=== PATIENT | female | born 1940 | race Caucasian/White ===

== ENCOUNTER → 2017-06-25 09:48 | Outpatient (CLI) | payer MEDICARE, SELFPAY ==
[2017-06-25 13:39] LABS: Absolute Neutrophil Count 3.1 X10^3/uL (2.0-7.7); Basophil# 0.02 X10^3/uL; Basophil% 0.4 % (0-1); Eosinophil# 0.09 X10^3/uL; Eosinophils% 1.7 % (0-5); Hematocrit 40.6 % (37-47); Hemoglobin 13.6 g/dl (12.0-15.0); Lymphocyte % 30.2 % (19-41); Mean Corp Hgb Conc 33.5 g/gl (32-36); Mean Corpuscular Hgb 32.9 pg (27.0-32.0); Mean Corpuscular Volume 98.1 fL (81-99); Mean Platelet Vol. 10.9 fl (6.2-12.0); Monocyte# 0.44 X10^3/uL; Monocyte% 8.3 % (0-10); Neutrophil # 3.14 X10^3/uL (2.7-7.7); Neutrophil % 59.2 % (47-70); Platelet Count 171 K/mm3 (150-450); RBC Distribution Width CV 12.2 % (11.6-14.6); RBC Distribution Width SD 43.3 fl (35.1-43.9); Red Blood Count 4.14 M/mm3 (4.2-5.4); White Blood Count 5.3 K/mm3 (4.4-11.0)
[2017-06-25 13:41] LABS: POSITIVE COUNT NO; POSITIVE DIFFERENTIAL NO; POSITIVE MORPHOLOGY NO
[2017-06-25 14:13] LABS: AST(SGOT) 27 U/L (15-37); Alanine Aminotransfer ALT/SGPT 17 U/L (13-56); Albumin, Serum 3.5 g/dL (3.2-5.0); Alkaline Phosphatase 89 U/L (45-117); Anion Gap 9 (5-15); BUN 11 mg/dL (7-18); BUN/Creat Ratio 12.9 RATIO (10-20); Calcium,Total 8.9 mg/dL (8.5-10.1); Chloride 105 mmol/L (98-107); Cholesterol 190 mg/dL (200); Creatinine, Serum 0.85 mg/dL (0.55-1.02); EST Glomerular Filtration Rate 69 mL/min (>60); Est Glom Filt Rate - Afr Amer 84 mL/min (>60); Globulin 3.5 g/dL (2.2-4.2); Glucose 86 mg/dL (74-106); High Density Lipoprotein 64 mg/dL; Potassium 4.1 mmol/L (3.5-5.1); Sodium Level 143 mmol/L (136-145); Thyroid Stim Hormone (TSH) 7.39 uIU/mL (0.358-3.74); Triglycerides 119 mg/dL; Very Low Density Lipoprotein 24 mg/dL (5-40)
[2017-06-26 09:41] LABS: Vitamin D,25 Hydroxy 30.6 ng/mL (29.95-100.01)
== END ==
PROVIDERS: Visit Provider Family Medicine Geriatric Medicine
DX: R53.83 Other fatigue (principal); E55.9 Vitamin D deficiency, unspecified; E78.4 Other hyperlipidemia
CPT/HCPCS: 36415; 80053; 80061; 82306; 84443; 85025

== ENCOUNTER → 2017-08-08 09:29 | Outpatient (CLI) | payer MEDICARE, SELFPAY ==
[2017-08-08 13:22] LABS: Thyroid Stim Hormone (TSH) 3.41 uIU/mL (0.358-3.74)
== END ==
PROVIDERS: Visit Provider Family Medicine Geriatric Medicine
DX: E05.90 Thyrotoxicosis, unspecified without thyrotoxic crisis or storm (principal)
CPT/HCPCS: 36415; 84443

== ENCOUNTER → 2017-12-30 12:14 | Outpatient (CLI) | payer MEDICARE, SELFPAY ==
[2017-12-30 13:22] LABS: Absolute Lymphocyte Count 1.54 X10^3/ul (0.83-4.51); Absolute Neutrophil Count 3.2 X10^3/uL (2.0-7.7); Basophil# 0.03 X10^3/uL; Basophil% 0.6 % (0-1); Eosinophils% 1.9 % (0-5); Hematocrit 41.7 % (37-47); Hemoglobin 13.6 g/dl (12.0-15.0); Lymphocyte # 1.54 X10^3/ul (4.0); Mean Corp Hgb Conc 32.6 g/gl (32-36); Mean Corpuscular Hgb 32.3 pg (27.0-32.0); Mean Platelet Vol. 10.8 fl (6.2-12.0); Monocyte# 0.45 X10^3/uL; Monocyte% 8.5 % (0-10); Neutrophil # 3.19 X10^3/uL (2.7-7.7); Platelet Count 185 K/mm3 (150-450); RBC Distribution Width SD 46.1 fl (35.1-43.9); Red Blood Count 4.21 M/mm3 (4.2-5.4); White Blood Count 5.3 K/mm3 (4.4-11.0)
[2017-12-30 13:28] LABS: POSITIVE COUNT NO; POSITIVE DIFFERENTIAL NO; POSITIVE MORPHOLOGY NO
[2017-12-30 13:44] LABS: ALB/GLOB Ratio 1.1 RATIO (0.9-2.4); AST(SGOT) 27 U/L (15-37); Alanine Aminotransfer ALT/SGPT 21 U/L (13-56); Albumin, Serum 3.7 g/dL (3.2-5.0); Alkaline Phosphatase 83 U/L (45-117); Anion Gap 11 (5-15); BUN 15 mg/dL (7-18); BUN/Creat Ratio 18.7 RATIO (10-20); Calcium,Total 8.8 mg/dL (8.5-10.1); Chloride 105 mmol/L (98-107); Cholesterol 182 mg/dL (200); EST Glomerular Filtration Rate 74 mL/min (>60); Est Glom Filt Rate - Afr Amer 89 mL/min (>60); Globulin 3.3 g/dL (2.2-4.2); Glucose 82 mg/dL (74-106); High Density Lipoprotein 70 mg/dL; Potassium 4.1 mmol/L (3.5-5.1); Sodium Level 145 mmol/L (136-145); Thyroid Stim Hormone (TSH) 3.02 uIU/mL (0.358-3.74); Triglycerides 116 mg/dL; Very Low Density Lipoprotein 23 mg/dL (5-40)
== END ==
PROVIDERS: Visit Provider Family Medicine Geriatric Medicine
DX: E55.9 Vitamin D deficiency, unspecified (principal); R53.83 Other fatigue; E78.4 Other hyperlipidemia
CPT/HCPCS: 36415; 80053; 80061; 82306; 84443; 85025

== ENCOUNTER → 2018-07-03 11:55 | Outpatient (CLI) | payer MEDICARE, SELFPAY ==
[2018-07-03 14:22] LABS: Absolute Lymphocyte Count 2.08 X10^3/ul (0.83-4.51); Absolute Neutrophil Count 3.9 X10^3/uL (2.0-7.7); Basophil# 0.04 X10^3/uL; Basophil% 0.6 % (0-1); Eosinophil# 0.11 X10^3/uL; Eosinophils% 1.7 % (0-5); Hematocrit 43.2 % (37-47); Hemoglobin 13.9 g/dl (12.0-15.0); Lymphocyte # 2.08 X10^3/ul (4.0); Lymphocyte % 31.4 % (19-41); Mean Corp Hgb Conc 32.2 g/gl (32-36); Mean Corpuscular Hgb 32.3 pg (27.0-32.0); Mean Corpuscular Volume 100.2 fL (81-99); Mean Platelet Vol. 10.2 fl (6.2-12.0); Monocyte% 7.6 % (0-10); Neutrophil # 3.87 X10^3/uL (2.7-7.7); Neutrophil % 58.4 % (47-70); Platelet Count 191 K/mm3 (150-450); RBC Distribution Width CV 12.8 % (11.6-14.6); RBC Distribution Width SD 46.1 fl (35.1-43.9); Red Blood Count 4.31 M/mm3 (4.2-5.4); White Blood Count 6.6 K/mm3 (4.4-11.0)
[2018-07-03 14:23] LABS: POSITIVE COUNT NO; POSITIVE DIFFERENTIAL NO; POSITIVE MORPHOLOGY NO
[2018-07-03 14:30] LABS: Vitamin D,25 Hydroxy 30.3 ng/mL (29.95-100.01)
[2018-07-03 14:48] LABS: ALB/GLOB Ratio 1.1 RATIO (0.9-2.4); AST(SGOT) 23 U/L (15-37); Alanine Aminotransfer ALT/SGPT 18 U/L (13-56); Albumin, Serum 3.7 g/dL (3.2-5.0); Alkaline Phosphatase 76 U/L (45-117); Anion Gap 7 (5-15); BUN 12 mg/dL (7-18); BUN/Creat Ratio 13.4 RATIO (10-20); Calcium,Total 8.8 mg/dL (8.5-10.1); Chloride 106 mmol/L (98-107); Cholesterol 201 mg/dL (200); Creatinine, Serum 0.89 mg/dL (0.55-1.02); EST Glomerular Filtration Rate 65 mL/min (>60); Est Glom Filt Rate - Afr Amer 79 mL/min (>60); Globulin 3.3 g/dL (2.2-4.2); Glucose 97 mg/dL (74-106); High Density Lipoprotein 76 mg/dL; Potassium 3.9 mmol/L (3.5-5.1); Sodium Level 143 mmol/L (136-145); Thyroid Stim Hormone (TSH) 3.15 uIU/mL (0.358-3.74); Triglycerides 88 mg/dL; Very Low Density Lipoprotein 18 mg/dL (5-40)
== END ==
PROVIDERS: Family Provider Family Medicine Geriatric Medicine; PCP Family Medicine Geriatric Medicine; Referring Provider Family Medicine Geriatric Medicine; Visit Provider Family Medicine Geriatric Medicine
DX: R53.83 Other fatigue (principal); E78.5 Hyperlipidemia, unspecified; E55.9 Vitamin D deficiency, unspecified
CPT/HCPCS: 36415; 80053; 80061; 82306; 84443; 85025

== ENCOUNTER → 2018-08-01 12:11 | Outpatient (CLI) | payer MEDICARE, SELFPAY ==
--- NOTE | 2018-08-01 | BI_ITS ---
MAMMOGRAPHY - BILATERAL SCREENING REASON FOR EXAM: Female, 78 years old. Routine annual screening examination. PERTINENT HISTORY: Sister with breast cancer. TECHNIQUE: Digital bilateral breast matt (3D mammographic acquisition) in the CC and MLO projections. 2-D mediolateral oblique (MLO) and craniocaudad (CC) views of both breasts were obtained. CAD: Full Field Digital Mammography with Computer Added Detection was performed. COMPARISON: Comparison is made with prior study dated October 02, 2016 and August 01, 2015. FINDINGS: Breast Composition: There are scattered areas of fibroglandular density. There are no dominant masses or suspicious calcifications. No other significant abnormalities are identified. There has been no significant change since the prior study. BI/SCREENING MAMM (CAD), BILAT IMPRESSION: Stable bilateral screening mammogram. Yearly follow-up mammogram recommended. (A) ASSESSMENT CATEGORY: BIRADS Category 1: Negative. A letter regarding these results will be sent to the patient by the facility within 30 days. Approximately 10% of breast cancers are not detected by mammography. A normal mammogram should not delay biopsy of a clinically suspicious abnormality. [id number] Electronically Signed: Alberto Laurent, at 13:44 EDT , Service support ,
--- NOTE | 2018-08-01 12:45 | CT_ITS ---
STUDY: LOW DOSE CT LUNG CANCER SCREENING REASON FOR EXAM: Female, 78 years old. Tobacco abuse, one half pack per day 35 years, screening. RADIATION DOSAGE (If Supplied By Facility): CTDIvol = ( 1.70 ) mGy, DLP = ( 56.37 ) mGycm Individualized dose optimization techniques were used for this CT. TECHNIQUE: No contrast was administered. Low dose technique was utilized (average mAS-38 and kVp 120). Thin slice transaxial CT imaging of the chest. Correlate sagittal 2-D MPR Nodule measured using lung windows on PACS and/or independent workstation with automated measurement of minimum and maximum diameter. Nodule measurement reported as average diameter rounded to the nearest whole number. Growth is defined as an increase ins size of greater than 1.5 mm. COMPARISON: CT Low Dose chest screening 06/30/2015, 12/07/2014.. FINDINGS: Total lung nodules (excluding granulomas): A few small noncalcified pulmonary nodules are present, the largest in the left lower lobe posterior basilar measuring 4 mm. Largest in the right lower lobe measuring 3.8 mm. Stable pattern compared to prior imaging and most consistent with sequela of old granulomatous disease. Multiple calcified pulmonary nodules consistent with old granulomas disease. Emphysema: Generalized pulmonary hyperlucency and hyperinflation with flattening of hemidiaphragms in a pattern consistent with the presence of COPD without clark features of centrilobular or paraseptal emphysema. Endobronchial lesion: Left lower lobar bronchus, endobronchial nodule measuring approximately 3.2 mm. This was not clearly apparent on prior imaging of 2015. Aorta: Nondilated. Coronary arteries: Prominent chronic calcifications of the LAD, left main, RCA, minimal of the circumflex. Heart: No cardiomegaly or pericardial effusion. Pulmonary artery: Nondilated. Mediastinal nodes: Multiple calcified lymph nodes of the mediastinum consistent with old granulomatous disease. Calcified lymph nodes also in the ana bilaterally. No acute lymphadenopathy. Normal esophagus. Other chest and abdominal findings: Supraclavicular soft tissues, body wall soft tissues, upper abdomen, and osseous structures exhibit no acute process. CT/Low Dose CT Lung Screening IMPRESSION: Probably calcified small pulmonary nodules. A few noncalcified pulmonary nodules are present, stable pattern. Each of these is most consistent with chronic manifestation of old granulomatous disease. ACR lung RADS category 2, benign appearance. Prominent coronary atherosclerosis. Continue annual low-dose CT chest screening. IMPORTANT NOTES FOR USE: ACR Lung-RADS Version 1.0 Assessment Categories Release Date: August 10, 2013 Category: Coded 0-4 bases on nodule(s) with highest degree of suspicion. Negative screen is defined as categories 1 and 2; a positive screen is defined as categories 3 and 4. Category 3 and 4A nodules that are unchanged on interval CT should be coded as category 2, and individuals returned to screening in 12 months. Category 4X: Category 3 or 4 nodules with additional imaging findings that increase the suspicion of lung cancer, such as spiculation, GGN that doubles in size in 1 year, enlarged lymph notes, etc. Category Modifiers: S (significant finding unrelated to lung cancer) and C (prior history of treated lung cancer) may be added to the 0-4 Lung-RADS Electronically Signed: aJnes Bacon MD at 17:51 EDT Tel , Service support ,
== END ==
PROVIDERS: Family Provider Family Medicine Geriatric Medicine; PCP Family Medicine Geriatric Medicine; Referring Provider Family Medicine Geriatric Medicine; Visit Provider Family Medicine Geriatric Medicine
DX: Z12.31 Encounter for screening mammogram for malignant neoplasm of breast (principal); Z87.891 Personal history of nicotine dependence
CPT/HCPCS: 77063; 77067; G0297

== ENCOUNTER → 2018-08-15 11:06 | Outpatient (CLI) | payer MEDICARE, SELFPAY ==
[2018-08-15 13:17] LABS: T4 Total, Thyroxin 11.6 ug/dL (4.8-13.9); Vitamin D,25 Hydroxy 26.1 ng/mL (29.95-100.01)
== END ==
PROVIDERS: Family Provider Family Medicine; PCP Family Medicine; Referring Provider Family Medicine; Visit Provider Family Medicine
DX: E03.9 Hypothyroidism, unspecified (principal); E55.9 Vitamin D deficiency, unspecified
CPT/HCPCS: 36415; 82306; 84436; 84443

== ENCOUNTER → 2019-08-19 11:20 | Outpatient (CLI) | payer MEDICARE, SELFPAY ==
[2019-08-19 15:57] LABS: T4 Total, Thyroxin 12.5 ug/dL (4.8-13.9); Thyroid Stim Hormone (TSH) 2.54 uIU/mL (0.358-3.74)
== END ==
PROVIDERS: PCP Family Medicine; Visit Provider Family Medicine
DX: E03.9 Hypothyroidism, unspecified (principal)
CPT/HCPCS: 36415; 84436; 84443

== ENCOUNTER → 2020-08-22 15:53 | Outpatient (CLI) | payer MEDICARE, SELFPAY ==
[2020-08-22 18:29] LABS: Vitamin D,25 Hydroxy 37.6 ng/mL
[2020-08-22 18:41] LABS: T4 Total, Thyroxin 10.8 ug/dL (4.8-13.9); Thyroid Stim Hormone (TSH) 4.66 uIU/mL (0.358-3.74)
== END ==
PROVIDERS: PCP Family Medicine; Referring Provider Family Medicine; Visit Provider Family Medicine
DX: E55.9 Vitamin D deficiency, unspecified (principal); E03.9 Hypothyroidism, unspecified
CPT/HCPCS: 36415; 82306; 84436; 84443

== ENCOUNTER → 2020-08-29 13:48 | Outpatient (CLI) | payer MEDICARE, SELFPAY ==
--- NOTE | 2020-08-29 13:51 | CT_ITS ---
STUDY: LOW DOSE CT LUNG CANCER SCREENING REASON FOR EXAM: Female, 80 years old. Long history of smoking. Screening for lung cancer. RADIATION DOSAGE (If Supplied By Facility): CTDIvol = ( 2.01 ) mGy, DLP = ( 66.95 ) mGycm TECHNIQUE: No contrast was administered. Low dose technique was utilized (average mAS-38 and kVp 120). 1.25 mm axial source images with a slice interval of 1.25-mm were reconstructed in lung windows. 2.5 mm axial source images with a slice interval of 2.5-mm were reconstructed in lung windows. 5.0 mm axial source images with a slice interval of 5.0-mm were reconstructed in soft tissue windows. Nodule measured using lung windows on PACS and/or independent workstation with automated measurement of minimum and maximum diameter. Nodule measurement reported as average diameter rounded to the nearest whole number. Growth is defined as an increase ins size of greater than 1.5 mm. COMPARISON: 08/01/2018 NODULES: There is hyperinflation of the lungs consistent with chronic obstructive lung disease (COPD). Multiple stable noncalcified pulmonary nodules are again noted, the largest in the left lower lobe posterior basilar measuring 6 x 4 mm. Largest in the right lower lobe measuring 3 x 4 mm. Multiple stable calcified pulmonary nodules consistent with old granulomatous disease. There are no endobronchial lesions. There is no demonstrated pleural abnormality. Normal heart and pericardium. Normal mediastinum. Normal hilar regions. Normal unenhanced pulmonary arteries. Normal aorta arch and descending thoracic aorta. Normal osseous structures. There is no demonstrated abnormality of the visualized upper abdomen. CT/Low Dose CT Lung Screening IMPRESSION: Lung-RADS category 2. Benign findings. Multiple stable noncalcified pulmonary nodules are again noted, the largest in the left lower lobe posterior basilar measuring 6 x 4 mm. Largest in the right lower lobe measuring 3 x 4 mm. Multiple stable calcified pulmonary nodules consistent with old granulomatous disease. Recommendation: Routine screening CT scan in one year. IMPORTANT NOTES FOR USE: ACR Lung-RADS Version 1.0 Assessment Categories Release Date: August 10, 2013 Category: Coded 0-4 bases on nodule(s) with highest degree of suspicion. Negative screen is defined as categories 1 and 2; a positive screen is defined as categories 3 and 4. Category 3 and 4A nodules that are unchanged on interval CT should be coded as category 2, and individuals returned to screening in 12 months. Category 4X: Category 3 or 4 nodules with additional imaging findings that increase the suspicion of lung cancer, such as spiculation, GGN that doubles in size in 1 year, enlarged lymph notes, etc. Category Modifiers: S (significant finding unrelated to lung cancer) and C (prior history of treated lung cancer) may be added to the 0-4 Lung-RADS Electronically Signed: Thierry Aragon MD at 7:09 EDT Tel , Service support ,
== END ==
PROVIDERS: PCP Family Medicine; Referring Provider Family Medicine; Visit Provider Family Medicine
DX: Z12.2 Encounter for screening for malignant neoplasm of respiratory organs (principal); Z87.891 Personal history of nicotine dependence
CPT/HCPCS: 71271

== ENCOUNTER → 2020-10-18 08:07 | Outpatient (CLI) | payer MEDICARE, SELFPAY ==
[2020-10-18 10:43] LABS: Thyroid Stim Hormone (TSH) 4.36 uIU/mL (0.358-3.74)
== END ==
PROVIDERS: PCP Family Medicine; Visit Provider Family Medicine
DX: E03.9 Hypothyroidism, unspecified (principal)
CPT/HCPCS: 36415; 84443

== ENCOUNTER → 2020-12-28 08:04 | Outpatient (CLI) | payer MEDICARE, SELFPAY ==
[2020-12-28 10:59] LABS: Thyroid Stim Hormone (TSH) 2.17 uIU/mL (0.358-3.74)
== END ==
PROVIDERS: PCP Family Medicine; Referring Provider Family Medicine; Visit Provider Family Medicine
DX: E03.9 Hypothyroidism, unspecified (principal)
CPT/HCPCS: 36415; 84443

== ENCOUNTER → 2021-09-13 | Outpatient (CLI) | payer MEDICARE, SELFPAY ==
[2021-09-13 18:19] LABS: Anion Gap 5 (5-15); BUN 20 mg/dL (7-18); BUN/Creat Ratio 23.3 RATIO (10-20); Calcium,Total 9.2 mg/dL (8.5-10.1); Chloride 106 mmol/L (98-107); Creatinine, Serum 0.86 mg/dL (0.55-1.02); EST Glomerular Filtration Rate 68 mL/min (>60); Est Glom Filt Rate - Afr Amer 82 mL/min (>60); Glucose 88 mg/dL (74-106); Potassium 4.7 mmol/L (3.5-5.1); Sodium Level 142 mmol/L (136-145); T4 Total, Thyroxin 12.7 ug/dL (4.8-13.9); Thyroid Stim Hormone (TSH) 3.11 uIU/mL (0.358-3.74)
== END | disposition home or self-care (01) ==
LOC: MFPLAB 16:27
PROVIDERS: PCP Family Medicine; Visit Provider Family Medicine
DX: Z00.00 Encounter for general adult medical examination without abnormal findings (principal); E03.9 Hypothyroidism, unspecified
CPT/HCPCS: 36415; 80048; 84436; 84443

== ENCOUNTER → 2021-09-16 | Outpatient (CLI) | payer MEDICARE, SELFPAY ==
--- NOTE | 2021-09-16 09:56 | CT_ITS ---
HISTORY: SMOKER-1PPD X 60 YEARS. TECHNIQUE: Helically acquired images were obtained of the chest without contrast. A radiation dose optimization technique was used for this scan. 750 images. COMPARISON: 08/29/2020, 08/01/2018. FINDINGS: LARGE AIRWAYS: Grossly patent with minimal adherent and dependent material. LUNGS: Emphysema without bullae. Mild biapical scarring. Calcified granulomas. Noncalcified nodules measuring up to 4 mm in the right lower lobe and 6 mm in the left lower lobe again seen. PLEURA: No pneumothorax or significant pleural effusion. HEART/PERICARDIUM: Heart within normal limits in size. Coronary artery calcification present. No pericardial effusion. VESSELS: Thoracic aorta nondilated. MEDIASTINUM/SAÚL: Numerous calcified lymph nodes. BONES/CHEST WALL: 9 mm oval right inner upper breast nodule now seen. CT/Low Dose CT Lung Screening IMPRESSION: New 9 mm right breast nodule; recommend dedicated breast imaging 2 assess for benign lesion such as intramammary lymph node versus small neoplasm. Stable bilateral pulmonary nodules. Lung-RADS category 2: Benign appearance. Continue annual screening with low-dose CT. Electronically Signed: Caroline Carpio MD at 12:42 EDT ,
== END | disposition home or self-care (01) ==
PROVIDERS: PCP Family Medicine; Visit Provider Family Medicine
DX: F17.210 Nicotine dependence, cigarettes, uncomplicated (principal)
CPT/HCPCS: 71271

== ENCOUNTER → 2021-09-20 | Outpatient (CLI) | payer MEDICARE, SELFPAY ==
--- NOTE | 2021-09-20 14:18 | BI_ITS ---
MAMMOGRAPHY - BILATERAL DIAGNOSTIC REASON FOR EXAM: Female, 81 years old. Right breast mass. PERTINENT HISTORY: Sister with breast cancer. TECHNIQUE: Digital bilateral breast matt (3D mammographic acquisition) in the CC and MLO projections. 2-D mediolateral oblique (MLO) and craniocaudad (CC) views of both breasts were obtained. CAD: Full Field Digital Mammography with Computer Added Detection was performed. COMPARISON: Comparison is made with prior study dated 08/01/2018. FINDINGS: Breast Composition: There are scattered areas of fibroglandular density. The palpable mass corresponds to a 1.1 cm x 1 cm spiculated nodule in the deep upper central portion of the right breast. Correlation with ultrasound is recommended. No other significant abnormalities are identified. BI/DIAG MAMM W/CAD, BILAT IMPRESSION: The palpable abnormality corresponds to 1.1 cm x 1 some spicular nodule in the deep upper central portion of the right breast as described. Correlation with ultrasound is recommended. ASSESSMENT CATEGORY: BIRADS Category 0: Incomplete. Need additional imaging evaluation. A letter regarding these results will be sent to the patient by the facility within 30 days. Approximately 10% of breast cancers are not detected by mammography. A normal mammogram should not delay biopsy of a clinically suspicious abnormality. Electronically Signed: Alberto Laurent MD at 15:11 EDT ,
--- NOTE | 2021-09-20 15:30 | US_ITS ---
STUDY: ULTRASOUND BREAST - RIGHT REASON FOR EXAM: Female, 81 years old. Palpable lump in the right breast. TECHNIQUE: Axial and longitudinal images of the RIGHT breast were performed with a high resolution ultrasound transducer. # OF IMAGES: 59 COMPARISON: Comparison is made with prior mammogram done earlier in the day. FINDINGS: RIGHT Breast: The mammographic abnormality corresponds to a 1 cm x 0.9 cm x 0.6 cm irregular hypoechoic solid nodule at the 1 o''clock position of the breast at 7 cm from nipple. Biopsy recommended. Incidental note is made of a heterogeneous appearance to axillary lymph nodes. The largest lymph node measures 1.9 cm x 1.3 cm x 0.8 cm. US/Breast Limited Unilateral IMPRESSION: 1 cm x 0.9 cm x 0.6 cm spiculated solid mass at the 1 o''clock position of the breast is 7 cm from nipple. Biopsy recommended. Enlarged heterogeneous appearance of the 2 axillary lymph nodes. ASSESSMENT CATEGORY: BIRADS Category 4: Suspicious - Biopsy Should Be Considered. A letter regarding these results will be sent to the patient by the facility within 30 days. Electronically Signed: Alberto Laurent MD at 15:49 EDT ,
== END | disposition home or self-care (01) ==
LOC: OPBI 14:16
PROVIDERS: PCP Family Medicine; Visit Provider Family Medicine
DX: R92.8 Other abnormal and inconclusive findings on diagnostic imaging of breast (principal); N63.10 Unspecified lump in the right breast, unspecified quadrant
CPT/HCPCS: 76642; 77062; 77066; G0279

== ENCOUNTER → 2021-09-25 | Outpatient (CLI) | payer MEDICARE, SELFPAY ==
--- NOTE | 2021-09-25 | IMM_PTH ---
PATIENT: BRANDON CAUSEY LOC: [facility] U#:[id number] AGE/SX: 81/F ROOM: RE09/25/[address]: Dr. Marlon Lockhart MD : 1940 BED: DIS: 09/25/2021 SPEC #: [id number] RECD: 09/26/21 13:34 STATUS: GENOVEVA RESharmila #: [id number] DADA: 09/25/21 00:[address]: Marlon Lockhart DEPT: IMMUNOHISTOCHEMISTRY RECD BY: Merly De La Cruz ENTERED: 09/26/21 13:35 SP TYPE: IMMUNO OTHR DR: Dr. Breonna Dooley MD Tissues: Right breast, NOS Procedures: CALPONIN-1 (add) CK5-6 (add) CK8 (add) E-CAD (add) HER2 ONI (add) KI-67 (add) P53 (add) DE (add) P40 (add) ER (initial) PHYSICIAN & [address] [address] SPECIMEN INFORMATION: Tissue Source: Right breast Clinical Info: Right breast mass Specimen Number: [id number] CPT code: 43069, 11914 x6, 81236 x3 METHODOLOGY: Deparaffinized sections of prefer/formalin-fixed tissue or PAP/DQ stained slides are incubated with monoclonal/polyclonal antibodies/oligonucleotide probes. Localization is made via biotin free immunoperoxidase method. Appropriate controls are performed and reacted as expected. Results on target cell population are indicated in the following table: RESULTS: ANTIBODY / CLONE RESULT E-Cad (ECH-6) positive CK8 (01keauA14) positive Calponin-1 (UK298P) negative CK5-6 (D5 & 1684) negative P40 (BC28) negative P53 (DO-7) positive, strong and diffuse Ki-67 (30-9) positive, low, 15-20% MORPHOMETRIC ANALYSIS ER (clone 6F11) >95%, strong intensity DE (clone 16/1E2) variable, 0-19%, weak intensity Her-2Neu (clone CB11) 1+, focal The prognostic test for HER2 is performed on formalin-fixed paraffin embedded tissue. A 3+ (positive) staining pattern is defined as intense, homogeneous, complete, circumferential membranous staining in >10% of contiguous tumor cells. A similar weak (2+) staining pattern is interpreted as equivocal. EVELIA follow-up testing is recommended for all equivocal cases. Positivity/negativity for ER/DE is reported if > or < 1% of the tumor cells are immuno- reactive, respectively. The ASCO/CAP criteria is used for scoring. Reference: Journal of Clinical Oncology, 2013; 31:9341-7494 & 2010; 16:1241-5263. Duration of fixation: 9 Hrs; Sample Adequate: Yes. These assays have not been validated on decalcified tissues. Results should be interpreted with caution given the likelihood of false negativity on decalcified specimens. These tests were developed and their performance characteristics determined by [facility]. They may not have been cleared or approved by the U.S. Food and Drug Administration. The FDA has determined that such clearance or approval is not necessary. The above immunohistochemical/dualISH markers are ordered and reviewed by the Pathologist. INTERPRETATION: Right breast mass, core biopsy: Invasive ductal carcinoma, nuclear grade 2. Positive for estrogen receptors (favorable prognostic indicator). Positive for progesterone receptors (favorable prognostic indicator). Negative for overexpression of BPB8hyx. SJ:yumiko 09/27/2021
--- NOTE | 2021-09-25 10:20 | BRBX_PTH ---
PATIENT: BRANDON CAUSEY LOC: [facility] U#:[id number] AGE/SX: 81/F ROOM: RE09/25/[address]: Dr. Marlon Lockhart MD : 1940 BED: DIS: 09/25/2021 SPEC #: [id number] RECD: 09/25/21 11:14 STATUS: GENOVEVA VÁZQUEZ #: [id number] DADA: 09/25/21 10:[address]: Marlon Lockhart DEPT: SURGICAL PATHOLOGY RECD BY: Amanda Zuniga ENTERED: 09/25/21 12:48 SP TYPE: BREAST BX OTHR DR: Dr. Breonna Dooley MD Tissues: Right breast, NOS Procedures: Surgery Specimen Level IV HEADER OPERATION: Right breast biopsy PRE-OP DIAGNOSIS: Right breast mass TISSUE SUBMITTED: Right breast tissue MICROSCOPIC DIAGNOSIS Right breast mass, core biopsy: Invasive ductal carcinoma, nuclear grade 2/3 (1 cm in greatest length). See comment. PRAKASH:yumiko 09/26/2021 COMMENT Immunohistochemistry ([id number]) supports the above diagnosis. ER/MI/Jbm8rom studies are being performed on sections of tumor and the results from this study will be reported separately ([id number]). Case has been reviewed in consultation with Dr. Dominguez who concurs with the above diagnosis. IDC:AM MICROSCOPIC DESCRIPTION Slides are reviewed. GROSS DESCRIPTION Received in fixative is one container labeled with the patient's name and designated right breast. The specimen consists of multiple elongated fragments of macias-yellow fibroadipose tissue that in aggregate measure 2 x 0.3 x 0.1 cm. The entire specimen is submitted in one cassette. / PRAKASH:yumiko 09/25/2021 TC:0 CPT: 42341
== END | disposition home or self-care (01) ==
PROVIDERS: PCP Family Medicine; Visit Provider Surgery
DX: N63.10 Unspecified lump in the right breast, unspecified quadrant (principal)
CPT/HCPCS: 88305; 88341; 88342

== ENCOUNTER 2021-10-10 08:17 | Day surgery (SDC) | payer MEDICARE, SELFPAY ==
--- NOTE | 2021-10-10 | AXNB_PTH ---
PATIENT: BRANDON CAUSEY LOC: [facility] – [place] U#:[id number] AGE/SX: 81/F ROOM: RE10/10/[address]: Dr. Marlon Lockhart MD : 1940 BED: DIS: 10/10/2021 SPEC #: [id number] RECD: 10/10/21 11:20 STATUS: GENOVEVA VÁZQUEZ #: [id number] DADA: 10/10/21 00:[address]: Marlon Lockhart DEPT: SURGICAL PATHOLOGY RECD BY: Merly De La Cruz ENTERED: 10/10/21 12:06 SP TYPE: AX NODE BX OTHR DR: Dr. Breonna Dooley MD Tissues: A - Axillary lymph node, NOS B - Right breast, NOS Procedures: Frozen Section (charge) Frozen Section Add'l ([facility]) Surgery Specimen Level V HEADER OPERATION: Ultrasound-guided wire localization lumpectomy with SN biopsy PRE-OP DIAGNOSIS: Right breast cancer TISSUE SUBMITTED: A ? Right axillary sentinel lymph nodes, FS at 11:15 a.m. B ? Right breast mass FROZEN SECTION DIAGNOSIS A. Right axillary sentinel lymph nodes, biopsy: Two out of two lymph nodes, negative for metastatic carcinoma. PRAKASH:yumiko 10/10/2021 MICROSCOPIC DIAGNOSIS A. Right axillary sentinel lymph nodes, biopsy: Two out of two lymph nodes, negative for metastatic carcinoma. See comment. B. Right breast mass, ultrasound-guided wire localization lumpectomy: Invasive ductal carcinoma. See cancer summary in the comment section. PRAKASH:yumiko 10/13/2021 COMMENT A. The lymph nodes are negative for metastatic carcinoma on multiple H & E levels and immunohisto-chemical stains for cytokeratins ([id number]). B. BREAST CANCER SUMMARY Procedure - wire localization lumpectomy Specimen laterality - right Tumor site ? not specified Tumor size ? 1.3 x 1 x 1 cm Histologic type ? invasive ductal carcinoma, no specific type. Histologic grade (Phyllis grade): Glandular/tubular differentiation score - 3 Nuclear pleomorphism score - 2 Mitotic count score - 1 Overall grade - grade 2 (score of 6) Tumor focality ? single focus of invasive carcinoma. Ductal carcinoma in situ ? not identified Lobular carcinoma in situ ? no lobular carcinoma in situ is noted in the specimen. Tumor extension: Skin ? not present Nipple ? not applicable Skeletal muscle ? not present Margins: Invasive ductal carcinoma is 0.5 cm away from the closest lateral margin. Regional lymph nodes: Total number of lymph nodes examined - 2 Number of sentinel lymph nodes examined - 2 Number of lymph nodes with macrometastases, micrometastases or isolated tumor cells - 0 Treatment effect - no known presurgical therapy. Lymphvascular invasion ? not identified Dermal lymphvascular invasion ? not applicable Distant metastasis ? not applicable Additional Pathologic Findings ? - focal mild intraductal hyperplasia without atypia. - Chronic inflammation surrounding the lobules. Ancillary Studies: Previously performed on same tumor ([id number] / [id number]) ER: positive (>95%, strong intensity) IA: positive (variable, 0-19%, weak intensity) Gsz4usk: negative (1+, focal) Microcalcifications ? present in non-neoplastic tissue. Clinical History - Please make reference to previous specimen ([id number]), right breast mass, core biopsy with diagnosis of ?invasive ductal carcinoma.? PATHOLOGIC STAGE: pT1c pN0(sn) pMx The above summary is in compliance with [employer] (CAP) Cancer Protocols Checklist and [place] Joint Committee on Cancer (AJCC), Staging Manual, 8th Ed. MICROSCOPIC DESCRIPTION Slides are reviewed. GROSS DESCRIPTION A - Received fresh for frozen section diagnosis labeled with the patient's name is a specimen designated right axillary sentinel lymph node. The specimen consists of two pieces of adipose tissue containing two nodules measuring 2 x 2 x 0.6 cm and 2 x 1.5 x 0.7 cm. Two lymph nodes are identified measuring 0.6 and 2 cm in greatest dimension. The lymph nodes are submitted in entirety for frozen section diagnosis in two cassettes as follows: 1 ? one bisected lymph node, 2 - one bisected lymph node. / PRAKASH:yumiko 10/10/2021 B - Received fresh for intraoperative consultation labeled with the patient's name is a specimen designated right breast mass. The specimen consists of a piece of fibroadipose tissue without needle localization measuring 5 x 3.5 x 2 cm. The specimen is oriented as follows: short suture ? superior, long suture ? lateral. The specimen is inked as follows: anterior - yellow, posterior - black, superior - blue, inferior - green, medial - red and lateral - orange. Serial sections reveal a macias, indurated mass measuring 1.3 x 1 x 1 cm. This mass is 0.7 cm away from the closest lateral margin. This information is conveyed to the surgeon intraoperatively. Sections of the rest of the specimen reveal macias-yellow adipose cut surfaces mixed with scant fibrous areas. Seamstress Fitter sections are submitted in ten cassettes as follows: 1??perpendicular superior, inferior and posterior margins, 2 - perpendicular medial, lateral and anterior margins, 3-7 - entire tumor, 8-10 - education courses sales representative sections away from the tumor. Sections are submitted after additional fixation. / PRAKASH:yumiko 10/11/2021 TC:0 CPT: 06812 x2, 42068, 65023, 73412
--- NOTE | 2021-10-10 | IMM_PTH ---
PATIENT: BRANDON CAUSEY LOC: [facility] – [place] U#:[id number] AGE/SX: 81/F ROOM: RE10/10/[address]: Dr. Marlon Lockhart MD : 1940 BED: DIS: 10/10/2021 SPEC #: [id number] RECD: 10/13/21 12:31 STATUS: GENOVEVA KATHIE #: [id number] DADA: 10/10/21 00:[address]: Marlon Lockhart DEPT: IMMUNOHISTOCHEMISTRY RECD BY: Merly De La Cruz ENTERED: 10/13/21 12:32 SP TYPE: IMMUNO OTHR DR: Dr. Breonna Dooley MD Tissues: A - Axillary lymph node, NOS Procedures: CK7 (add) Pankeratin (initial) Pankeratin (add) PHYSICIAN & INSTITUTION [place] [address] SPECIMEN INFORMATION: Tissue Source: A ? Right axillary sentinel lymph nodes Clinical Info: Right breast cancer Specimen Number: [id number] A1 & A2 CPT code: 91015, 91744 x3 METHODOLOGY: Deparaffinized sections of prefer/formalin-fixed tissue or PAP/DQ stained slides are incubated with monoclonal/polyclonal antibodies/oligonucleotide probes. Localization is made via biotin free immunoperoxidase method. Appropriate controls are performed and reacted as expected. Results on target cell population are indicated in the following table: RESULTS: ANTIBODY / CLONE RESULT Block A1 AE1-3 (AE1/AE3/PCK26) negative CK7 (OV-TL12/30) negative Block A2 AE1-3 (AE1/AE3/PCK26) negative CK7 (OV-TL12/30) negative These tests were developed and their performance characteristics determined by [facility]. They may not have been cleared or approved by the U.S. Food and Drug Administration. The FDA has determined that such clearance or approval is not necessary. The above immunohistochemical/dualISH markers are ordered and reviewed by the Pathologist. INTERPRETATION: A. Right axillary sentinel lymph nodes, biopsy: Two out of two lymph nodes, negative for metastatic carcinoma. SJ:yumiko 10/17/2021
--- NOTE | 2021-10-10 08:40 | NM_ITS ---
PROCEDURE: NUCLEAR MEDICINE Injection [place] Node - RIGHT breast(s). REASON FOR EXAM: Female, 81 years old. Right breast cancer. TECHNIQUE: Fair Play node localization using radionuclide methods of the RIGHT breast(s) was performed following subcutaneous administration of 1.1 mCi of of sulfur colloid Tc-99m. COMPARISON STUDIES : US - prior ultrasound of the right breast dated 09/20/2021. FINDINGS: 1.1 mCi of technetium labeled sulfur colloid was injected subcutaneously in 4 equal aliquots in the right periareolar region. NM/Lymph Node Injection Only IMPRESSION: Injection of 1.1 mCi of technetium labeled sulfur colloid for sentinel node imaging. Electronically Signed: Alberto Laurent MD at 9:33 EDT ,
[2021-10-10] MEDS: Lactated Ringers 1,000 ML 15 ML IV (09:10)
--- NOTE | 2021-10-10 09:18 | HP.PCM_ITS ---
History and Physical Date of Admission: 10/10/21 Intake Vital Signs ? 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 Required: No Accompanied by: Daughter Is patient in pain?: No Allergies No Known Allergies Allergy (Verified 09/29/21 14:05) Medications cholecalciferol (vitamin D3) 25 mcg (1,000 unit) capsule (Vitamin D3) 1,000 unit PO DAILY 07/19/16 [History Confirmed 09/29/21] folic acid 1 mg tablet 1 mg PO DAILY@0800 07/19/16 [History Confirmed 09/29/21] acetaminophen 500 mg tablet 1,000 mg PO Q8 #90 TABLETS 08/01/16 [Rx Confirmed 09/29/21] tramadol 50 mg tablet 50 - 100 mg PO Q6H PRN PRN Mod-Severe Pain (4-10/10) #90 TABLETS 08/01/16 [Rx Confirmed 09/29/21] levothyroxine 88 mcg capsule 88 mcg PO DAILY 09/25/21 [History Confirmed 09/29/21] PFSH Medical History?(Updated 09/29/21 @ 15:[address] Marlon Lockhart MD) Arthritis Cough Hypothyroid Rheumatoid arthritis Right breast cancer with malignant cells in regional lymph nodes no greater than 0.2 mm and no more than 200 cells SOB (shortness of breath) Weight loss Surgical History? S/P hysterectomy Status post left hip replacement Family History? Sister Breast cancerBrother CVA (cerebral vascular accident) Heart disease Social History? Smoking Status:? Current some day smoker alcohol intake:? never HPI HPI HPI: BRANDON CAUSEY, is a 81 F who presents to the office today for discussion of breast cancer.? Patient had right breast biopsy earlier this week which show ed a right breast cancer. ROS General General: No weight change, appetite, fatigue, colon cancer, breast cancer or weakness HEENT HEENT: Yes eye injury and eye surgery; No difficulty swallowing, swollen glands or hoarseness Endo Endocrine: No thyroid disease, diabetes mellitus, thyroid cancer, Hair loss, heat intolerance or cold intolerance Skin Skin: No rash or changing moles Breast Breast: No left breast lump, right breast lump, nipple discharge, breast pain, abnormal mammogram, abnormal US or breast enlargement Musc Musculoskeletal: Yes arthritis and rheumatoid arthritis; No back problems, gout or joint pain Cardio Cardiovascular: No murmur, pacemaker, heart disease, atrial fibrillation, high blood pressure, heart attack, heart stent, palpitations, shortness of breat with exertion or chest pain Psych Psychiatric: No depression, anxiety or hearing voices Resp Respiratory: Yes shortness of breath, No sleep apnea, Yes cough, No COPD, No asthma, No emphysema and No wheezing Gastro Gastrointestinal: No abdominal pain, No nausea or vomiting, No diarrhea, No constipation, No blood in stool, No acid reflux, No hemorrhoids, No ulcers, No gallbladder problem and No black,tarry stools [place] Hematologic: No blood thinners, No blood disorders, No bleeding, No anemia and No blood clots Neuro Neurologic: No system reviewed and no additional complaints, except as documented, No as per HPI, No abnormal gait, No abnormal hearing, No abnormal movements, No abnormal speech, No behavioral changes, No burning sensations, No confusion, No convulsions, No disequilibrium, No dizziness, No localized weakness, No frequent falls, No headache(s), No lack of coordination, No loss of vision, No memory loss, No numbness, No other visual disturbances, No radicular pain, No restless legs, No sensory deficit, No syncope, No tingling, No tremor(s), No weakness and No other Exam Const General: cooperative Orientation: alert and oriented x3 HENMT Head: normal to inspection Neck Neck: normal visual inspection and full ROM Chest Chest palpation & inspection: normal inspection of the chest Resp Effort & Inspection: normal respiratory effort Auscultation: clear to auscultation bilaterally Cardio Rate: regular rate Rhythm: regular rhythm GI Inspection: non-distended Palpation: soft and nontender Skin General: no rashes or lesions noted Neuro General: patient alert and patient oriented x3 Extrem General: full ROM Psych Appearance: grossly normal Mental Status: mental status grossly normal Assessment and Plan Assessment and Plan (1) Breast cancer, right: ?Status:?Acute ?Plan: Patient has right breast cancer which is ER/CA positive.? I discussed partial mastectomy the patient in detail.? I discussed the risks including but not limited to bleeding, infection, injury to nerves or lymphatics.? I discussed sentinel lymph node biopsy with her as well.? I did briefly discuss mastectomy as an alternative.? Patient would like to proceed with partial mastectomy and sentinel lymph node biopsy.? All questions were answered and the patient expressed understanding. Marlon Lockhart MD Pager: [facility] [address] [place] [address] [address] [place] [address] Office: I have re-examined the patient. There are no clinical changes since date of exam.
[2021-10-10 09:24] VITALS: BP 157/67; PULSE 59; RESP 18; TEMP 36.6; O2SAT 100; BMI 20.4
[2021-10-10] MEDS: Cefazolin 2 GM in 0.9% Normal Saline 100 ML IV (10:34)
[2021-10-10] MEDS: Isosulfan Blue 1% 5 ML Vial (10:46)
[2021-10-10] MEDS: 0.9% Normal Saline (Pres. free 10 ML Vial (10:46)
--- NOTE | 2021-10-10 11:24 | BI_ITS ---
SURGICAL BREAST SPECIMEN RADIOGRAPH CLINICAL: Document presence of tissue clip marker in biopsy specimen. FINDINGS: Specimen shows presence of tissue clip marker. Electronically Signed: Alberto Laurent MD at 11:49 EDT , BI/Breast Biopsy Specimen IMPRESSION: undefined
[2021-10-10] MEDS: Bupivacaine Mpf 0.5% 30 ML VIAL (11:27)
--- NOTE | 2021-10-10 11:45 | OP.PCM_ITS ---
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 Ultrasound-guided wire localization 2. Right partial mastectomy 3. Right axillary sentinel lymph node biopsy Specimen's removed: 1. Right axillary lymph nodes 2. Right partial mastectomy Description of Procedure: Patient was brought back to the operating room and general anesthesia was induced. The right breast was prepped and ultrasound was used to localize the mass. A wire was placed into the mass under ultrasound guidance. Next 5 cc of Lymphazurin was injected in the retroareolar space as well as 5 cc of saline. The breast was then massaged. The right axilla and breast were prepped in usual sterile fashion. An incision was made in the axilla and electrocautery was used to maintain hemostasis. The axilla was entered and 2 blue lymph nodes were removed and there were no further radioactive lymph nodes in the axilla. Hemostasis was maintained. Next an incision was made over the mass and the wire was followed to the mass and this was dissected free circumferentially using electrocautery. It was removed and marked and sent for pathology. The cavity was irrigated and suctioned dry and hemostasis was obtained using electrocautery. Both incisions were injected with local anesthetic. After the lymph nodes came back negative for carcinoma and the margins were negative the incision was closed with interrupted 3-0 Vicryl suture as well as running 4-0 Monocryl suture. The axilla was closed in same fashion. Glue was applied to both. Dressing and Surgi-Bra were placed. Admit VTE Documentation VTE Mechan Device Prophylaxis: SCD's
--- NOTE | 2021-10-10 11:48 | DCINST_ITS ---
Discharge Instructions Procedure Breast Surgery Diet Discharge Diet: No restrictions Activity Discharge Activity: May Not Drive (for 2-3 days or while taking narcotic pain medications.) May shower in (days): 1 Lifting Restrictions: 10 lbs for 1 week Dressing / Incision Call your doctor if your incision/area has: Continuous Slow Oozing, Sudden Increased Bleeding, Increased Pain/ Swelling, Increased Redness, Foul Smelling Discharge and Swelling at the incision site Call your doctor if you observe: Fever of 101 or Higher Suture Line Care: Avoid Pulling/Pushing and Avoid Pinching/Bending Cleanse incision/area with: Soap & Water Follow Up Care Please Follow Up With: Marlon Lockhart MD When: Please call to schedule 2 week follow up appointment. [phone] Test Results: Test results from this visit will be discussed in further detail at your follow- up appointment, if applicable. Discharge Plan Admission Attending Provider: Marlon Lockhart Primary Care Provider: Breonna Dooley Discharge Orders/Prescriptions Prescriptions: New oxycodone-acetaminophen [Percocet] 5-325 mg tablet 1 tab PO Q4H PRN (Reason: pain) 5 Days Qty: 20 0RF No Action levothyroxine 88 mcg capsule 88 mcg PO DAILY folic acid 1 MG tablet 1 mg PO DAILY@0800 cholecalciferol (vitamin D3) [Vitamin D3] 1,000 UNIT capsule 1,000 unit PO DAILY cyclobenzaprine 10 mg Tablet 10 mg PO QHS meloxicam 15 mg Tablet 15 mg PO DAILY Referrals / Follow Up: Breonna Dooley MD [Primary Care Provider] - Disposition Disposition (needs filled in before D/C Order can be placed): Home, Self Care
[2021-10-10 11:55] VITALS: BP 157/67; BP 166/82; PULSE 68; RESP 16; TEMP 36.6; O2SAT 95
[2021-10-10 12:00] VITALS: BP 157/67; BP 173/71; PULSE 62; RESP 16; O2SAT 96
[2021-10-10 12:15] VITALS: BP 157/67; BP 170/72; PULSE 58; RESP 16; O2SAT 96
[2021-10-10 12:30] VITALS: BP 157/67; BP 161/70; PULSE 57; RESP 16; TEMP 36.2; O2SAT 96
[2021-10-10 13:45] VITALS: BP 152/62; BP 157/67; PULSE 51; RESP 18; TEMP 36.3; O2SAT 96
== END 2021-10-10 13:48 | disposition home or self-care (01) ==
LOC: SDC 08:21 → AC 08:22
PROVIDERS: PCP Family Medicine; Referring Provider Surgery; Visit Provider Surgery
PROC: (CPT 19301; principal; 2021-10-10 11:00)
DX: C50.911 Malignant neoplasm of unspecified site of right female breast (principal); M06.9 Rheumatoid arthritis, unspecified; Z17.0 Estrogen receptor positive status [ER+]; F17.200 Nicotine dependence, unspecified, uncomplicated; R59.0 Localized enlarged lymph nodes; E03.9 Hypothyroidism, unspecified; Z79.899 Other long term (current) drug therapy; Z78.0 Asymptomatic menopausal state
CPT/HCPCS: 19302; 00400; 38792; 76098; 88305; 88307; 88331; 88332; 88341; 88342; A9541; J7120; J2405; J3490; Q9968

== ENCOUNTER 2021-11-20 14:47 | Outpatient (RCR) | payer MEDICARE, SELFPAY | END 2021-12-08 14:48 | disposition home or self-care (01) | LOC: RAO 14:47 | PROVIDERS: PCP Family Medicine; Referring Provider Student in an Organized Health Care Education/Training Program; Visit Provider Student in an Organized Health Care Education/Training Program | DX: C50.211 Malignant neoplasm of upper-inner quadrant of right female breast (principal); Z17.0 Estrogen receptor positive status [ER+] | CPT/HCPCS: 77014; 77280; 77290; 77295; 77300; 77332; 77334; 77336; 77387; 77412 ==

== ENCOUNTER → 2022-01-17 | Outpatient (CLI) | payer MEDICARE, SELFPAY ==
--- NOTE | 2022-01-17 10:53 | BD_ITS ---
STUDY: DUAL ENERGY X-RAY ABSORPTIOMETRY / DXA REASON FOR EXAM: Female, 81 years old. Screening for osteoporosis TECHNIQUE: Bone Mineral Density (BMD) measurements of lumbar spine and right hip were obtained. COMPARISON: Comparison is made with prior study dated 08/24/2015. FINDINGS: Lumbar Spine (L1-L4): g/cm2 (0.931) / T-score (-0.9) / Z-score (1.7) Findings are suggestive of normal bone density with a low fracture risk. Right Femur Total: g/cm2 (0.687) / T-score (-2.1) / Z-score (0.0) Right Femoral Neck: g/cm2 (0.566) / T-score (-2.5) / Z-score (0.2) The T-Scores on the most recent prior examination were: Lumbar Spine (L1-L4): There has been worsening of bone density since the previous examination. Right Femur Total: which represents a worsening of 6.4%. BD/Dexa Bone Density Study IMPRESSION: The patient is considered osteopenic as outlined below according to World Nilo Organization (WHO) criteria with a high fracture risk. There has been worsening of bone density since the previous examination. Reference Information: The T-score is the number of standard deviations above or below the standard which is normal for young adults at their peak bone mineral density. The World Health Organization (WHO) interprets the T-scores as follows: Above -1 Normal bone density Between -1 and -2.5 Osteopenia Equal to / or below -2.5 Osteoporosis As a practical clinical guideline, osteopenia may be graded as follows: Mild -1 through -1.5 Moderate -1.6 through -2.0 Severe -2.1 through -2.4 The Z-score is the number of standard deviations above or below age-matched controls. A Z-score of less than -1.5 would be considered abnormal. References: 1. NIH Osteoporosis and Related Bone Diseases www osteo.org 2. International Society for Clinical Densitometry www iscd.org 3. National Osteoporosis Foundation www nof.org Electronically Signed: Alberto Laurent MD at 15:47 EDT ,
== END | disposition home or self-care (01) ==
LOC: OPBD 10:45
PROVIDERS: PCP Family Medicine; Visit Provider Nurse Practitioner Family
DX: Z87.39 Personal history of other diseases of the musculoskeletal system and connective tissue (principal); Z79.811 Long term (current) use of aromatase inhibitors; Z13.820 Encounter for screening for osteoporosis
CPT/HCPCS: 77080

== ENCOUNTER → 2022-09-14 | Outpatient (CLI) | payer MEDICARE, SELFPAY | END | disposition home or self-care (01) | LOC: MFPLAB 14:42 | PROVIDERS: PCP Family Medicine; Visit Provider Family Medicine | DX: E03.9 Hypothyroidism, unspecified (principal) | CPT/HCPCS: 36415; 84443 ==

== ENCOUNTER → 2022-09-21 | Outpatient (CLI) | payer MEDICARE, SELFPAY ==
--- NOTE | 2022-09-21 11:50 | BI_ITS ---
MAMMOGRAPHY - BILATERAL SCREENING REASON FOR EXAM: Female, 82 years old. Routine annual screening examination. PERTINENT HISTORY: Personal history of breast cancer. Prior right lumpectomy with radiation treatment. Sister with breast cancer. TECHNIQUE: Digital bilateral breast marco (3D mammographic acquisition) in the CC and MLO projections. 2-D mediolateral oblique (MLO) and craniocaudad (CC) views of both breasts were obtained. CAD: Full Field Digital Mammography with Computer Added Detection was performed. COMPARISON: Comparison is made with prior study dated September 20, 2021 and October 10, 2021. FINDINGS: Breast Composition: There are scattered areas of fibroglandular density. There are no dominant masses or suspicious calcifications. The patient is status post lumpectomy in the upper deep central portion of the right breast. Resultant postsurgical scarring. Surgical clips are seen in the right axillary region. No other significant abnormalities are identified. BI/SCRN MAMM (CAD)W/MARCO BILAT IMPRESSION: Status post right lumpectomy. Postoperative scarring is seen. Yearly follow-up mammogram recommended. (A) ASSESSMENT CATEGORY: BIRADS Category 2: Benign. A letter regarding these results will be sent to the patient by the facility within 30 days. Approximately 10% of breast cancers are not detected by mammography. A normal mammogram should not delay biopsy of a clinically suspicious abnormality. [id number] Electronically Signed: Alberto Laurent MD at 12:45 EDT ,
== END | disposition home or self-care (01) ==
LOC: OPBI 11:44
PROVIDERS: PCP Family Medicine; Referring Provider Student in an Organized Health Care Education/Training Program; Visit Provider Student in an Organized Health Care Education/Training Program
DX: Z12.31 Encounter for screening mammogram for malignant neoplasm of breast (principal)
CPT/HCPCS: 77063; 77067

== ENCOUNTER → 2022-11-26 | Outpatient (CLI) | payer MEDICARE, SELFPAY | END | disposition home or self-care (01) | LOC: MFPLAB 09:25 | PROVIDERS: PCP Family Medicine; Visit Provider Family Medicine | DX: E03.9 Hypothyroidism, unspecified (principal) | CPT/HCPCS: 36415; 84443 ==

== ENCOUNTER → 2022-12-04 | Outpatient (CLI) | payer MEDICARE, SELFPAY ==
--- NOTE | 2022-12-04 18:42 | CT_ITS ---
INDICATION: 1 ppd x63 years, history of breast cancer, right sided lumpectomy. smoker to r/o lung cancer EXAMINATION: - CT Low Dose CT Chest for Lung Cancer Screening A radiation dose optimization technique was used for this scan. Radiation CTDIvol 2.01 Radiation DLP 63.69 COMPARISON: CT therapy planning 11/20/[address] 09/16/2021 and 08/29/2020.. FINDINGS: Low dose Noncontrast serial CT axial images through the chest with coronal and sagittal reformatted series. MEDIASTINUM: Dense coronary artery atherosclerotic calcifications. Stable calcified mediastinal lymph nodes. LUNG PARENCHYMA: Numerous bilateral subcentimeter pulmonary nodules, some of which are calcified granulomas, stable from 2020. PLEURA: No pleural effusion. No pneumothorax. BONES: Osseous structures are unremarkable for age. UPPER ABDOMEN: Unremarkable. CT/Low Dose CT Lung Screening IMPRESSION: Stable pulmonary nodules from 2020 without obvious recurrent disease on this noncontrast examination. Electronically Signed: Marlon Armas MD at 5:39 EDT ,
== END | disposition home or self-care (01) ==
PROVIDERS: PCP Family Medicine; Referring Provider Family Medicine; Visit Provider Family Medicine
DX: Z12.2 Encounter for screening for malignant neoplasm of respiratory organs (principal); Z87.891 Personal history of nicotine dependence
CPT/HCPCS: 71271

== ENCOUNTER → 2023-09-23 | Outpatient (CLI) | payer MEDICARE, SELFPAY ==
--- NOTE | 2023-09-23 11:48 | BI_ITS ---
MAMMOGRAPHY - BILATERAL SCREENING REASON FOR EXAM: Female, 83 years old. Routine annual screening examination. PERTINENT HISTORY: Personal history of breast cancer. Prior right lumpectomy with radiation therapy. Sister with breast cancer. TECHNIQUE: Digital bilateral breast marco (3D mammographic acquisition) in the CC and MLO projections. 2-D mediolateral oblique (MLO) and craniocaudad (CC) views of both breasts were obtained. CAD: Full Field Digital Mammography with Computer Added Detection was performed. COMPARISON: Comparison is made with prior study dated September 21, 2022 and October 10, 2021. FINDINGS: Breast Composition: There are scattered areas of fibroglandular density. There are no dominant masses or suspicious calcifications. Once again, the patient is status post lumpectomy in the upper deep central portion of the right breast. Stable postoperative scarring. No other significant abnormalities are identified. There has been no significant change since the prior study. BI/SCRN MAMM (CAD)W/MARCO BILAT IMPRESSION: Stable bilateral screening mammogram. Yearly follow-up mammogram recommended. (A) ASSESSMENT CATEGORY: BIRADS Category 2: Benign. A letter regarding these results will be sent to the patient by the facility within 30 days. Approximately 10% of breast cancers are not detected by mammography. A normal mammogram should not delay biopsy of a clinically suspicious abnormality. [id number] Electronically Signed: Alberto Laurent MD at 13:19 EDT ,
== END | disposition home or self-care (01) ==
LOC: OPBI 11:48
PROVIDERS: PCP Family Medicine; Referring Provider Student in an Organized Health Care Education/Training Program; Visit Provider Student in an Organized Health Care Education/Training Program
DX: Z12.31 Encounter for screening mammogram for malignant neoplasm of breast (principal); Z85.3 Personal history of malignant neoplasm of breast; Z92.3 Personal history of irradiation; Z80.3 Family history of malignant neoplasm of breast
CPT/HCPCS: 77063; 77067

== ENCOUNTER → 2024-07-06 | Outpatient (CLI) | payer MEDICARE, SELFPAY ==
--- NOTE | 2024-07-06 08:38 | RAD_ITS ---
EXAM: Right shoulder injection under fluoroscopic guidance. CLINICAL HISTORY: Pain. COMPARISON: None. TECHNIQUE: See below. FINDINGS: Informed consent was obtained. Fluoroscopic guidance, aseptic technique, local anesthesia were utilized. The right shoulder joint was entered directly with 20 gauge spinal needle. 2 cc of omni view 370 were introduced, confirming the tip of the needle to be within the glenohumeral joint. Subsequently, 4 cc of lidocaine 1% mixed with 8 cc of Depo-Medrol were injected and the needle removed. Patient tolerated the procedure well and was discharged home directly. RAD/Inj/Asp Estrada Jt Should/Hip/Knee IMPRESSION: Uneventful fluoro guided intra-articular injection of local anesthetic and a pa rticulate steroid. Reading Location: [place] [id number]
[2024-07-06] MEDS: Lidocaine 2% (5ml sdv) 5 ML VIAL.MPF INFILT (09:30)
[2024-07-06] MEDS: Betamethasone/Betamethasone 30 MG/5 ML Vial 12 MG INTRAARTIC (09:43)
[2024-07-06] MEDS: Lidocaine 1% (5 ml sdv) 5 ML Vial 4 ML INFILT (09:43)
== END | disposition home or self-care (01) ==
LOC: RAD 08:30
PROVIDERS: PCP Family Medicine; Referring Provider Specialist; Visit Provider Specialist
DX: M75.42 Impingement syndrome of left shoulder (principal); M19.012 Primary osteoarthritis, left shoulder; S46.012D Strain of muscle(s) and tendon(s) of the rotator cuff of left shoulder, subsequent encounter
CPT/HCPCS: 20610; 77002; J0702

== ENCOUNTER → 2024-09-18 | Outpatient (CLI) | payer MEDICARE, SELFPAY ==
--- NOTE | 2024-09-18 13:35 | RAD_ITS ---
PROCEDURE: ACUTE ABDOMEN INC CHEST 09/18/2024 REASON FOR EXAM: PAIN, BLOATING TECHNIQUE: Single view chest with supine and upright views of the abdomen. COMPARISON: None. FINDINGS: There are numerous calcified mediastinal and hilar lymph nodes bilaterally. There are multiple benign calcified granulomas in both lungs. There is no lobar consolidation or pleural effusion. The heart size is normal. Status post right partial mastectomy. There is a nonobstructive bowel gas pattern. There is stool in the rectal vault. There are no abnormal soft tissue calcifications. There is a left total hip arthroplasty. 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 RAD/Acute Abdomen Inc Chest IMPRESSION: 1. No evidence of acute cardiopulmonary or acute abdominal pathology. 2. Other findings as noted. Reading Location: [id number]
[2024-09-18 13:42] LABS: Bacteria 0 SEEN /hpf (None Seen); Mucous, Urine 0 SEEN /hpf (<or=2+); Red Blood Cells-Urine 0 SEEN /hpf (0-5)
[2024-09-18 15:01] LABS: Color, Urine Yellow (Yellow); Glucose, Dipstick Normal (Normal); Ketone-Dipstick Negative (Negative); Leukocyte Esterase-Dipstick 500 /ul (Negative); Nitrite-Dipstick Negative (Negative); Occult Blood-Urine 250 /ul (Negative); Protein-Dipstick Negative (Negative); Urine Bilirubin Dipstick Negative (Negative); Urine Clarity Clear (Clear); Urine Urobilinogen Normal (Normal)
[2024-09-18 15:03] LABS: Absolute Lymphocyte Count 1.31 X10^3/uL (0.83-4.51); Absolute Neutrophil Count 2.5 X10^3/uL (2.0-7.7); Basophil# 0.05 X10^3/uL; Basophil% 1.1 % (0-1); Eosinophil# 0.17 X10^3/uL; Eosinophils% 3.7 % (0-5); Hematocrit 38.7 % (37-47); Hemoglobin 13.2 g/dL (12.0-15.0); Lymphocyte # 1.31 X10^3/ul (0.83-4.51); Lymphocyte % 28.9 % (19-41); Mean Corp Hgb Conc 34.1 g/dL (32-36); Mean Corpuscular Hgb 34.4 pg (27.0-32.0); Mean Corpuscular Volume 100.8 fL (81-99); Mean Platelet Vol. 9.9 fl (6.2-12.0); Monocyte# 0.48 X10^3/uL; Monocyte% 10.6 % (0-10); NRBC Flagged by Analyzer 0 % (0-5); Neutrophil # 2.52 X10^3/uL (2.7-7.7); Neutrophil % 55.5 % (47-70); Platelet Count 168 K/mm3 (150-450); RBC Distribution Width CV 12.1 % (11.6-14.6); RBC Distribution Width SD 45.1 fl (35.1-43.9); Red Blood Count 3.84 M/mm3 (4.2-5.4); White Blood Count 4.5 K/mm3 (4.4-11.0)
[2024-09-18 15:07] LABS: Squamous Epithelial Cells - UA 5-10 SEEN /hpf (5-10); White Blood Cells 5-10 SEEN /hpf (0-5)
[2024-09-18 15:38] LABS: ALB/GLOB Ratio 1.7 RATIO (0.9-2.4); AST(SGOT) 58 U/L (<=31); Alanine Aminotransfer ALT/SGPT 54 U/L (<=34); Alkaline Phosphatase 213 U/L (35-104); Anion Gap 11 (5-15); BUN 8 mg/dL (4-19); BUN/Creat Ratio 11.3 RATIO (10-20); Calcium,Total 10.2 mg/dL (7.6-11.0); Carbon Dioxide 28.2 mmol/L (21.0-32.0); Chloride 101 mmol/L (98-108); Creatinine, Serum 0.73 mg/dL (0.70-1.20); EST Glomerular Filtration Rate 81 (>60); Globulin 2.4 g/dL (2.2-4.2); Glucose 116 mg/dL (70-99); LDH 183 U/L (84-246); Magnesium 1.9 mg/dL (1.5-2.2); Phosphorus 3.5 mg/dL (2.7-4.5); Potassium 4.1 mmol/L (3.3-5.1); Protein, Total 6.5 g/dL (5.9-8.4); Sodium Level 140 mmol/L (133-145); Total Bilirubin 0.26 mg/dL (0.00-1.30)
[2024-09-18 16:33] LABS: Hemoglobin A1c 5.4 % (<=5.6)
[2024-09-18 17:08] LABS: Lipase 26 U/L (13-75)
== END | disposition home or self-care (01) ==
LOC: MTLAB 13:35
PROVIDERS: Internal Medicine Medical Oncology; PCP Family Medicine; Referring Provider Family Medicine; Visit Provider Family Medicine
DX: C50.211 Malignant neoplasm of upper-inner quadrant of right female breast (principal); R10.9 Unspecified abdominal pain; R73.09 Other abnormal glucose; Z17.0 Estrogen receptor positive status [ER+]
CPT/HCPCS: 36415; 74022; 80053; 81001; 83036; 83615; 83690; 83735; 84100; 85025

== ENCOUNTER → 2024-09-23 | Outpatient (CLI) | payer MEDICARE, SELFPAY ==
--- NOTE | 2024-09-23 10:15 | BI_ITS ---
EXAM: SCRN MAMM (CAD)W/MARCO BILAT 09/23/2024 CLINICAL HISTORY: F, Age 84 y/o , TREATED BREAST CANCER TECHNIQUE: Bilateral screening digital breast tomosynthesis with 2D and 3D images. Computer aided detection. COMPARISON: Prior exam(s) dated 09/23/2023, 09/21/2022. FINDINGS: TISSUE DENSITY: The breast tissue is composed of scattered area of fibroglandular density. Bilateral Breast Mammographic Findings: No significant masses, calcifications or other abnormalities are identified. BI/SCRN MAMM (CAD)W/MARCO BILAT IMPRESSION: Right Breast: BIRADS 1 NEGATIVE. Left Breast: BIRADS 1 NEGATIVE. OVERALL FINAL ASSESSMENT: BIRADS 1 NEGATIVE. RECOMMENDATION: Routine annual follow-up in 1 Year A letter with findings and recommendations will be mailed to the patient. Reading Location: [id number]
--- OUTSIDE RECORDS SUMMARY | 2024-09-23 20:13 | XMS RPT_ITS | CCD ---
Author Organization [facility] Care Team Providers Care Drying And Winding Supervisor Name Role Phone Edwin PLUMMER, Rosanne Arciniega Unavailable Rashida MALIN, Marcy Wilder Unavailable [phone] Edwin PLUMMER, Rosanne Arciniega Unavailable Dr. Breonna Dooley Primary Care Provider Dr. Breonna Dooley Referring Provider Dr. Marlon Lockhart Attending Provider Dr. Marlon Lockhart Referring Provider Dr. Marlon Lockhart Other Provider Dr. Laron Newman Attending Provider Joao PLUMMER, GERIATRIC NURSING ASSISTANT-Dequan Hernandes Attending Provider Dr. Willi Calderon Attending Provider Dr. Willi Calderon Referring Provider Dr. Breonna Dooley Primary Care Provider Dr. Breonna Dooley Referring Provider Dr. Wilmer Miles Attending Provider Dr. Willi Calderon Attending Provider Dr. Breonna Dooley MD Primary Care Provider Dr. Breonna Dooley MD Referring Provider Dr. Willi Calderon DO Attending Provider Dr. Laron Newman MD Attending Provider Paty MALIN, Dr. Larry Referring Provider Dr. Willi Calderon DO Other Provider Juan MALIN, Dr. Chambers Attending Provider [phone] Juan MALIN, Dr. Chambers Referring Provider [phone] Jolliff, Breonna S Primary Care Unavailable Reyes Martinez Attending Unavailable Reyes Martinez Referring Unavailable Jolliff, Breonna S Primary Care Unavailable PrahWilmer Attending Unavailable PrahWilmer Referring Unavailable Jolliff, Breonna S Primary Care Unavailable Jimmy Tiwari Attending Unavailable Karie, Jimmy Wilder Referring Unavailable Jolliff, Breonna S Referring Unavailable Jolliff, Breonna S Primary Care Unavailable Willi Calderon Attending Unavailable Paty, Laron Attending Unavailable Paty, Laron Referring Unavailable Jolliff, Breonna S Primary Care Unavailable Willi Calderon Consulting Unavailable Willi Calderon Attending Unavailable Jolliff, Breonna S Primary Care Unavailable Jolliff, Breonna S Referring Unavailable Prah, Wilmer Attending Unavailable Jolliff, Breonna S Primary Care Unavailable YumikoWilli pierre Attending Unavailable Willi Calderon Referring Unavailable Jolliff, Breonna S Primary Care Unavailable Soumya MALIN, Dr. Breonna Arciniega Primary Care Provider Karie MALIN, Dr. Jimmy Wilder Attending Provider [phone] Karie MALIN, Dr. Jimmy Wilder Referring Provider [phone] Medications Current Medications Medication Drug Class(es) Dates Sig (Normalized) Sig (Original) acetaminophen 500 mg oral tablet (3 sources) Start: 08-01-2016 take 1000 mg by mouth every eight hours Acetaminophen Active 1000 MG PO EVERY 8 HOURS 90 August 01, 2016 12:57pm Calcium Vxdu-[id number]-Wctwhs No.293 (Alive Calcium-Vitamin D3) 260 mg calcium- 25 mcg-50 mg tablet,chewable (6 sources) Start: 12-06-2021 Calcium Wklp-K2-Xgfwog No.293 (Alive Calcium-Vitamin D3) 260 mg calcium- 25 mcg-50 mg tablet,chewable Active {tbl} PO December 06, 2021 12:00am Start: 12-06-2021 Calcium Phos-D 3-Herbal No.293 (Alive Calcium-Vitamin D3) 260 mg calcium- 25 mcg-50 mg tablet,chewable Active TABLET PO December 06, 2021 12:00am meloxicam 15 mg oral tablet (7 sources) Nonsteroidal Anti-inflammatory Drug Start: 10-03-2021 take 1 tablet by mouth once daily Meloxicam 15 mg Tablet Active 15 mg PO DAILY October 03, 2021 12:00am levothyroxine sodium 0.088 mg oral capsule (16 sources) l-Thyroxine Start: 09-25-2021 take 1 capsule by mouth once daily Levothyroxine 88 mcg capsule Active 88 ug PO DAILY September 25, 2021 12:00am Start: 12-28-2016 LEVOTHYROXINE SODIUM 75 MCG TABS LEVOTHYROXINE SODIUM [id number] Marcy Field MD traMADol hydrochloride 50 mg oral tablet (3 sources) Opioid Agonist Start: 08-01-2016 take 50-100 mg by mouth every six hours as needed Tramadol Active 50 - 100 MG PO EVERY 6 HOURS NEEDED August 01, 2016 12:57pm Completed/Discontinued Medications Medication Drug Class(es) Dates Sig (Normalized) Sig (Original) acetaminophen 325 mg / oxyCODONE hydrochloride 5 mg oral tablet (7 sources) Opioid Agonist Start: 10-10-2021 End: 10-24-2021 Oxycodone-Acetaminop hen (Percocet) 5-325 mg tablet Discontinued 1 {tbl} PO Q4H as needed for pain 20 5 October 10, 2021 October 24, 2021 9:17am anastrozole 1 mg oral tablet (16 sources) Aromatase Inhibitor Start: 11-02-2021 End: 01-30-2024 Anastrozole 1 mg tablet Discontinued 0 .ROUTE .COMPLEX December 25, 2022 8:26am January 30, 2024 5:45pm TAKE 1 TABLET EVERY DAY aspirin 325 mg oral tablet (10 sources) Platelet Aggregation Inhibitor, Nonsteroidal Anti-inflammatory Drug Start: 08-01-2016 End: 09-25-2021 take 1 tablet by mouth twice daily at mealtime Aspirin 325 MG tablet Discontinued 325 mg PO TWICE DAILY WITH MEALS 60 August 01, 2016 12:00am September 25, 2021 10:14am cholecalciferol 1000 unt oral capsule (17 sources) Vitamin D Start: 12-28-2016 VITAMIN D3 1000 UNIT CAPS CHOLECALCIFEROL [id number] Marcy Field MD Start: 07-19-2016 take 1 capsule by mo [facility] once daily Cholecalciferol (Vitamin D3) (Vitamin D3) 1,000 UNIT capsule Active 1000 U PO DAILY July 19, 2016 12:00am cyclobenzaprine hydrochloride 10 mg oral tablet (7 sources) Muscle Relaxant Start: 10-03-2021 End: 11-02-2021 take 1 tablet by mouth at bedtime Cyclobenzaprine 10 mg Tablet Discontinued 10 mg PO AT BEDTIME October 03, 2021 12:00am November 02, 2021 10:32am folic acid 0.8 mg oral tablet (17 sources) Start: 12-28-2016 FOLIC ACID 800 MCG TABS FOLIC ACID [id number] Marcy Field MD Start: 07-19-2016 take 1 tablet by [facility] once daily Folic Acid 1 MG tablet Active 1 mg PO DAILY@0800 July 19, 2016 12:00am metroNIDAZOLE 500 mg oral tablet (4 sources) Nitroimidazole Antimicrobial Start: 12-31-2016 End: 01-07-2017 take 1 tablet by mouth twice daily METRONIDAZOLE 500 MG TABS One tablet by mouth twice daily METRONIDAZOLE [id number] Rosanne Pineda GERIATRIC NURSING ASSISTANT PARoxetine hydrochloride 10 mg oral tablet (7 sources) Serotonin Reuptake Inhibitor Start: 12-28-2016 PAROXETINE HCL 10 MG TABS PAROXETINE HCL [id number] Marcy Field MD Problems Active Problems Problem Classification Problem Date Documented Date Episodic/Chronic Abdominal pain (1 source) Unspecified abdominal pain; Translations: [Unspecified abdominal pain] Onset: 09-18-2024 Episodic Administrative/social admission (8 sources) Patient encounter status; Translations: [Counseling, unspecified] Episodic Cancer of breast (20 sources) Malignant tumor of breast ; Translations: [Malignant neoplasm of unspecified site of right female breast] Onset: 04-01-2024 Chronic Comment on above: 83-year-old female w ith 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 She has a strong positive family history of breast cancer (sister, niece from same sister) history of abdominal cancer possibly ovarian (another sister).[employer] panel of 10 genes (KASANDRA, BARD1, BRCA1, BRCA2, CDH1, CHEK2, PALB2, PTEN, STK11, TP53): No known pathogenic or likely pathogenic variants were detectedOn Anastrozole. Tolerating therapy. Labs reviewed and within normal limits.No evidence of disease. Nonmalignant breast conditions (6 sources) Breast lump; Translations: [Unspecified lump in the right breast, unspecified quadrant] Episodic Nutritional deficiencies (1 source) Vitamin D deficiency, unspecified; Translations: [Vitamin D deficiency, unspecified] Onset: 04-03-2024 Chronic Osteoarthritis (5 sources) Arthritis; Translations: [Unspecified osteoarthritis, unspecified site] Chronic Other aftercare (6 sources) Prophylactic aromatase inhibitors given; Translations: [buttermaker (current) use of aromatase inhibitors] 11-02-2021 Episodic Other bone disease and musculoskeletal deformities (7 sources) Osteopenia; Translations: [Other specified disorders of bone density and structure, unspecified site] 11-02-2021 Episodic Comment on above: on Reclast every 2 y rs since March 2023. Other connective tissue disease (6 sources) History of osteopenia; Translations: [Personal history of other diseases of the musculoskeletal system and connective tissue] 11-02-2021 Episodic Other connective tissue disease (1 source) Impingement syndrome of left shoulder; Translations: [Impingement syndrome of left shoulder] Onset: 07-13-2024 Episodic Other lower respiratory disease (5 sources) Dyspnea; Translations: [Shortness of breath] Episodic Other lower respiratory disease (5 sources) Cough; Translations: [Cough] Episodic Other nutritional; endocrine; and metabolic disorders (3 sources) Weight loss; Translations: [Abnormal weight loss] Episodic Other screening for suspected conditions (not mental disorders or infectious disease) (2 sources) Encounter for screening mammogram for malignant neoplasm of breast; Translations: [Encounter for screening mammogram for malignant neoplasm of breast] Onset: 10-04-2023 Episodic Residual codes; unclassified (6 sources) Estrogen receptor positive tumor; Translations: [Estrogen receptor positive status [ER+]] 11-02-2021 Episodic Rheumatoid arthritis and related disease (9 sources) Rheumatoid arthritis; Translations: [Rheumatoid arthritis, unspecified] 09-25-2021 Chronic Thyroid disorders (9 sources) Hypothyroidism; Translations: [Hypothyroidism, unspecified] 09-25-2021 Chronic Past or Other Problems Problem Classification Problem Date Documented Da te Episodic/Chronic Cancer of breast (1 source) Personal history of malignant neoplasm of breast; Translations: [Personal history of malignant neoplasm of breast] Onset: 04-03-2024 Episodic Inflammatory diseases of female pelvic organs (7 sources) Vaginitis and vulvovaginitis; Translations: [Acute vaginitis] Onset: 12-28-2016 12-28-2016 Episodic Other bone disease and musculoskeletal deformities (4 sources) Other specified disorders of bone density and structure, unspecified site; Translations: [Disorder of bone and cartilage, unspecified] Onset: 04-01-2024 Episodic Residual codes; unclassified (1 source) Estrogen receptor positive status [ER+]; Translations: [Estrogen receptor positive status [ER+]] Onset: 04-01-2024 Episodic Results Test Name Value Interpretation Reference Range Facility Absolute lymphocyte countOrd ered By: Wilmer Miles on 09-18-2024 Lymphocytes Auto (Unsp spec) [#/Vol] 1.31 10*3/uL 0.83-4.51 [facility] Absolute neutrophil countOrd ered By: Wilmer Miles on 09-18-2024 Neutrophils (Bld) [#/Vol] 2.5 10*3/uL 2.0-7.7 [facility] Acute Abdomen Inc Cheston Acute Abdomen Inc Chest [facility] Services [address] [place] [id number] Acute [facility]domen Inc Chest MR#: [id number] Acct: [id number] Name: LENA GOODMAN Rep #: [id number] : 1940 F 84 From: Lino Jauregui MD PCP: Dr. Breonna Dooley MD Status: [facility] CLI Study: Acute Abdomen Inc Chest Date of Exam: 09/18/24 Exam# [id number] Ordering Dr: Jimmy Tiwari MD PROCEDURE: ACUTE ABDOMEN INC CHEST 09/18/2024 REASON FOR EXAM: PAIN, BLOATING TECHNIQUE: Single view chest with supine and upright views of the abdomen. COMPARISON: None. FINDINGS: There are numerous calcified mediastinal and hilar lymph nodes bilaterally. There are multiple benign calcified granulomas in both lungs. There is no lobar consolidation or pleural effusion. The heart size is normal. Status post right partial mastectomy. There is a nonobstructive bowel gas pattern. There is stool in the rectal vault. There are no abnormal soft tissue calcifications. There is a left total hip arthroplasty. 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 RAD/Acute Abdomen Inc Chest IMPRESSION: 1. No evidence of acute cardiopulmonary or acute abdominal pathology. 2. Other findings as noted. Reading Location: [id number] CC: Dr. Breonna Dooley MD; Dr. Jimmy Tiwari MD Application Security Developer: Signed Normal [facility] Anion gap in Serum or Plasma Ordered By: Wilmer Miles on 09-18-2024 Anion gap [Moles/Vol] 11 mmol/L 5-15 [facility] Automated lymphocyte count a s percentage of total leukocytesOrdered By: Wilmer Miles on 09-18-2024 Lymphocytes/100 WBC Auto (Unsp spec) 28.9 % 19-41 [facility] BUN/creatinine ratioOrdered By: Wilmer Miles on 09-18-2024 Urea nitrogen/Creatinine [Mass ratio] 11.3 mg/mg 10-20 [facility] Basophil percentageOrdered B y: Wilmer Miles on 09-18-2024 Basophils/100 WBC (Bld) 1.1 % High 0-1 [facility] Bilirubin Test strip Ql (U)O rdered By: Jimmy Tiwari on 09-18-2024 Bilirubin Ql (U) Negative Negative [facility] Bilirubin, totalOrdered By: Wilmer Miles on 09-18-2024 Bilirubin [Mass/Vol] 0.26 mg/dL 0.00-1.30 [facility] CBC W/Diff, Automatedon Absolute Lymph 1.31 X10 3/uL Normal 0.83-4.51 [facility] Comment on above: Performed By: #### L 100.0100, L501.2300, L501.5200, L500.4050, L504.2610 #### [facility] Laboratory [address] [place], [address] Absolute Neut 2.5 X10 3/uL Normal 2.0-7.7 [facility] Comment on above: Performed By: #### L 100.0100, L501.2300, L501.5200, L500.4050, L504.2610 #### [facility] [address] [place], [address] Basophils/100 WBC (Bld) 1.1 % High 0-1 [facility] Comment on above: Performed By: #### L 100.0100, L501.2300, L501.5200, L500.4050, L504.2610 #### [facility] [address] [place], [address] Eosinophils/100 WBC (Bld) 3.7 % Normal 0-5 [facility] Comment on above: Performed By: #### L 100.0100, L501.2300, L501.5200, L500.4050, L504.2610 #### [facility] [address] [place], [address] Erythrocyte distribution width (RBC) [Ratio] 12.1 % Normal 11.6-14.6 [facility] Comment on above: Performed By: #### L 100.0100, L501.2300, L501.5200, L500.4050, L504.2610 #### [facility] [address] [place], [address] Hematocrit (Bld) [Volume fraction] 38.7 % Normal 37-47 [facility] Comment on above: Performed By: #### L 100.0100, L501.2300, L501.5200, L500.4050, L504.2610 #### [facility] [address] [place], [address] Hemoglobin (Bld) [Mass/Vol] 13.2 g/dL Normal 12.0-15.0 [facility] Comment on above: Performed By: #### L 100.0100, L501.2300, L501.5200, L500.4050, L504.2610 #### [facility] [address] [place], [address] IG% 0.200 Normal 0.0-0.9 [facility] Comment on above: Result Comment: IG% - Immature Granulocytes (promyelocytes, myelocytes and metamyelocytes) > 1% indicates that a LEFT SHIFT is Present. Performed By: #### L 100.0100, L501.2300, L501.5200, L500.4050, L504.2610 #### [facility] [address] [place], [address] Lymphocytes/100 WBC (Bld) 28.9 % Normal 19-41 [facility] Comment on above: Performed By: #### L 100.0100, L501.2300, L501.5200, L500.4050, L504.2610 #### [facility] [address] [place], [address] MCH (RBC) [Entitic mass] 34.4 pg High 27.0-32.0 [facility] Comment on above: Performed By: #### L 100.0100, L501.2300, L501.5200, L500.4050, L504.2610 #### [facility] [address] [place], [address] MCHC (RBC) [Mass/Vol] 34.1 g/dL Normal 32-36 [facility] Comment on above: Performed By: #### L 100.0100, L501.2300, L501.5200, L500.4050, L504.2610 #### [facility] [address] [place], [address] MCV (RBC) [Entitic vol] 100.8 fL High 81-99 [facility] Comment on above: Performed By: #### L 100.0100, L501.2300, L501.5200, L500.4050, L504.2610 #### [facility] [address] [place], [address] Monocytes/100 WBC (Bld) 10.6 % High 0-10 [facility] Comment on above: Performed By: #### L 100.0100, L501.2300, L501.5200, L500.4050, L504.2610 #### [facility] [address] [place], [address] Neutrophils/100 WBC (Bld) 55.5 % Normal 47-70 [facility] Comment on above: Performed By: #### L 100.0100, L501.2300, L501.5200, L500.4050, L504.2610 #### [facility] [address] [place], [address] Nucleated RBC (Bld) [#/Vol] 0 10*3/uL Normal 0-5 [facility] Comment on above: Performed By: #### L 100.0100, L501.2300, L501.5200, L500.4050, L504.2610 #### [facility] [address] [place], [address] Platelet mean volume (Bld) [Entitic vol] 9.9 fL Normal 6.2-12.0 [facility] Comment on above: Performed By: #### L 100.0100, L501.2300, L501.5200, L500.4050, L504.2610 #### [facility] [address] [place], [address] Platelets (Bld) [#/Vol] 168 10*3/uL Normal 150-450 [facility] Comment on above: Performed By: #### L 100.0100, L501.2300, L501.5200, L500.4050, L504.2610 #### [facility] [address] [place], [address] RBC (Bld) [#/Vol] 3.84 10*6/uL Low 4.2-5.4 [facility] Comment on above: Performed By: #### L 100.0100, L501.2300, L501.5200, L500.4050, L504.2610 #### [facility] [address] [place], [address] RDW SD 45.1 fl High 35.1-43.9 [facility] Comment on above: Performed By: #### L 100.0100, L501.2300, L501.5200, L500.4050, L504.2610 #### [facility] [address] [place], [address] WBC (Bld) [#/Vol] 4.5 10*3/uL Normal 4.4-11.0 [facility] Comment on above: Performed By: #### L 100.0100, L501.2300, L501.5200, L500.4050, L504.2610 #### [facility] [address] [place], [address] Carbon dioxide, total [Moles /volume] in Central venous bloodOrdered By: Wilmer Miles on 09-18-2024 CO2 [Moles/Vol] 28.2 mmol/L 21.0-32.0 [facility] Chloride assayOrdered By: Fabiola Miles on 09-18-2024 Chloride [Moles/Vol] 101 mmol/L 98-108 [facility] Comprehensive Metabolic Prof ilon 09-18-2024 Albumin [Mass/Vol] 4.0 g/dL Normal 3.4-4.8 [facility] Comment on above: Performed By: #### L 100.0100, L501.2300, L501.5200, L500.4050, L504.2610 #### [facility] [address] [place], [address] Albumin/Globulin [Mass ratio] 1.7 {ratio} Normal 0.9-2.4 [facility] Comment on above: Performed By: #### L 100.0100, L501.2300, L501.5200, L500.4050, L504.2610 #### [facility] [address] [place], [address] ALK PHOS 213 U/L High 35-104 [facility] Comment on above: Performed By: #### L 100.0100, L501.2300, L501.5200, L500.4050, L504.2610 #### [facility] [address] [place], [address] ALT [Catalytic activity/Vol] 54 U/L High <=34 [facility] Comment on above: Performed By: #### L 100.0100, L501.2300, L501.5200, L500.4050, L504.2610 #### [facility] [address] [place], [address] AST [Catalytic activity/Vol] 58 U/L High <=31 [facility] Comment on above: Performed By: #### L 100.0100, L501.2300, L501.5200, L500.4050, L504.2610 #### [facility] [address] [place], [address] Bilirubin [Mass/Vol] 0.26 mg/dL Normal 0.00-1.30 [facility] Comment on above: Performed By: #### L 100.0100, L501.2300, L501.5200, L500.4050, L504.2610 #### [facility] [address] [place], [address] BUN/CRE 11.3 RATIO Normal 10-20 [facility] Comment on above: Performed By: #### L 100.0100, L501.2300, L501.5200, L500.4050, L504.2610 #### [facility] [address] [place], [address] Calcium [Mass/Vol] 10.2 mg/dL Normal 7.6-11.0 [facility] Comment on above: Performed By: #### L 100.0100, L501.2300, L501.5200, L500.4050, L504.2610 #### [facility] [address] [place], [address] Chloride [Moles/Vol] 101 mmol/L Normal 98-108 [facility] Comment on above: Performed By: #### L 100.0100, L501.2300, L501.5200, L500.4050, L504.2610 #### [facility] [address] [place], [address] CO2 [Moles/Vol] 28.2 mmol/L Normal 21.0-32.0 [facility] Comment on above: Performed By: #### L 100.0100, L501.2300, L501.5200, L500.4050, L504.2610 #### [facility] [address] [place], [address] Creatinine [Mass/Vol] 0.73 mg/dL Normal 0.70-1.20 [facility] Comment on above: Performed By: #### L 100.0100, L501.2300, L501.5200, L500.4050, L504.2610 #### [facility] [address] [place], [address] GAP 11 Normal 5-15 [facility] Comment on above: Performed By: #### L 100.0100, L501.2300, L501.5200, L500.4050, L504.2610 #### [facility] [address] [place], [address] GFR/1.73 sq M.predicted among non-blacks MDRD (S/P/Bld) [Vol rate/Area] 81 mL/min/{1.73_m2} Normal >60 [facility] Comment on above: Result Comment: mL/m in/1.73m2 CKD-EPI Creatinine Equation (2020) Performed By: #### L 100.0100, L501.2300, L501.5200, L500.4050, L504.2610 #### [facility] [address] [place], [address] Globulin (S) [Mass/Vol] 2.4 g/dL Normal 2.2-4.2 [facility] Comment on above: Performed By: #### L 100.0100, L501.2300, L501.5200, L500.4050, L504.2610 #### [facility] [address] [place], [address] Glucose [Mass/Vol] 116 mg/dL High 70-99 [facility] Comment on above: Performed By: #### L 100.0100, L501.2300, L501.5200, L500.4050, L504.2610 #### [facility] [address] [place], [address] Potassium [Moles/Vol] 4.1 mmol/L Normal 3.3-5.1 [facility] Comment on above: Performed By: #### L 100.0100, L501.2300, L501.5200, L500.4050, L504.2610 #### [facility] [address] [place], [address] Sodium [Moles/Vol] 140 mmol/L Normal 133-145 [facility] Comment on above: Performed By: #### L 100.0100, L501.2300, L501.5200, L500.4050, L504.2610 #### [facility] [address] [place], [address] T PROT 6.5 g/dL Normal 5.9-8.4 [facility] Comment on above: Performed By: #### L 100.0100, L501.2300, L501.5200, L500.4050, L504.2610 #### [facility] [address] [place], [address] Urea nitrogen [Mass/Vol] 8 mg/dL Normal 4-19 [facility] Comment on above: Performed By: #### L 100.0100, L501.2300, L501.5200, L500.4050, L504.2610 #### [facility] Laboratory [address] [place], [address] Eosinophil percentageOrdered By: Wilmer Miles on 09-18-2024 Eosinophils/100 WBC (Bld) 3.7 % 0-5 [facility] Erythrocyte distribution wid th ratioOrdered By: Wilmer Miles on 09-18-2024 Erythrocyte distribution width (RBC) [Ratio] 12.1 % 11.6-14.6 [facility] Erythrocyte distribution wid th standard deviationOrdered By: Wilmer Miles on 09-18-2024 Erythrocyte distribution width (RBC) [Ratio] 45.1 fl High 35.1-43.9 [facility] Glomerular filtration rate ( GFR) estimation/1.73 sq m using serum, plasma, or whole bOrdered By: Wilmer Miles on 09-18-2024 GFR/1.73 sq M.predicted among non-blacks MDRD (S/P/Bld) [Vol rate/Area] 81 mL/min/{1.73_m2} >60 [facility] Comment on above: mL/min/1.73m2 CKD-EP I Creatinine Equation (2020) Hematocrit Auto (Bld) [Volum e fraction]Ordered By: Wilmer Miles on 09-18-2024 Hematocrit (Bld) [Volume fraction] 38.7 % 37-47 [facility] Hemoglobin A1con 09-18-2024 HbA1c (Bld) [Mass fraction] 5.4 % Normal <=5.6 [facility] Comment on above: Order Comment: Order Date: 09/18/24Order Info: [id number] - A1C Result Comment: Norm al < 5.7 % Prediabetic 5.7 - 6.4 % Diabetic >or= 6.5 % Please note range changes. Performed By: #### L 501.2450, L501.9985 ####[facility] [address] [place], [place], [phone] Hemoglobin A1c percentageOrd ered By: Jimmy Tiwari on 09-18-2024 HbA1c (Bld) [Mass fraction] 5.4 % <5.7 [facility] Comment on above: Normal < 5.7 % Predi abetic 5.7 - 6.4 % Diabetic >or= 6.5 % Please note range changes. Hemoglobin measurementOrdere d By: Wilmer Miles on 09-18-2024 Hemoglobin (Bld) [Mass/Vol] 13.2 g/dL 12.0-15.0 [facility] Immature granulocytes/100 WB C Auto (Bld)Ordered By: Wilmer Miles on 09-18-2024 Immature granulocytes/100 WBC (Bld) 0.200 % 0.0-0.9 [facility] Comment on above: IG% - Immature Granu locytes (promyelocytes, myelocytes and metamyelocytes) > 1% indicates that a LEFT SHIFT is Present. Ketones Test strip Ql (U)Ord ered By: Jimmy Tiwari on 09-18-2024 Ketones Ql (U) Negative Negative [facility] LDHon 09-18-2024 LDH 183 U/L Normal 84-246 [facility] Comment on above: Order Comment: 1 Performed By: #### L 100.0100, L501.2300, L501.5200, L500.4050, L504.2610 ####[facility] [address] [place], [place], [address] Laboratory - Chemistry and C hemistry - challengeOrdered By: Wilmer Miles on 09-18-2024 AST [Catalytic activity/Vol] 58 U/L High <32 [facility] Lactate dehydrogenase (LDH) measurementOrdered By: Wilmer Miles on 09-18-2024 LDH [Catalytic activity/Vol] 183 U/L 84-246 [facility] Lipaseon 09-18-2024 Lipase [Catalytic activity/Vol] 26 U/L Normal 13-75 [facility] Comment on above: Order Comment: Order Date: 09/18/24Order Info: [id number] - LIPASE Result Comment: Duncan sarmiento note: LIPASE revised reference range effective 22. New Lipase methodology. Expected to produce lower values than the previous assay method. NEW Reference Range: 13 - 75 U/L Performed By: #### L 501.2450, L501.9985 ####[facility] [address] [place], [place], [phone] Lipase measurementOrdered By : Jimmy Tiwari on 09-18-2024 Lipase [Catalytic activity/Vol] 26 U/L 13-75 [facility] Comment on above: Please note:LIPASE r evised reference range effective 22. New Lipase methodology. Expected to produce lower values than the previous assay method. NEW Reference Range: 13 - 75 U/L MCV (mean corpuscular volume ) determinationOrdered By: Wilmer Miles on 09-18-2024 MCV (RBC) [Entitic vol] 100.8 fL High 81-99 [facility] Magnesiumon 09-18-2024 Magnesium [Mass/Vol] 1.9 mg/dL Normal 1.5-2.2 [facility] Comment on above: Performed By: #### L 100.0100, L501.2300, L501.5200, L500.4050, L504.2610 #### [facility] Laboratory [address] [place], [place], [id number] Magnesium measurement (mass/ volume)Ordered By: Wilmer Miles on 09-18-2024 Magnesium (Unsp spec) [Mass/Vol] 1.9 mg/dL 1.5-2.2 [facility] Mean corpuscular hemoglobin (MCH) determinationOrdered By: Wilmer Miles on 09-18-2024 MCH (RBC) [Entitic mass] 34.4 pg High 27.0-32.0 [facility] Mean corpuscular hemoglobin concentration (MCHC) determinationOrdered By: Wilmer Miles on 09-18-2024 MCHC (RBC) [Mass/Vol] 34.1 g/dL 32-36 [facility] Mean platelet volume determi nationOrdered By: Wilmer Miles on 09-18-2024 Platelet mean volume (Bld) [Entitic vol] 9.9 fL 6.2-12.0 [facility] Microscopic analysis of urin e for red blood cells (RBC)Ordered By: Jimmy Tiwari on 09-18-2024 Microscopic analysis of urine for red blood cells (RBC) 0 SEEN /hpf 0- [facility] Monocyte percentageOrdered B y: Wilmer Miles on 09-18-2024 Monocytes/100 WBC (Bld) 10.6 % High 0-10 [facility] Mucus LM Ql (Urine sed)Order ed By: Jimmy Tiwari on 09-18-2024 Mucus Ql (Urine sed) 0 SEEN /hpf [facility] Neutrophil percentageOrdered By: Wilmer Miles on 09-18-2024 Neutrophils/100 WBC (Bld) 55.5 % 47-70 [facility] Nitrite Test strip Ql (U)Ord ered By: Jimmy Tiwari on 09-18-2024 Nitrite Ql (U) Negative Negative [facility] Nucleated red blood cell per centageOrdered By: Wilmer Miles on 09-18-2024 Nucleated RBC/100 WBC (Bld) [Ratio] 0 % 0-5 [facility] Phosphoruson 09-18-2024 Phosphate [Mass/Vol] 3.5 mg/dL Normal 2.7-4.5 [facility] Comment on above: Performed By: #### L 100.0100, L501.2300, L501.5200, L500.4050, L504.2610 #### [facility] [place], [address] Platelet countOrdered By: Fabiola Miles on 09-18-2024 Platelets (Bld) [#/Vol] 168 10*3/uL 150-450 [facility] Potassium measurement (mass/ volume)Ordered By: Wilmer Miles on 09-18-2024 Potassium (Unsp spec) [Mass/Vol] 4.1 mmol/L 3.3-5.1 [facility] Protein Test strip Ql (U)Ord ered By: Jimmy Tiwari on 09-18-2024 Protein Ql (U) Negative Negative [facility] RBC Auto (Bld) [#/Vol]Ordere d By: Wilmer Miles on 09-18-2024 RBC (Bld) [#/Vol] 3.84 10*6/uL Low 4.2-5.4 [facility] Serum creatinine measurement (mass/volume)Ordered By: Wilmer Miles on 09-18-2024 Creatinine [Mass/Vol] 0.73 mg/dL 0.70-1.20 [facility] Serum globulin measurementOr dered By: Wilmer Miles on 09-18-2024 Globulin (S) [Mass/Vol] 2.4 g/dL 2.2-4.2 [facility] Serum glucose measurement (m ass/volume)Ordered By: Wilmer Miles on 09-18-2024 Glucose [Mass/Vol] 116 mg/dL High 70-99 [facility] Serum or plasma alanine moreno otransferase (ALT) measurementOrdered By: Wilmer Miles on 09-18-2024 ALT [Catalytic activity/Vol] 54 U/L High <35 [facility] Serum or plasma albumin gil urement (mass/volume)Ordered By: Wilmer Miles on 09-18-2024 Albumin [Mass/Vol] 4.0 g/dL 3.4-4.8 [facility] Serum or plasma albumin/glob ulin mass ratioOrdered By: Wilmer Miles on 09-18-2024 Albumin/Globulin [Mass ratio] 1.7 {ratio} 0.9-2.4 [facility] Serum or plasma alkaline rena sphatase measurementOrdered By: Wilmer Miles on 09-18-2024 ALP [Catalytic activity/Vol] 213 U/L High 35-104 [facility] Serum or plasma calcium gil urement (mass/volume)Ordered By: Wilmer Miles on 09-18-2024 Calcium [Mass/Vol] 10.2 mg/dL 7.6-11.0 [facility] Serum or plasma urea nitroge n measurement (mass/volume)Ordered By: Wilmer Miles on 09-18-2024 Urea nitrogen [Mass/Vol] 8 mg/dL 4-19 [facility] Sodium levelOrdered By: Laureano Miles on 09-18-2024 Sodium [Moles/Vol] 140 mmol/L 133-145 [facility] Squamous epithelial cells de tection in urine sediment by light microscopyOrdered By: Jimmy Tiwari on 09-18-2024 Epithelial cells.squamous LM Ql (Urine sed) 5-10 SEEN /hpf -10 [facility] Total proteinOrdered By: Clavin Miles on 09-18-2024 Protein [Mass/Vol] 6.5 g/dL 5.9-8.4 [facility] Urinalysis, Completeon 09-18 EPI,SQUAMOUS 5-10 SEEN Normal 5-10 [facility] Comment on above: Order Comment: Urine , Random Performed By: #### L 400.0001 ####[facility] [address] [place], [address] WBC 5-10 SEEN Normal 0-5 [facility] Comment on above: Order Comment: Urine , Random Performed By: #### L 400.0001 ####[facility] [address] [place], [address] BACTERIA 0 SEEN Normal None Seen [facility] Comment on above: Order Comment: Urine , Random Performed By: #### L 400.0001 ####[facility] [address] [place], [address] Mucus Ql (Urine sed) 0 SEEN Normal [facility] Comment on above: Order Comment: Urine , Random Performed By: #### L 400.0001 ####[facility] [address] [place], [address] RBC 0 SEEN Normal 0-5 [facility] Comment on above: Order Comment: Urine , Random Performed By: #### L 400.0001 ####[facility] [address] [place], [address] Urine clarityOrdered By: Ivan Tiwari on 09-18-2024 Clarity (U) Clear Clear [facility] Urine color determinationOrd ered By: Jimmy Tiwari on 09-18-2024 Color (U) Yellow Yellow [facility] Urine glucose detectionOrder ed By: Jimmy Tiwari on 09-18-2024 Glucose Ql (U) Normal mg/dl Normal [facility] Urine leukocyte esterase det ection by dipstickOrdered By: Jimmy Tiwari on 09-18-2024 Leukocyte esterase Test strip Ql (U) 500 /ul High Negative [facility] Urine pHOrdered By: Jimmy westfall on 09-18-2024 pH (U) 7.0 [pH] 5.0 - 8.0 [facility] Urine sediment bacteria coun t by microscopy (number/high power field)Ordered By: Jimmy Tiwari on 09-18-2024 Bacteria LM.HPF (Urine sed) [#/Area] 0 /[HPF] None Seen [facility] Urine specific gravity measu rementOrdered By: Jimmy Tiwari on 09-18-2024 Specific gravity (U) [Rel density] 1.010 1.002-1.030 [facility] Urine urobilinogen measureme ntOrdered By: Jimmy Tiwari on 09-18-2024 Urobilinogen Ql (U) Normal mg/dl Normal [facility] White blood cell (WBC) count Ordered By: Wilmer Miles on 09-18-2024 WBC (Bld) [#/Vol] 4.5 10*3/uL 4.4-11.0 [facility] White blood cell countOrdere d By: Jimmy Tiwari on 09-18-2024 White blood cell count 5-10 SEEN /hpf 0-5 [facility] Inj/Asp Estrada Jt Should/Hip/Kn eeon 07-06-2024 Inj/Asp Estrada Jt Should/Hip/Knee [facility] [address] [place], [place] [address] Inj/Asp Estrada Jt Should/Hip/Knee MR#: [id number] Acct: [id number] Name: LENA GOODMAN Rep #: [id number] : 1940 F 84 From: Janes Mobley PCP: Dr. Breonna Dooley MD Status: REG CLI Study: Inj/Asp Estrada Jt Should/Hip/Knee Date of Exam: 0 07/06/24 Exam# [id number] Ordering Dr: Reyes Martinez MD EXAM: Right shoulder injection under fluoroscopic guidance. CLINICAL HISTORY: Pain. COMPARISON: None. TECHNIQUE: See below. FINDINGS: Informed consent was obtained. Fluoroscopic guidance, aseptic technique, local anesthesia were utilized. The right shoulder joint was entered directly with 20 gauge spinal needle. 2 cc of omni view 370 were introduced, confirming the tip of the needle to be within the glenohumeral joint. Subsequently, 4 cc of lidocaine 1% mixed with 8 cc of Depo- Medrol were injected and the needle removed. Patient tolerated the procedure well and was discharged home directly. RAD/Inj/Asp Estrada Jt Should/Hip/Knee IMPRESSION: Uneventful fluoro guided intra-articular injection of local anesthetic and a particulate steroid. Reading Location: [place] [address] CC: Dr. Breonna Dooley MD; Dr. Reyes Martinez MD Application Security Developer: Signed Normal [facility] Absolute neutrophil countOrd ered By: Wilmer Miles on 04-01-2024 Neutrophils (Bld) [#/Vol] 4.0 10*3/uL 2.0-7.7 [facility] Albumin to globulin ratioOrd ered By: Wilmer Miles on 04-01-2024 Albumin/Globulin [Mass ratio] 1.2 {ratio} 0.9-2.4 [facility] Basophil percentageOrdered B y: Wilmer Miles on 04-01-2024 Basophils/100 WBC (Bld) 1.0 % 0-1 [facility] Bilirubin, totalOrdered By: Wilmer Miles on 04-01-2024 Bilirubin [Mass/Vol] 0.50 mg/dL 0.20-1.00 [facility] Comment on above: For patients on eltr ombopag therapy, use of Dimension [place] TBIL is not recommended. Blood urea nitrogen (BUN)/cr eatinine ratioOrdered By: Wilmer Miles on 04-01-2024 Urea nitrogen/Creatinine [Mass ratio] 13.5 mg/mg 10-20 [facility] CBC W/Diff, Automatedon 03-15 Absolute Lymph 1.49 X10 3/uL Normal 0.83-4.51 [facility] Comment on above: Performed By: #### L 504.2610, L500.4050, L100.0100 ####[facility] [address] [place], [address] Absolute Neut 4.0 X10 3/uL Normal 2.0-7.7 [facility] Comment on above: Performed By: #### L 504.2610, L500.4050, L100.0100 ####[facility] [address] [place], [address] Basophils/100 WBC (Bld) 1.0 % Normal 0-1 [facility] Comment on above: Performed By: #### L 504.2610, L500.4050, L100.0100 ####[facility] [address] [place], [address] Eosinophils/100 WBC (Bld) 1.5 % Normal 0-5 [facility] Comment on above: Performed By: #### L 504.2610, L500.4050, L100.0100 ####[facility] [address] [place], [address] Erythrocyte distribution width (RBC) [Ratio] 13.2 % Normal 11.6-14.6 [facility] Comment on above: Performed By: #### L 504.2610, L500.4050, L100.0100 ####[facility] [address] [place], [address] Hematocrit (Bld) [Volume fraction] 39.6 % Normal 37-47 [facility] Comment on above: Performed By: #### L 504.2610, L500.4050, L100.0100 ####[facility] [address] [place], [address] Hemoglobin (Bld) [Mass/Vol] 13.5 g/dL Normal 12.0-15.0 [facility] Comment on above: Performed By: #### L 504.2610, L500.4050, L100.0100 ####[facility] [address] [place], [address] IG% 0.600 Normal 0.0-0.9 [facility] Comment on above: Result Comment: IG% - Immature Granulocytes (promyelocytes, myelocytes and metamyelocytes) > 1% indicates that a LEFT SHIFT is Present. Performed By: #### L 504.2610, L500.4050, L100.0100 ####[facility] [address] [place], [address] Lymphocytes/100 WBC (Bld) 24.0 % Normal 19-41 [facility] Comment on above: Performed By: #### L 504.2610, L500.4050, L100.0100 ####[facility] [address] [place], [address] MCH (RBC) [Entitic mass] 34.7 pg High 27.0-32.0 [facility] Comment on above: Performed By: #### L 504.2610, L500.4050, L100.0100 ####[facility] [address] [place], [address] MCHC (RBC) [Mass/Vol] 34.1 g/dL Normal 32-36 [facility] Comment on above: Performed By: #### L 504.2610, L500.4050, L100.0100 ####[facility] [address] [place], [address] MCV (RBC) [Entitic vol] 101.8 fL High 81-99 [facility] Comment on above: Performed By: #### L 504.2610, L500.4050, L100.0100 ####[facility] [address] [place], [address] Monocytes/100 WBC (Bld) 9.0 % Normal 0-10 [facility] Comment on above: Performed By: #### L 504.2610, L500.4050, L100.0100 ####[facility] [address] [place], [address] Neutrophils/100 WBC (Bld) 63.9 % Normal 47-70 [facility] Comment on above: Performed By: #### L 504.2610, L500.4050, L100.0100 ####[facility] [address] [place], [address] Nucleated RBC (Bld) [#/Vol] 0 10*3/uL Normal 0-5 [facility] Comment on above: Performed By: #### L 504.2610, L500.4050, L100.0100 ####[facility] [address] [place], [address] Platelet mean volume (Bld) [Entitic vol] 9.2 fL Normal 6.2-12.0 [facility] Comment on above: Performed By: #### L 504.2610, L500.4050, L100.0100 ####[facility] [address] [place], [address] Platelets (Bld) [#/Vol] 180 10*3/uL Normal 150-450 [facility] Comment on above: Performed By: #### L 504.2610, L500.4050, L100.0100 ####[facility] [address] [place], [address] RBC (Bld) [#/Vol] 3.89 10*6/uL Low 4.2-5.4 [facility] Comment on above: Performed By: #### L 504.2610, L500.4050, L100.0100 ####[facility] [address] [place], [address] RDW SD 49.4 fl High 35.1-43.9 [facility] Comment on above: Performed By: #### L 504.2610, L500.4050, L100.0100 ####[facility] [address] [place], [address] WBC (Bld) [#/Vol] 6.2 10*3/uL Normal 4.4-11.0 [facility] Comment on above: Performed By: #### L 504.2610, L500.4050, L100.0100 ####[facility] [address] [place], [address] Carbon dioxide measurementOr dered By: Wilmer Miles on 04-01-2024 CO2 [Moles/Vol] 31.0 mmol/L 21.0-32.0 [facility] Chloride measurementOrdered By: Wilmer Miles on 04-01-2024 Chloride [Moles/Vol] 106 mmol/L 98-107 [facility] Comprehensive Metabolic Prof ilon 04-01-2024 Albumin [Mass/Vol] 3.9 g/dL Normal 3.2-5.0 [facility] Comment on above: Order Comment: 1 Performed By: #### L 504.2610, L500.4050, L100.0100 ####[facility] [address] [place], [address] Albumin/Globulin [Mass ratio] 1.2 {ratio} Normal 0.9-2.4 [facility] Comment on above: Order Comment: 1 Performed By: #### L 504.2610, L500.4050, L100.0100 ####[facility] [address] [place], [address] ALK P 64 U/L Normal 45-117 [facility] Comment on above: Order Comment: 1 Performed By: #### L 504.2610, L500.4050, L100.0100 ####[facility] [address] [place], [address] ALT [Catalytic activity/Vol] 21 U/L Normal 13-56 [facility] Comment on above: Order Comment: 1 Performed By: #### L 504.2610, L500.4050, L100.0100 ####[facility] [address] [place], [address] AST [Catalytic activity/Vol] 25 U/L Normal 15-37 [facility] Comment on above: Order Comment: 1 Performed By: #### L 504.2610, L500.4050, L100.0100 ####[facility] [address] [place], [address] Bilirubin [Mass/Vol] 0.50 mg/dL Normal 0.20-1.00 [facility] Comment on above: Order Comment: 1 Result Comment: For patients on eltrombopag therapy, use of Dimension [place] TBIL is not recommended. Performed By: #### L 504.2610, L500.4050, L100.0100 ####[facility] [address] [place], [address] BUN/CRE 13.5 RATIO Normal 10-20 [facility] Comment on above: Order Comment: 1 Performed By: #### L 504.2610, L500.4050, L100.0100 ####[facility] [address] [place], [address] CA,Total 9.3 mg/dL Normal 8.5-10.1 [facility] Comment on above: Order Comment: 1 Performed By: #### L 504.2610, L500.4050, L100.0100 ####[facility] [address] [place], [address] Chloride [Moles/Vol] 106 mmol/L Normal 98-107 [facility] Comment on above: Order Comment: 1 Performed By: #### L 504.2610, L500.4050, L100.0100 ####[facility] [address] [place], [address] CO2 [Moles/Vol] 31.0 mmol/L Normal 21.0-32.0 [facility] Comment on above: Order Comment: 1 Performed By: #### L 504.2610, L500.4050, L100.0100 ####[facility] [address] [place], [address] Creatinine [Mass/Vol] 0.96 mg/dL Normal 0.55-1.02 [facility] Comment on above: Order Comment: 1 Result Comment: The validity of the calculated GFR GFRAA in patients over 70 years has not been determined. Clinical correlation is essential. Performed By: #### L 504.2610, L500.4050, L100.0100 ####[facility] [address] [place], [address] ECRCL 34.46 ml/min Normal [facility] Comment on above: Order Comment: 1 Performed By: #### L 504.2610, L500.4050, L100.0100 ####[facility] [address] [place], [address] EST GFR - AA 71 mL/min Normal >60 [facility] Comment on above: Order Comment: 1 Result Comment: Afri can Nauruan GFR Calc Performed By: #### L 504.2610, L500.4050, L100.0100 ####[facility] [address] [place], [address] GAP 4 Low 5-15 [facility] Comment on above: Order Comment: 1 Performed By: #### L 504.2610, L500.4050, L100.0100 ####[facility] [address] [place], [address] GFR/1.73 sq M.predicted among non-blacks MDRD (S/P/Bld) [Vol rate/Area] 59 mL/min/{1.73_m2} Low >60 [facility] Comment on above: Order Comment: 1 Result Comment: Non- GFR Calc Performed By: #### L 504.2610, L500.4050, L100.0100 ####[facility] [address] [place], [address] Globulin (S) [Mass/Vol] 3.2 g/dL Normal 2.2-4.2 [facility] Comment on above: Order Comment: 1 Performed By: #### L 504.2610, L500.4050, L100.0100 ####[facility] [address] [place], [address] Glucose [Mass/Vol] 90 mg/dL Normal 74-106 [facility] Comment on above: Order Comment: 1 Performed By: #### L 504.2610, L500.4050, L100.0100 ####[facility] [address] [place], [address] Potassium [Moles/Vol] 3.8 mmol/L Normal 3.5-5.1 [facility] Comment on above: Order Comment: 1 Performed By: #### L 504.2610, L500.4050, L100.0100 ####[facility] [address] [place], [address] Sodium [Moles/Vol] 141 mmol/L Normal 136-145 [facility] Comment on above: Order Comment: 1 Performed By: #### L 504.2610, L500.4050, L100.0100 ####[facility] [address] [place], [address] T PROT 7.1 g/dL Normal 6.4-8.2 [facility] Comment on above: Order Comment: 1 Performed By: #### L 504.2610, L500.4050, L100.0100 ####[facility] [address] [place], [address] Urea nitrogen [Mass/Vol] 13 mg/dL Normal 7-18 [facility] Comment on above: Order Comment: 1 Performed By: #### L 504.2610, L500.4050, L100.0100 ####[facility] [address] [place], [address] Eosinophil percentageOrdered By: Wilmer Miles on 04-01-2024 Eosinophils/100 WBC (Bld) 1.5 % 0-5 [facility] Erythrocyte distribution wid th ratioOrdered By: Wilmer Miles on 04-01-2024 Erythrocyte distribution width (RBC) [Ratio] 13.2 % 11.6-14.6 [facility] Erythrocyte distribution wid th standard deviationOrdered By: Wilmer Miles on 04-01-2024 Erythrocyte distribution width (RBC) [Entitic vol] 49.4 fL High 35.1-43.9 [facility] Estimated glomerular filtrat ion rate (GFR) AmericanOrdered By: Wilmer Miles on 04-01-2024 Estimated GFR (MDRD) Amer 71 mL/min >60 [facility] Comment on above: GFR Calc Estimation of creatinine dinesh aranceOrdered By: Wilmer Miles on 04-01-2024 Estimated Creatinine Clearance Calc 34.46 ml/min [facility] Glomerular filtration rate ( GFR) estimationOrdered By: Wilmer Miles on 04-01-2024 Estimated GFR (MDRD) Non-Af Amer 59 mL/min Low >60 [facility] Comment on above: Non- GFR Calc Glucose measurementOrdered B y: Wilmer Miles on 04-01-2024 Glucose [Mass/Vol] 90 mg/dL 74-106 [facility] Hematocrit Auto (Bld) [Volum e fraction]Ordered By: Wilmer Miles on 04-01-2024 Hematocrit (Bld) [Volume fraction] 39.6 % 37-47 [facility] Hemoglobin measurementOrdere d By: Wilmer Miles on 04-01-2024 Hemoglobin (Bld) [Mass/Vol] 13.5 g/dL 12.0-15.0 [facility] Immature granulocytes/100 WB C Auto (Bld)Ordered By: Wilmer Miles on 04-01-2024 Immature granulocytes/100 WBC (Bld) 0.600 % 0.0-0.9 [facility] Comment on above: IG% - Immature Granu locytes (promyelocytes, myelocytes and metamyelocytes) > 1% indicates that a LEFT SHIFT is Present. LDHon 04-01-2024 LDH 201 U/L Normal 84-246 [facility] Comment on above: Order Comment: 1 Performed By: #### L 504.2610, L500.4050, L100.0100 ####[facility] [id number] [place], [place], [id number] Laboratory - Chemistry and C hemistry - challengeOrdered By: Wilmer Miles on 04-01-2024 AST [Catalytic activity/Vol] 25 U/L 15-37 [facility] Lactate dehydrogenase (LDH) measurementOrdered By: Wilmer Miles on 04-01-2024 LDH [Catalytic activity/Vol] 201 U/L 84-246 [facility] Lymphocytes Auto (Unsp spec) [#/Vol]Ordered By: Wilmer Miles on 04-01-2024 Lymphocytes (Bld) [#/Vol] 1.49 10*3/uL 0.83-4.51 [facility] Lymphocytes/100 WBC Auto (Un sp spec)Ordered By: Wilmer Miles on 04-01-2024 Lymphocytes/100 WBC (Bld) 24.0 % 19-41 [facility] MCV (mean corpuscular volume ) determinationOrdered By: Wilmer Miles on 04-01-2024 MCV (RBC) [Entitic vol] 101.8 fL High 81-99 [facility] Mean corpuscular hemoglobin (MCH) determinationOrdered By: Wilmer Miles on 04-01-2024 MCH (RBC) [Entitic mass] 34.7 pg High 27.0-32.0 [facility] Mean corpuscular hemoglobin concentration (MCHC) determinationOrdered By: Wilmer Miles on 04-01-2024 MCHC (RBC) [Mass/Vol] 34.1 g/dL 32-36 [facility] Mean platelet volume determi nationOrdered By: Wilmer Miles on 04-01-2024 Platelet mean volume (Bld) [Entitic vol] 9.2 fL 6.2-12.0 [facility] Monocyte percentageOrdered B y: Wilmer Miles on 04-01-2024 Monocytes/100 WBC (Bld) 9.0 % 0-10 [facility] Neutrophil percentageOrdered By: Wilmer Miles on 04-01-2024 Neutrophils/100 WBC (Bld) 63.9 % 47-70 [facility] Nucleated red blood cell per centageOrdered By: Wilmer Miles on 04-01-2024 Nucleated RBC/100 WBC (Bld) [Ratio] 0 % 0-5 [facility] Oncology Visit Reporton 03-15 Oncology Visit Report [facility] [address] [place] [address] OFFICE VISIT Date of Service: 04/01/24 0950 MR#: [id number] Acct: [id number] Name: MARIUMLENA PHOENIXE Rep #: [id number] : 1940 From: Wilmer Miles MD Age/Sex: 83/F [place] [facility] Status: Signed HPI Subjective Date of Service 04/01/24 Chief Complaint F/u for R breast cancer History of Present Illness 83-year-old female with a family history of breast cancer (sister, niece daughter of same sister) and an abdominal cancer may be ovarian (another sister). Her last screening mammogram was in July 2018. She presented in September 2021 as a self palpated painless right breast mass. A diagnostic mammogram and ultrasound was highly suspicious. 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 Had R breast lumpectomy and sentinel node dissection on 10/10/2021. September 25, 2021 Right breast mass, core biopsy: Invasive ductal carcinoma, nuclear grade 2/3 (1 cm in greatest length). E-Cad (ECH-6) positive CK8 ([id number]) positive Calponin-1 (EZ314A) negative CK5-6 (D5 1684) negative P40 (BC28) negative P53 (DO-7) positive, strong and diffuse Ki-67 (30-9) positive, low, 15-20% MORPHOMETRIC ANALYSIS ER (clone 6F11) >95%, strong intensity NV (clone 16/1E2) variable, 0-19%, weak intensity Her-2Neu (clone CB11) 1+, focal October 10, 2021 she underwent out guided wire localization lumpectomy with sentinel lymph node biopsy. MICROSCOPIC DIAGNOSIS A. Right axillary sentinel lymph nodes, biopsy: Two out of two lymph nodes, negative for metastatic carcinoma. See comment. B. Right breast mass, ultrasound-guided wire localization lumpectomy: Invasive ductal carcinoma. COMMENT A. The lymph nodes are negative for metastatic carcinoma on multiple H E levels and immunohisto- chemical stains for cytokeratins ([id number]). B. BREAST CANCER SUMMARY Procedure - wire localization lumpectomy Specimen laterality - right Tumor site ??? not specified Tumor size ??? 1.3 x 1 x 1 cm Histologic type ??? invasive ductal carcinoma, no specific type. Histologic grade (Gray grade): Glandular/tubular differentiation score - 3 Nuclear pleomorphism score - 2 Mitotic count score - 1 Overall grade - grade 2 (score of 6) Tumor focality ??? single focus of invasive carcinoma. Ductal carcinoma in situ ??? not identified Lobular carcinoma in situ ??? no lobular carcinoma in situ is noted in the specimen. Tumor extension: Skin ??? not present Nipple ??? not applicable Skeletal muscle ??? not present Margins: Invasive ductal carcinoma is 0.5 cm away from the closest lateral margin. Regional lymph nodes: Total number of lymph nodes examined - 2 Number of sentinel lymph nodes examined - 2 Number of lymph nodes with macrometastases, micrometastases or isolated tumor cells - 0 Treatment effect - no known presurgical therapy. Lymphvascular invasion ??? not identified Dermal lymphvascular invasion ??? not applicable Distant metastasis ??? not applicable Additional Pathologic Findings ??? - focal mild intraductal hyperplasia without atypia. - Chronic inflammation surrounding the lobules. Ancillary Studies: Previously performed on same tumor ([id number] / [id number]) ER: positive (>95%, strong intensity) NV: positive (variable, 0-19%, weak intensity) Bpy7yjq: negative (1+, focal) Microcalcification s ??? present in non-neoplastic tissue. Clinical History - Please make reference to previous specimen ([id number]), right breast mass, core biopsy with diagnosis of ???invasive ductal carcinoma.??? PATHOLOGIC STAGE: pT1c pN0(sn) pMx 11/09/21: [employer] STAT panel of 10 genes (KASANDRA, BARD1, BRCA1, BRCA2, CDH1, CHEK2, PALB2, PTEN, STK11, TP53): No known pathogenic or likely pathogenic variants were detected Treatment Summary: Adjuvant radiation 12/04/2021 ??? 12/13/2021: received 2850 cGy of mixed 6 and 10 MV photons in 5 fractions delivered in non-consecutive days to the right partial breast with a 3D conformal technique. Adjuvant endocrine therapy: 01/12/22-with Anastrozole. Started Prolia on 03/28/2022, changed to Reclast in March 2023. Comes for follow up. Remains on Anastrozole. Feels well. Interval History [facility] Medical History Skin cancer Osteopenia Encounter for education Use of aromatase inhibitors History of osteopenia ER+ (estrogen receptor positive status) Breast cancer in female Wears glasses Wears dentures Post-menopausal Thyroid disease Back pain Smoker Shortness of breath on exertion Leg cramps Hypothyroid Rheumatoid arthritis Surgical History History of lumpectomy of right breast ( 09/2021) History of hand surgery Status post left hip replacement S/P hysterectomy Fa (more content not included)... Normal [facility] Platelet countOrdered By: Fabiola Miles on 04-01-2024 Platelets (Bld) [#/Vol] 180 10*3/uL 150-450 [facility] Potassium measurementOrdered By: Wilmer Miles on 04-01-2024 Potassium [Moles/Vol] 3.8 mmol/L 3.5-5.1 [facility] RBC Auto (Bld) [#/Vol]Ordere d By: Wilmer Miles on 04-01-2024 RBC (Bld) [#/Vol] 3.89 10*6/uL Low 4.2-5.4 [facility] Radiation Oncology Visiton 1 06-02-2023 Radiation Oncology Visit [facility] [address] [place] [address] OFFICE VISIT Date of Service: 04/01/24 1008 MR#: [id number] Acct: [id number] Name: LENA GOODMAN Rep #: [id number] : 1940 From: Willi Calderon DO Age/Sex: 83/F Location: [facility] Status: Signed Intake Vital Signs 09/24/23 10:40 04/01/24 09:51 04/01/24 10:09 Height 5 ft 2 in 5 ft 2 in Weight: 112 lb 4 oz 112 lb 4 oz BMI 20.5 BP 147/64 H Blood Pressure Location Lt brachial Position Sitting Respiration 18 Pulse 62 Pulse Source Monitor Temp 98.5 F Temperature Source Temporal Artery Pulse Oximetry (%) 98 Oxygen Delivery Method room air Intake Visit Reasons: 6 MONTH F/U BREAST Is patient in pain?: No Allergies No Known Allergies Allergy (Verified 04/01/24 09:50) Have you fallen in the past year?: No PFSH PFSH Medical History Skin cancer Osteopenia Encounter for education Use of aromatase inhibitors History of osteopenia ER+ (estrogen receptor positive status) Breast cancer in female Wears glasses Wears dentures Post-menopausal Thyroid disease Back pain Smoker Shortness of breath on exertion Leg cramps Hypothyroid Rheumatoid arthritis Allergy/AdvReac Type Severity Reaction Status Date / Time No Known Allergies Allergy Verified 04/01/24 09:50 Family History Sister Breast cancer Brother CVA (cerebral vascular accident) Heart disease Surgical History History of lumpectomy of right breast ( 09/2021) History of hand surgery Status post left hip replacement S/P hysterectomy Social History Smoking Status: Current every day smoker tobacco type: cigarettes alcohol intake: never Diagnosis: Brandon Goodman is an 83-year-old female diagnosed with pathologic stage IA (pT1c pN0 (sn) Mx) grade 2 invasive ductal carcinoma (ER > 95%, NV 0-19%, HER2 1+ IHC) of the right breast status post bilateral diagnostic mammogram with right breast ultrasound (09/20/2021), right breast biopsy (09/25/2021), right breast lumpectomy and sentinel lymph node biopsy (10/10/2021) and evaluation by medical oncology (11/01/2021).??? From 12/04/2021 ??? 12/13/2021 she received right breast APBI. History of Present Illness: 09/20/2021: Bilateral diagnostic mammogram was performed.??? This demonstrated that the palpable mass in the right breast corresponds to a 1.1 x 1 cm spiculated nodule in the deep upper central portion of the breast, recommend correlation with ultrasound.??? BI-RADS Category 0 09/20/2021: Right breast ultrasound was performed.??? The mammographic abnormality corresponds to a 1 x 0.9 x 0.6 cm regular hypoechoic solid nodule at the 1 o'clock position of the breast 7 cm from the nipple.??? Recommend biopsy.??? Incidental note is made of a heterogeneous appearing axillary lymph node with the largest measuring 1.9 x 1.3 x 0.8 cm.??? BI-RADS Category 4. 09/25/2021: Right breast biopsy was performed.??? Pathology demonstrated grade 2 invasive ductal carcinoma (ER > 95%, NV 0-19%, HER2 1+ IHC). 10/10/2021: Patient completed right breast lumpectomy and sentinel lymph node biopsy.??? Pathology demonstrated grade 2 invasive ductal carcinoma measuring 1.3 x 1 x 1 cm, margins negative with the closest margin being 5 mm from the lateral margin, LVSI not identified, 0/2 lymph nodes contain metastatic disease. pT1c pN0 (sn) 11/01/2021: Patient was evaluated by medical oncology.??? Patient has a very good performance status but given her age Oncotype score was not deemed to be necessary.??? Planning for hormone therapy. From 12/04/2021 ??? 12/13/2021: received 2850 cGy of mixed 6 and 10 MV photons in 5 fractions delivered in non-consecutive days to the right partial breast with a 3D conformal technique. 09/21/2022: Bilateral screening mammography was performed.??? This demonstrated no dominant masses or suspicious calcifications.??? The patient is status post lumpectomy in the upper deep central portion of the right breast and there is also noted to be postsurgical scarring in this area and surgical clips seen in the right axillary region.??? No other abnormalities are noted.??? BI-RADS Category 2. 12/04/2022: Low-dose CT scan for lung cancer screening was completed.??? This demonstrated stable pulmonary nodules from 2020 without obvious changes. 09/23/2023: Bilateral screening mammography was performed. This demonstrated no dominant masses or suspicious calcifications. Once again the patient is status post lumpectomy in the upper deep central portion of the right breast with stable postoperative scarring. BI-RADS Category 2. Radiation Treatment (more content not included)... Normal [facility] Serum anion gap measurementO rdered By: Wilmer Miles on 04-01-2024 Anion gap [Moles/Vol] 4 mmol/L Low 5-15 [facility] Serum globulin measurementOr dered By: Wilmer Miles on 04-01-2024 Globulin (S) [Mass/Vol] 3.2 g/dL 2.2-4.2 [facility] Serum or plasma alanine moreno otransferase (ALT) measurementOrdered By: Wilmer Miles on 04-01-2024 ALT [Catalytic activity/Vol] 21 U/L 13-56 [facility] Serum or plasma albumin gil urement (mass/volume)Ordered By: Wilmer Miles on 04-01-2024 Albumin [Mass/Vol] 3.9 g/dL 3.2-5.0 [facility] Serum or plasma alkaline rena sphatase measurementOrdered By: Wilmer Miles on 04-01-2024 ALP [Catalytic activity/Vol] 64 U/L 45-117 [facility] Serum or plasma calcium gil urement (mass/volume)Ordered By: Wilmer Miles on 04-01-2024 Calcium [Mass/Vol] 9.3 mg/dL 8.5-10.1 [facility] Serum or plasma creatinine m easurement (mass/volume)Ordered By: Wilmer Miles on 04-01-2024 Creatinine [Mass/Vol] 0.96 mg/dL 0.55-1.02 [facility] Comment on above: The validity of the calculated GFR & GFRAA in patients over 70 years has not been determined. Clinical correlation is essential. Serum or plasma urea nitroge n measurement (mass/volume)Ordered By: Wilmer Miles on 04-01-2024 Urea nitrogen [Mass/Vol] 13 mg/dL 10-30 [facility] Sodium levelOrdered By: Laureano Miles on 04-01-2024 Sodium [Moles/Vol] 141 mmol/L 136-145 [facility] Total proteinOrdered By: Calvin Miles on 04-01-2024 Protein [Mass/Vol] 7.1 g/dL 6.4-8.2 [facility] White blood cell (WBC) count Ordered By: Wilmer Miles on 04-01-2024 WBC (Bld) [#/Vol] 6.2 10*3/uL 4.4-11.0 [facility] 05-BJ-Stlizod DOrdered By: Kaycee Miles on 09-24-2023 Vitamin D 25-Hydroxy 43.1 ng/mL [facility] Comment on above: Vitamin D 25(OH) Sta tus Range Deficiency <20 ng/mL (50nmol/L) Insufficiency 20 - 30 ng/mL (50 - 75 nmol/L) Sufficiency 30 - 100 ng/mL (75 - 250 nmol/L) Toxicity >100 ng/mL (>250 nmol/L) Radiation Oncology Visiton 0 09-24-2023 Radiation Oncology Visit [facility] [address] [place], [place] [address] [place] [address] OFFICE VISIT Date of Service: 09/24/23 [facility] MR#: [id number] Acct: [id number] Name: ELNA GOODMAN Rep #: [id number] : 1940 From: Willi Calderon DO Age/Sex: 83/F Location: [facility] Status: Signed Intake Vital Signs 06/06/23 09:31 09/19/23 13:45 09/24/23 10:40 Height 5 ft 2 in 5 ft 2 in 5 ft 2 in Weight: 106 lb 8 oz BMI 19.5 BP 158/68 H Blood Pressure Location Lt brachial Position Sitting Respiration 16 Pulse 54 L Pulse Source Monitor Temp 97.8 F Temperature Source Temporal Artery Pulse Oximetry (%) 98 Oxygen Delivery Method room air Intake Visit Reasons: 4 MONTH F/U BREAST, REVIEW MAMMO Is patient in pain?: No Allergies No Known Allergies Allergy (Verified 09/24/23 10:40) Medications ???Medication ???Instructions ???Recorded ???Confirmed ???Type cholecalciferol (vitamin D3) 25 1,000 unit PO DAILY 07/19/16 09/24/23 History mcg (1,000 unit) capsule (Vitamin D3) folic acid 1 mg tablet 1 mg PO DAILY@0800 07/19/16 09/24/23 History levothyroxine 88 mcg capsule 88 mcg PO DAILY 09/25/21 09/24/23 History meloxicam 15 mg tablet 15 mg PO DAILY 10/03/21 09/24/23 History calcium phos,tribasic 260 mg-D3 25 tab PO 12/06/21 09/24/23 History mcg-herbal 50 mg chewable tablet (Alive Calcium-Vitamin D3) anastrozole 1 mg tablet See Rx Instructions .Route 12/25/22 09/24/23 Rx .COMPLEX #90 tabs PFSH PFSH Medical History Skin cancer Osteopenia Encounter for education Use of aromatase inhibitors History of osteopenia ER+ (estrogen receptor positive status) Breast cancer in female Wears glasses Wears dentures Post-menopausal Thyroid disease Back pain Smoker Shortness of breath on exertion Leg cramps Hypothyroid Rheumatoid arthritis Home Medications ???Medication ???Instructions ???Recorded ???Last Taken ???Type cholecalciferol (vitamin D3) 25 1,000 unit PO DAILY 07/19/16 Unknown History mcg (1,000 unit) capsule (Vitamin D3) folic acid 1 mg tablet 1 mg PO DAILY@0800 07/19/16 Unknown History levothyroxine 88 mcg capsule 88 mcg PO DAILY 09/25/21 Unknown History meloxicam 15 mg tablet 15 mg PO DAILY 10/03/21 Unknown History calcium phos,tribasic 260 mg-D3 25 tab PO 12/06/21 Unknown History mcg-herbal 50 mg chewable tablet (Alive Calcium-Vitamin D3) anastrozole 1 mg tablet See Rx Instructions .Route 12/25/22 Unknown Rx .COMPLEX #90 tabs Allergy/AdvReac Type Severity Reaction Status Date / Time No Known Allergies Allergy Verified 09/24/23 10:40 Family History Sister Breast cancer Brother CVA (cerebral vascular accident) Heart disease Surgical History History of lumpectomy of right breast ( 09/2021) History of hand surgery Status post left hip replacement S/P hysterectomy Social History Smoking Status: Current every day smoker tobacco type: cigarettes alcohol intake: never Diagnosis: Brandon Goodman is an 83-year-old female diagnosed with pathologic stage IA (pT1c pN0 (sn) Mx) grade 2 invasive ductal carcinoma (ER > 95%, NV 0-19%, HER2 1+ IHC) of the right breast status post bilateral diagnostic mammogram with right breast ultrasound (09/20/2021), right breast biopsy (09/25/2021), right breast lumpectomy and sentinel lymph node biopsy (10/10/2021) and evaluation by medical oncology (11/01/2021).??? From 12/04/2021 ??? 12/13/2021 she received right breast APBI. History of Present Illness: 09/20/2021: Bilateral diagnostic mammogram was performed.??? This demonstrated that the palpable mass in the right breast corresponds to a 1.1 x 1 cm spiculated nodule in the deep upper central portion of the breast, recommend correlation with ultrasound.??? BI-RADS Category 0 09/20/2021: Right breast ultrasound was performed.??? The mammographic abnormality corresponds to a 1 x 0.9 x 0.6 cm regular hypoechoic solid nodule at the 1 o'clock position of the breast 7 cm from the nipple.??? Recommend biopsy.??? Incidental note is made of a heterogeneous appearing axillary lymph node with the largest measuring 1.9 x 1.3 x 0.8 cm.??? BI-RADS Category 4. 09/25/2021: Right breast biopsy was performed.??? Pathology demonstrated grade 2 invasive ductal carcinoma (ER > 95%, NV 0-19%, HER2 1+ IHC). 10/10/2021: Patient completed right breast lumpectomy and sentinel lymph node biopsy.??? Pathology demonstrated grade 2 invasive ductal carcinoma measuring 1.3 x 1 x 1 cm, margins negative with the closest margin being 5 mm from the lateral margin, LVSI not identified, 0/2 lymph nodes cont (more content not included)... Normal [facility] T4 Total, Thyroxinon 024 T4 [Mass/Vol] 12.0 ug/dL Normal 4.8-13.9 [facility] Comment on above: Order Comment: 1 Performed By: #### L 506.1000, L504.2610, L100.0100, L500.4050, L501.5200, L501.9520, L501.2300, L501.9310 ####[facility] [address] [place], [address] Thyroid Stim Hormone (TSH)on 09-24-2023 TSH 0.78 uIU/mL Normal 0.358-3.74 [facility] Comment on above: Order Comment: 1 Performed By: #### L 506.1000, L504.2610, L100.0100, L500.4050, L501.5200, L501.9520, L501.2300, L501.9310 ####[facility] [address] [place], [address] Vitamin D,25 Hydroxyon 09-23 Vitamin D 25-OH 43.1 ng/mL Normal [facility] Comment on above: Result Comment: Bren min D 25(OH) Status Range Deficiency <20 ng/mL (50nmol/L) Insufficiency 20 - 30 ng/mL (50 - 75 nmol/L) Sufficiency 30 - 100 ng/mL (75 - 250 nmol/L) Toxicity >100 ng/mL (>250 nmol/L) Performed By: #### L 506.1000, L504.2610, L100.0100, L500.4050, L501.5200, L501.9520, L501.2300, L501.9310 ####[facility] [address] [place], [address] SCRN MAMM (CAD)W/MARCO BILATo n 09-23-2023 SCRN MAMM (CAD)W/MARCO BILAT [facility] [address] [place], [place] [address] SCRN MAMM (CAD)W/MARCO BILAT MR#: [id number] Acct: [id number] Name: LENA GOODMAN Rep #: [id number] : 1940 F 83 From: Alberto hopper MD PCP: Dr. Breonna Dooley MD Status: [facility] Study: SCRN MAMM (CAD)W/MARCO BILAT Date of Exam: 09/13 Exam# [id number] Ordering Dr: Willi Calderon DO [id number] MAMMOGRAPHY - BILATERAL SCREENING REASON FOR EXAM: Female, 83 years old. Routine annual screening examination. PERTINENT HISTORY: Personal history of breast cancer. Prior right lumpectomy with radiation therapy. Sister with breast cancer. TECHNIQUE: Digital bilateral breast marco (3D mammographic acquisition) in the CC and MLO projections. 2-D mediolateral oblique (MLO) and craniocaudad (CC) views of both breasts were obtained. CAD: Full Field Digital Mammography with Computer Added Detection was performed. COMPARISON: Comparison is made with prior study dated September 21, 2022 and October 10, 2021. FINDINGS: Breast Composition: There are scattered areas of fibroglandular density. There are no dominant masses or suspicious calcifications. Once again, the patient is status post lumpectomy in the upper deep central portion of the right breast. Stable postoperative scarring. No other significant abnormalities are identified. There has been no significant change since the prior study. BI/SCRN MAMM (CAD)W/MARCO BILAT IMPRESSION: Stable bilateral screening mammogram. Yearly follow-up mammogram recommended. (A) ASSESSMENT CATEGORY: BIRADS Category 2: Benign. A letter regarding these results will be sent to the patient by the facility within 30 days. Approximately 10% of breast cancers are not detected by mammography. A normal mammogram should not delay biopsy of a clinically suspicious abnormality. [id number] Electronically Signed: Alberto Laurent MD at 13:19 EDT Reading Location ID and State: [address] [place] [address] , Service support , CC: Dr. Breonna Dooley MD; Dr. Willi Calderon DO Application Security Developer: Signed Normal [facility] CBC W/Diff, Automatedon 06-0 Absolute Lymph 1.56 X10 3/uL Normal 0.83-4.51 [facility] Comment on above: Performed By: #### L 506.1000, L504.2610, L100.0100, L500.4050, L501.5200, L501.9520, L501.2300, L501.9310 ####[facility] [address] [place], [address] Absolute Neut 4.3 X10 3/uL Normal 2.0-7.7 [facility] Comment on above: Performed By: #### L 506.1000, L504.2610, L100.0100, L500.4050, L501.5200, L501.9520, L501.2300, L501.9310 ####[facility] [address] [place], [address] Basophils/100 WBC (Bld) 0.6 % Normal 0-1 [facility] Comment on above: Performed By: #### L 506.1000, L504.2610, L100.0100, L500.4050, L501.5200, L501.9520, L501.2300, L501.9310 ####[facility] [address] [place], [address] Eosinophils/100 WBC (Bld) 0.8 % Normal 0-5 [facility] Comment on above: Performed By: #### L 506.1000, L504.2610, L100.0100, L500.4050, L501.5200, L501.9520, L501.2300, L501.9310 ####[facility] [address] [place], [address] Erythrocyte distribution width (RBC) [Ratio] 12.5 % Normal 11.6-14.6 [facility] Comment on above: Performed By: #### L 506.1000, L504.2610, L100.0100, L500.4050, L501.5200, L501.9520, L501.2300, L501.9310 ####[facility] [address] [place], [address] Hematocrit (Bld) [Volume fraction] 38.4 % Normal 37-47 [facility] Comment on above: Performed By: #### L 506.1000, L504.2610, L100.0100, L500.4050, L501.5200, L501.9520, L501.2300, L501.9310 ####[facility] [address] [place], [address] Hemoglobin (Bld) [Mass/Vol] 13.1 g/dL Normal 12.0-15.0 [facility] Comment on above: Performed By: #### L 506.1000, L504.2610, L100.0100, L500.4050, L501.5200, L501.9520, L501.2300, L501.9310 ####[facility] [address] [place], [address] IG% 0.500 Normal 0.0-0.9 [facility] Comment on above: Result Comment: IG% - Immature Granulocytes (promyelocytes, myelocytes and metamyelocytes) > 1% indicates that a LEFT SHIFT is Present. Performed By: #### L 506.1000, L504.2610, L100.0100, L500.4050, L501.5200, L501.9520, L501.2300, L501.9310 ####[facility] [address] [place], [address] Lymphocytes/100 WBC (Bld) 24.5 % Normal 19-41 [facility] Comment on above: Performed By: #### L 506.1000, L504.2610, L100.0100, L500.4050, L501.5200, L501.9520, L501.2300, L501.9310 ####[facility] [address] [place], [address] MCH (RBC) [Entitic mass] 34.3 pg High 27.0-32.0 [facility] Comment on above: Performed By: #### L 506.1000, L504.2610, L100.0100, L500.4050, L501.5200, L501.9520, L501.2300, L501.9310 ####[facility] [address] [place], [address] MCHC (RBC) [Mass/Vol] 34.1 g/dL Normal 32-36 [facility] Comment on above: Performed By: #### L 506.1000, L504.2610, L100.0100, L500.4050, L501.5200, L501.9520, L501.2300, L501.9310 ####[facility] [address] [place], [address] MCV (RBC) [Entitic vol] 100.5 fL High 81-99 [facility] Comment on above: Performed By: #### L 506.1000, L504.2610, L100.0100, L500.4050, L501.5200, L501.9520, L501.2300, L501.9310 ####[facility] [address] [place], [address] Monocytes/100 WBC (Bld) 6.8 % Normal 0-10 [facility] Comment on above: Performed By: #### L 506.1000, L504.2610, L100.0100, L500.4050, L501.5200, L501.9520, L501.2300, L501.9310 ####[facility] [address] [place], [address] Neutrophils/100 WBC (Bld) 66.8 % Normal 47-70 [facility] Comment on above: Performed By: #### L 506.1000, L504.2610, L100.0100, L500.4050, L501.5200, L501.9520, L501.2300, L501.9310 ####[facility] [address] [place], [address] Nucleated RBC (Bld) [#/Vol] 0 10*3/uL Normal 0-5 [facility] Comment on above: Performed By: #### L 506.1000, L504.2610, L100.0100, L500.4050, L501.5200, L501.9520, L501.2300, L501.9310 ####[facility] [address] [place], [address] Platelet mean volume (Bld) [Entitic vol] 9.8 fL Normal 6.2-12.0 [facility] Comment on above: Performed By: #### L 506.1000, L504.2610, L100.0100, L500.4050, L501.5200, L501.9520, L501.2300, L501.9310 ####[facility] [address] [place], [address] Platelets (Bld) [#/Vol] 168 10*3/uL Normal 150-450 [facility] Comment on above: Performed By: #### L 506.1000, L504.2610, L100.0100, L500.4050, L501.5200, L501.9520, L501.2300, L501.9310 ####[facility] [address] [place], [address] RBC (Bld) [#/Vol] 3.82 10*6/uL Low 4.2-5.4 [facility] Comment on above: Performed By: #### L 506.1000, L504.2610, L100.0100, L500.4050, L501.5200, L501.9520, L501.2300, L501.9310 ####[facility] [address] [place], [address] RDW SD 46.4 fl High 35.1-43.9 [facility] Comment on above: Performed By: #### L 506.1000, L504.2610, L100.0100, L500.4050, L501.5200, L501.9520, L501.2300, L501.9310 ####[facility] [address] [place], [address] WBC (Bld) [#/Vol] 6.4 10*3/uL Normal 4.4-11.0 [facility] Comment on above: Performed By: #### L 506.1000, L504.2610, L100.0100, L500.4050, L501.5200, L501.9520, L501.2300, L501.9310 ####[facility] [address] [place], [address] Comprehensive Metabolic Prof ilon 09-19-2023 Albumin [Mass/Vol] 3.5 g/dL Normal 3.2-5.0 [facility] Comment on above: Order Comment: 1 Performed By: #### L 506.1000, L504.2610, L100.0100, L500.4050, L501.5200, L501.9520, L501.2300, L501.9310 ####[facility] [address] [place], [address] Albumin/Globulin [Mass ratio] 1.1 {ratio} Normal 0.9-2.4 [facility] Comment on above: Order Comment: 1 Performed By: #### L 506.1000, L504.2610, L100.0100, L500.4050, L501.5200, L501.9520, L501.2300, L501.9310 ####[facility] [address] [place], [address] ALK P 64 U/L Normal 45-117 [facility] Comment on above: Order Comment: 1 Performed By: #### L 506.1000, L504.2610, L100.0100, L500.4050, L501.5200, L501.9520, L501.2300, L501.9310 ####[facility] [address] [place], [address] ALT [Catalytic activity/Vol] 19 U/L Normal 13-56 [facility] Comment on above: Order Comment: 1 Performed By: #### L 506.1000, L504.2610, L100.0100, L500.4050, L501.5200, L501.9520, L501.2300, L501.9310 ####[facility] [address] [place], [address] AST [Catalytic activity/Vol] 22 U/L Normal 15-37 [facility] Comment on above: Order Comment: 1 Performed By: #### L 506.1000, L504.2610, L100.0100, L500.4050, L501.5200, L501.9520, L501.2300, L501.9310 ####[facility] [address] [place], [address] Bilirubin [Mass/Vol] 0.30 mg/dL Normal 0.20-1.00 [facility] Comment on above: Order Comment: 1 Result Comment: For patients on eltrombopag therapy, use of Dimension [place] TBIL is not recommended. Performed By: #### L 506.1000, L504.2610, L100.0100, L500.4050, L501.5200, L501.9520, L501.2300, L501.9310 ####[facility] [address] [place], [address] BUN/CRE 10.6 RATIO Normal 10-20 [facility] Comment on above: Order Comment: 1 Performed By: #### L 506.1000, L504.2610, L100.0100, L500.4050, L501.5200, L501.9520, L501.2300, L501.9310 ####[facility] [address] [place], [address] CA,Total 9.0 mg/dL Normal 8.5-10.1 [facility] Comment on above: Order Comment: 1 Performed By: #### L 506.1000, L504.2610, L100.0100, L500.4050, L501.5200, L501.9520, L501.2300, L501.9310 ####[facility] [address] [place], [address] Chloride [Moles/Vol] 107 mmol/L Normal 98-107 [facility] Comment on above: Order Comment: 1 Performed By: #### L 506.1000, L504.2610, L100.0100, L500.4050, L501.5200, L501.9520, L501.2300, L501.9310 ####[facility] [address] [place], [address] CO2 [Moles/Vol] 26.0 mmol/L Normal 21.0-32.0 [facility] Comment on above: Order Comment: 1 Performed By: #### L 506.1000, L504.2610, L100.0100, L500.4050, L501.5200, L501.9520, L501.2300, L501.9310 ####[facility] [address] [place], [address] Creatinine [Mass/Vol] 1.04 mg/dL High 0.55-1.02 [facility] Comment on above: Order Comment: 1 Result Comment: The validity of the calculated GFR GFRAA in patients over 70 years has not been determined. Clinical correlation is essential. Performed By: #### L 506.1000, L504.2610, L100.0100, L500.4050, L501.5200, L501.9520, L501.2300, L501.9310 ####[facility] [address] [place], [address] ECRCL 32.98 ml/min Normal [facility] Comment on above: Order Comment: 1 Performed By: #### L 506.1000, L504.2610, L100.0100, L500.4050, L501.5200, L501.9520, L501.2300, L501.9310 ####[facility] [address] [place], [address] EST GFR - AA 65 mL/min Normal >60 [facility] Comment on above: Order Comment: 1 Result Comment: Afri can Nauruan GFR Calc Performed By: #### L 506.1000, L504.2610, L100.0100, L500.4050, L501.5200, L501.9520, L501.2300, L501.9310 ####[facility] [address] [place], [address] GAP 7 Normal 5-15 [facility] Comment on above: Order Comment: 1 Performed By: #### L 506.1000, L504.2610, L100.0100, L500.4050, L501.5200, L501.9520, L501.2300, L501.9310 ####[facility] [address] [place], [address] GFR/1.73 sq M.predicted among non-blacks MDRD (S/P/Bld) [Vol rate/Area] 54 mL/min/{1.73_m2} Low >60 [facility] Comment on above: Order Comment: 1 Result Comment: Non- GFR Calc Performed By: #### L 506.1000, L504.2610, L100.0100, L500.4050, L501.5200, L501.9520, L501.2300, L501.9310 ####[facility] [address] [place], [address] Globulin (S) [Mass/Vol] 3.1 g/dL Normal 2.2-4.2 [facility] Comment on above: Order Comment: 1 Performed By: #### L 506.1000, L504.2610, L100.0100, L500.4050, L501.5200, L501.9520, L501.2300, L501.9310 ####[facility] [address] [place], [address] Glucose [Mass/Vol] 134 mg/dL High 74-106 [facility] Comment on above: Order Comment: 1 Result Comment: Fast ing Glucose result greater than or equal to 126 mg/dL suggests DIABETES MELLITUS per A.D.A. criteria. Performed By: #### L 506.1000, L504.2610, L100.0100, L500.4050, L501.5200, L501.9520, L501.2300, L501.9310 ####[facility] [address] [place], [address] Potassium [Moles/Vol] 3.8 mmol/L Normal 3.5-5.1 [facility] Comment on above: Order Comment: 1 Performed By: #### L 506.1000, L504.2610, L100.0100, L500.4050, L501.5200, L501.9520, L501.2300, L501.9310 ####[facility] [address] [place], [address] Sodium [Moles/Vol] 140 mmol/L Normal 136-145 [facility] Comment on above: Order Comment: 1 Performed By: #### L 506.1000, L504.2610, L100.0100, L500.4050, L501.5200, L501.9520, L501.2300, L501.9310 ####[facility] [address] [place], [address] T PROT 6.6 g/dL Normal 6.4-8.2 [facility] Comment on above: Order Comment: 1 Performed By: #### L 506.1000, L504.2610, L100.0100, L500.4050, L501.5200, L501.9520, L501.2300, L501.9310 ####[facility] [address] [place], [address] Urea nitrogen [Mass/Vol] 11 mg/dL Normal 7-18 [facility] Comment on above: Order Comment: 1 Performed By: #### L 506.1000, L504.2610, L100.0100, L500.4050, L501.5200, L501.9520, L501.2300, L501.9310 ####[facility] [address] [place], [place], [address] LDHon 09-19-2023 LDH 194 U/L Normal 84-246 [facility] Comment on above: Order Comment: 1 Performed By: #### L 506.1000, L504.2610, L100.0100, L500.4050, L501.5200, L501.9520, L501.2300, L501.9310 ####[facility] [address] [place], [place], [address] Magnesiumon 09-19-2023 Magnesium [Mass/Vol] 2.2 mg/dL Normal 1.6-2.6 [facility] Comment on above: Order Comment: 1 Performed By: #### L 506.1000, L504.2610, L100.0100, L500.4050, L501.5200, L501.9520, L501.2300, L501.9310 ####[facility] [address] [place], [place], [address] Magnesium measurementOrdered By: Wilmer Miles on 09-19-2023 Magnesium [Mass/Vol] 2.2 mg/dL 1.6-2.6 [facility] Phosphoruson 09-19-2023 Phosphate [Mass/Vol] 3.6 mg/dL Normal 2.5-4.9 [facility] Comment on above: Order Comment: 1 Performed By: #### L 506.1000, L504.2610, L100.0100, L500.4050, L501.5200, L501.9520, L501.2300, L501.9310 ####[facility] [address] [place], [address] Phosphorus measurementOrdere d By: [facility] on 09-19-2023 Phosphorus Level 3.6 mg/dL 2.5-4.9 [facility] Serum or plasma thyroxine (T 4) measurement (mass/volume)Ordered By: Wilmer Lopezamanuel on 09-19-2023 T4 [Mass/Vol] 12.0 ug/dL 4.8-13.9 [facility] TSH QnOrdered By: Wilmer Lopez amanuel on 09-19-2023 Thyroid Stimulating Hormone (TSH) 0.78 uIU/mL 0.358-3.74 [facility] No Panel InformationOrdered By: Breonna Dooley on 11-26-2022 Thyroid Stimulating Hormone (TSH) 0.20 uIU/mL 0.358-3.74 [facility] Absolute lymphocyte countOrd ered By: Wilmer Lopezamanuel on 09-26-2022 Lymphocytes Auto (Unsp spec) [#/Vol] 1.32 10*3/uL 0.83-4.51 [facility] Basophil percentageOrdered B y: Wilmer Lopez on 09-26-2022 Basophil percentage 2.6 mg/dL 2.5-4.9 [facility] Basophils/100 WBC (Bld) 0.8 % 0-1 [facility] Bilirubin [Mass/Vol] 0.30 mg/dL 0.20-1.00 [facility] Comment on above: For patients on eltr ombopag therapy, use of Dimension [place] TBIL is not recommended. Chloride [Moles/Vol] 109 mmol/L 98-107 [facility] Eosinophils/100 WBC (Bld) 2.0 % 0-5 [facility] Glucose [Mass/Vol] 101 mg/dL 74-106 [facility] Comment on above: Fasting Glucose resu lt from 100 to 125 mg/dL suggests IMPAIRED HOMEOSTASIS per A.D.A. criteria. LDH [Catalytic activity/Vol] 162 U/L 84-246 [facility] Neutrophils (Bld) [#/Vol] 2.9 10*3/uL 2.0-7.7 [facility] Neutrophils/100 WBC (Bld) 60.1 % 47-70 [facility] Potassium [Moles/Vol] 4.2 mmol/L 3.5-5.1 [facility] Protein [Mass/Vol] 6.7 g/dL 6.4-8.2 [facility] Sodium [Moles/Vol] 141 mmol/L 136-145 [facility] WBC (Bld) [#/Vol] 4.9 10*3/uL 4.4-11.0 [facility] Blood erythrocytes count (nu mber/volume)Ordered By: Wilmer Miles on 09-26-2022 RBC (Bld) [#/Vol] 3.79 10*6/uL 4.2-5.4 [facility] Blood hemoglobin measurement (mass/volume)Ordered By: Wilmer Miles on 09-26-2022 Hemoglobin (Bld) [Mass/Vol] 12.6 g/dL 12.0-15.0 [facility] Blood lymphocytes/100 leukoc ytesOrdered By: Wilmer Miles on 09-26-2022 Lymphocytes/100 WBC (Bld) 26.9 % 19-41 [facility] Blood monocytes/100 leukocyt esOrdered By: Wilmer Miles on 09-26-2022 Monocytes/100 WBC (Bld) 9.6 % 0-10 [facility] Blood platelet mean volumeOr dered By: Wilmer Miles on 09-26-2022 Platelet mean volume (Bld) [Entitic vol] 9.4 fL 6.2-12.0 [facility] Determination of erythrocyte mean corpuscular volume (MCV)Ordered By: Wilmer Miles on 09-26-2022 MCV (RBC) [Entitic vol] 99.7 fL 81-99 [facility] Hematocrit Auto (Bld) [Volum e fraction]Ordered By: Wilmer Miles on 09-26-2022 Hematocrit (Bld) [Volume fraction] 37.8 % 37-47 [facility] Laboratory - Chemistry and C hemistry - challengeOrdered By: Wilmer Miles on 09-26-2022 ALP [Catalytic activity/Vol] 64 U/L 45-117 [facility] ALT [Catalytic activity/Vol] 17 U/L 13-56 [facility] CO2 [Moles/Vol] 27.0 mmol/L 21.0-32.0 [facility] Globulin (S) [Mass/Vol] 3.1 g/dL 2.2-4.2 [facility] Magnesium [Mass/Vol] 2.3 mg/dL 1.6-2.6 [facility] Urea nitrogen/Creatinine [Mass ratio] 16.6 mg/mg 10-20 [facility] Laboratory - Hematology and Cell countsOrdered By: Wilmer Miles on 09-26-2022 Erythrocyte distribution width (RBC) [Entitic vol] 45.6 fL 35.1-43.9 [facility] Erythrocyte distribution width (RBC) [Ratio] 12.5 % 11.6-14.6 [facility] Immature granulocytes/100 WBC (Bld) 0.600 % 0.0-0.9 [facility] Comment on above: IG% - Immature Granu locytes (promyelocytes, myelocytes and metamyelocytes) > 1% indicates that a LEFT SHIFT is Present. MCH (RBC) [Entitic mass] 33.2 pg 27.0-32.0 [facility] Nucleated RBC/100 WBC (Bld) [Ratio] 0 % 0-5 [facility] MCHC Auto (RBC) [Mass/Vol]Or dered By: Wilmer Miles on 09-26-2022 MCHC (RBC) [Mass/Vol] 33.3 g/dL 32-36 [facility] No Panel InformationOrdered By: Wilmer Miles on 09-26-2022 Estimated GFR (MDRD) Amer 77 mL/min >60 [facility] Comment on above: GFR Calc Estimated GFR (MDRD) Non-Af Amer 64 mL/min >60 [facility] Comment on above: Non- GFR Calc Platelets bldOrdered By: Calvin Miles on 09-26-2022 Platelets (Bld) [#/Vol] 141 10*3/uL 150-450 [facility] Serum or plasma albumin gil urement (mass/volume)Ordered By: Wilmer Miles on 09-26-2022 Albumin [Mass/Vol] 3.6 g/dL 3.2-5.0 [facility] Serum or plasma albumin/glob ulin mass ratioOrdered By: Wilmer Miles on 09-26-2022 Albumin/Globulin [Mass ratio] 1.2 {ratio} 0.9-2.4 [facility] Serum or plasma calcium gil urement (mass/volume)Ordered By: Wilmer Lopez on 09-26-2022 Calcium [Mass/Vol] 8.9 mg/dL 8.5-10.1 [facility] Serum or plasma creatinine m easurement (mass/volume)Ordered By: Wilmer Miles on 09-26-2022 Creatinine [Mass/Vol] 0.90 mg/dL 0.55-1.02 [facility] Comment on above: The validity of the calculated GFR & GFRAA in patients over 70 years has not been determined. Clinical correlation is essential. Serum or plasma urea nitroge n measurement (mass/volume)Ordered By: Wilmer John on 09-26-2022 Urea nitrogen [Mass/Vol] 15 mg/dL 7-18 [facility] Thin prep Papanicolaou smear with manual screeningOrdered By: [facility] on 09-26-2022 Thin prep Papanicolaou smear with manual screening 21 U/L 15-37 [facility] Thin prep Papanicolaou smear with manual screening 5 5-15 [facility] No Panel InformationOrdered By: Dr. Dooley on 09-14-2022 Thyroid Stimulating Hormone (TSH) 10.40 uIU/mL 0.358-3.74 [facility] Absolute lymphocyte counton 11-01-2021 Lymphocytes Auto (Unsp spec) [#/Vol] 1.66 10*3/uL 0.83-4.51 [facility] Work Phone: Basophil percentageon 2021 Basophils/100 WBC (Bld) 0.9 % 0-1 [facility] Work Phone: Bilirubin [Mass/Vol] 0.40 mg/dL 0.20-1.00 [facility] Work Phone: Comment on above: For patients on eltr ombopag therapy, use of Dimension [place] TBIL is not recommended. Chloride [Moles/Vol] 106 mmol/L 98-107 [facility] Work Phone: Eosinophils/100 WBC (Bld) 1.7 % 0-5 [facility] Work Phone: Glucose [Mass/Vol] 94 mg/dL 74-106 [facility] Work Phone: Neutrophils (Bld) [#/Vol] 3.1 10*3/uL 2.0-7.7 [facility] Work Phone: Neutrophils/100 WBC (Bld) 58.0 % 47-70 [facility] Work Phone: Potassium [Moles/Vol] 4.0 mmol/L 3.5-5.1 [facility] Work Phone: Protein [Mass/Vol] 7.0 g/dL 6.4-8.2 [facility] Work Phone: Sodium [Moles/Vol] 141 mmol/L 136-145 [facility] Work Phone: WBC (Bld) [#/Vol] 5.4 10*3/uL 4.4-11.0 [facility] Work Phone: Blood erythrocytes count (nu mber/volume)on 11-01-2021 RBC (Bld) [#/Vol] 4.26 10*6/uL 4.2-5.4 [facility]: Blood hemoglobin measurement (mass/volume)on 11-01-2021 Hemoglobin (Bld) [Mass/Vol] 13.8 g/dL 12.0-15.0 [facility] Work Phone: Blood lymphocytes/100 leukoc yteson 11-01-2021 Lymphocytes/100 WBC (Bld) 30.7 % 19-41 [facility] Work Phone: Blood monocytes/100 leukocyt eson 11-01-2021 Monocytes/100 WBC (Bld) 8.3 % 0-10 [facility] Work Phone: Blood platelet mean volumeon 11-01-2021 Platelet mean volume (Bld) [Entitic vol] 9.4 fL 6.2-12.0 [facility] Work Phone: Determination of erythrocyte mean corpuscular volume (MCV)on 11-01-2021 MCV (RBC) [Entitic vol] 97.4 fL 81-99 [facility] Work Phone: Hematocrit Auto (Bld) [Volum e fraction]on 11-01-2021 Hematocrit (Bld) [Volume fraction] 41.5 % 37-47 [facility] Work Phone: Laboratory - Chemistry and C hemistry - challengeon 11-01-2021 ALP [Catalytic activity/Vol] 63 U/L 45-117 [facility] Work Phone: ALT [Catalytic activity/Vol] 17 U/L 13-56 [facility] Work Phone: CO2 [Moles/Vol] 31.0 mmol/L 21.0-32.0 [facility] Work Phone: Globulin (S) [Mass/Vol] 3.2 g/dL 2.2-4.2 [facility] Work Phone: Urea nitrogen/Creatinine [Mass ratio] 16.2 mg/mg 10-20 [facility] Work Phone: Laboratory - Hematology and Cell countson 11-01-2021 Erythrocyte distribution width (RBC) [Entitic vol] 43.8 fL 35.1-43.9 [facility] Work Phone: Erythrocyte distribution width (RBC) [Ratio] 12.2 % 11.6-14.6 [facility] Work Phone: Immature granulocytes/100 WBC (Bld) 0.400 % 0.0-0.9 [facility] Work Phone: Comment on above: IG% - Immature Granu locytes (promyelocytes, myelocytes and metamyelocytes) > 1% indicates that a LEFT SHIFT is Present. MCH (RBC) [Entitic mass] 32.4 pg 27.0-32.0 [facility] Work Phone: Nucleated RBC/100 WBC (Bld) [Ratio] 0 % 0-5 [facility] Work Phone: MCHC Auto (RBC) [Mass/Vol]on 11-01-2021 MCHC (RBC) [Mass/Vol] 33.3 g/dL 32-36 [facility] Work Phone: No Panel Informationon 11-01 Estimated GFR (MDRD) Amer 75 mL/min >60 [facility] Work Phone: Comment on above: GFR Calc Estimated GFR (MDRD) Non-Af Amer 62 mL/min >60 [facility] Work Phone: Comment on above: Non- GFR Calc No Panel InformationOrdered By: Laron Newman on 11-01-2021 Miscellaneous Test Comment MAILED SPECIMEN [facility] Platelets bldon 11-01-2021 Platelets (Bld) [#/Vol] 170 10*3/uL 150-450 [facility] Work Phone: Serum or plasma albumin gil urement (mass/volume)on 11-01-2021 Albumin [Mass/Vol] 3.8 g/dL 3.2-5.0 [facility] Work Phone: Serum or plasma albumin/glob ulin mass ratioon 11-01-2021 Albumin/Globulin [Mass ratio] 1.2 {ratio} 0.9-2.4 [facility] Work Phone: Serum or plasma calcium gil urement (mass/volume)on 11-01-2021 Calcium [Mass/Vol] 9.6 mg/dL 8.5-10.1 [facility] Work Phone: Serum or plasma creatinine m easurement (mass/volume)on 11-01-2021 Creatinine [Mass/Vol] 0.92 mg/dL 0.55-1.02 [facility] Work Phone: Comment on above: The validity of the calculated GFR & GFRAA in patients over 70 years has not been determined. Clinical correlation is essential. Serum or plasma urea nitroge n measurement (mass/volume)on 11-01-2021 Urea nitrogen [Mass/Vol] 15 mg/dL 7-18 [facility] Work Phone: Thin prep Papanicolaou smear with manual screeningon 11-01-2021 Thin prep Papanicolaou smear with manual screening 22 U/L 15-37 [facility] Work Phone: Thin prep Papanicolaou smear with manual screening 4 5-15 [facility] Work Phone: Basophil percentageon 2021 Chloride [Moles/Vol] 106 mmol/L 98-107 [facility] Work Phone: Glucose [Mass/Vol] 88 mg/dL 74-106 [facility] Work Phone: Potassium [Moles/Vol] 4.7 mmol/L 3.5-5.1 [facility] Work Phone: Sodium [Moles/Vol] 142 mmol/L 136-145 [facility] Work Phone: Laboratory - Chemistry and C hemistry - challengeon 09-13-2021 CO2 [Moles/Vol] 31.0 mmol/L 21.0-32.0 [facility] Work Phone: T4 [Mass/Vol] 12.7 ug/dL 4.8-13.9 [facility] Work Phone: Urea nitrogen/Creatinine [Mass ratio] 23.3 mg/mg - [facility] Work Phone: No Panel Informationon 09-13 Estimated GFR (MDRD) Amer 82 mL/min >60 [facility] Work Phone: Comment on above: GFR Calc Estimated GFR (MDRD) Non-Af Amer 68 mL/min >60 [facility] Work Phone: Comment on above: Non- GFR Calc Thyroid Stimulating Hormone (TSH) 3.11 uIU/mL 0.358-3.74 [facility] Work Phone: Serum or plasma calcium gil urement (mass/volume)on 09-13-2021 Calcium [Mass/Vol] 9.2 mg/dL 8.5-10.1 [facility] Work Phone: Serum or plasma creatinine m easurement (mass/volume)on 09-13-2021 Creatinine [Mass/Vol] 0.86 mg/dL 0.55-1.02 [facility] Work Phone: Comment on above: The validity of the calculated GFR & GFRAA in patients over 70 years has not been determined. Clinical correlation is essential. Serum or plasma urea nitroge n measurement (mass/volume)on 09-13-2021 Urea nitrogen [Mass/Vol] 20 mg/dL 7-18 [facility] Work Phone: Thin prep Papanicolaou smear with manual screeningon 09-13-2021 Thin prep Papanicolaou smear with manual screening 5 5-15 [facility] Work Phone: Microbiology: Culture, Genit al Comprehensiveon 01-02-2017 GE use only - for [employer] import when terms are not otherwise specified . Invalid Interpretation Code [facility] Replaced Document: Culture, Genital Comprehensiveon 01-02-2017 CUV . Invalid Interpretation Code [facility] Microbiology: (P) Culture, G enital Comprehensiveon 12-29-2016 GE use only - for [employer] import when terms are not otherwise specified . Invalid Interpretation Code [facility] Office Visit: possible yeast infectionon 12-28-2016 Documentation of current medications (procedure) Done Invalid Interpretation Code [facility] Fall risk assessment No Invalid Interpretation Code [facility] Protein mass conc Done [facility] Tobacco smoking status NHIS Never Invalid Interpretation Code [facility] Tobacco smoking status NHIS Current every day smoker [facility] Tobacco use CPHS Current every day smoker Invalid Interpretation Code [facility] Office Visit: possible yeast infectionon 04-15-2016 Breast Mammogram screening Normal Bilateral Invalid Interpretation Code [facility] Vital Signs Date Time Vital Sign Value Performing Clinician Tejal kelly 04-01-2024 10:09-0500 Body height 157.[address] Breonna Dooley MD Work Phone: [facility] 04-01-2024 10:09-0500 Body mass index (BMI) [Ratio] 20.5 kg/m2 Dr. Breonna Dooley MD Work Phone: [facility] 04-01-2024 10:09-0500 Body temperature 98.5 [degF] Dr. Breonna Dooley MD Work Phone: [facility] 04-01-2024 10:09-0500 Body weight 50.[address] Breonna Dooley MD Work Phone: [facility] 04-01-2024 10:09-0500 Diastolic blood pressure 64 mm[Hg] Dr. Breonna Dooley MD Work Phone: [facility] 04-01-2024 10:09-0500 Heart rate 62 /min Dr. Breonna Dooley MD Work Phone: [phone] [place] [address] 04-01-2024 10:09-0500 Respiratory rate 18 /min Dr. Breonna Dooley MD Work Phone: 6([phone])[phone] [address] 04-01-2024 10:09-0500 SaO2% (BldA) [Mass fraction] 98 % Dr. Breonna Dooley MD Work Phone: [facility] 04-01-2024 10:09-0500 Systolic blood pressure 147 mm[Hg] Dr. Breonna Dooley MD Work Phone: 4([phone])650-901915 [place] [address] 04-01-2024 09:51-0500 Body weight 50.[address] Breonna Dooley MD Work Phone: [facility] 03-28-2023 15:14-0500 Diastolic blood pressure 61 mm[Hg] Dr. Breonna Dooley MD Work Phone: [facility] 03-28-2023 15:14-0500 Heart rate 60 /min Dr. Breonna Dooley MD Work Phone: [facility] 03-28-2023 15:14-0500 Respiratory rate 16 /min Dr. Breonna Dooley MD Work Phone: [facility] 03-28-2023 15:14-0500 SaO2% (BldA) [Mass fraction] 100 % Dr. Breonna Dooley MD Work Phone: [facility] 03-28-2023 15:14-0500 Systolic blood pressure 168 mm[Hg] Dr. Breonna Dooley MD Work Phone: 6([phone] [address] 03-28-2023 14:52-0500 Body mass index (BMI) [Ratio] 20.2 kg/m2 Dr. Breonna Dooley MD Work Phone: 4(141)[phone] [place] [address] 10-02-2022 09:01-0400 Body height 157.[address] Breonna Dooley Work Phone: [facility] 10-02-2022 08:59-0400 Body mass index (BMI) [Ratio] 20.9 kg/m2 Dr. Breonna Dooley Work Phone: 5(689)[phone] [address] 10-02-2022 08:59-0400 Body temperature 97 [degF] Dr. Breonna Dooely Work Phone: [phone](385)[phone] [address] 10-02-2022 08:59-0400 Body weight 51.[address] Breonna Dooley Work Phone: [facility] 10-02-2022 08:59-0400 Diastolic blood pressure 73 mm[Hg] Dr. Breonna Dooley Work Phone: [facility] 10-02-2022 08:59-0400 Heart rate 76 /min Dr. Breonna Dooley Work Phone: 4([phone] [address] 10-02-2022 08:59-0400 Respiratory rate 16 /min Dr. Breonna Dooley Work Phone: [facility] 10-02-2022 08:59-0400 SaO2% (BldA) [Mass fraction] 95 % Dr. Breonna Dooley Work Phone: [facility] 10-02-2022 08:59-0400 Systolic blood pressure 123 mm[Hg] Dr. Breonna Dooley Work Phone: [facility] 09-26-2022 11:15-0400 Body mass index (BMI) [Ratio] 21.1 kg/m2 Dr. Breonna Dooley Work Phone: [facility] 09-26-2022 11:15-0400 Body weight 52.[address] Breonna Dooley Work Phone: [facility] 09-26-2022 10:52-0400 Body mass index (BMI) [Ratio] 21.1 kg/m2 Dr. Breonna Dooley Work Phone: [facility] 09-26-2022 10:52-0400 Body temperature 97.4 [degF] Dr. Breonna Dooley Work Phone: [facility] 09-26-2022 10:52-0400 Body weight 52.[address] Breonna Dooley Work Phone: [facility] 09-26-2022 10:52-0400 Diastolic blood pressure 70 mm[Hg] Dr. Breonna Dooley Work Phone: [facility] 09-26-2022 10:52-0400 Heart rate 57 /min Dr. Breonna Dooley Work Phone: [facility] 09-26-2022 10:52-0400 Respiratory rate 16 /min Dr. Breonna Dooley Work Phone: [facility] 09-26-2022 10:52-0400 SaO2% (BldA) [Mass fraction] 95 % Dr. Breonna Dooley Work Phone: [facility] 09-26-2022 10:52-0400 Systolic blood pressure 147 mm[Hg] Dr. Breonna Dooley Work Phone: [facility] 01-17-2022 10:48-0400 Body height 157.[address] Breonna Dooley Work Phone: [facility] Work Phone: 01-15-2022 09:57-0400 Body mass index (BMI) [Ratio] 20.3 kg/m2 Dr. Breonna Dooley Work Phone: [facility] Work Phone: 01-15-2022 09:57-0400 Body temperature 96.6 [degF] Dr. Breonna Dooley Work Phone: [facility] Work Phone: 01-15-2022 09:57-0400 Body weight 50.[address] Breonna Dooley Work Phone: [facility] Work Phone: 01-15-2022 09:57-0400 Diastolic blood pressure 65 mm[Hg] Dr. Breonna Dooley Work Phone: [facility] Work Phone: 01-15-2022 09:57-0400 Heart rate 67 /min Dr. Breonna Dooley Work Phone: [facility] Work Phone: 01-15-2022 09:57-0400 Respiratory rate 18 /min Dr. Breonna Dooley Work Phone: [facility] Work Phone: 01-15-2022 09:57-0400 SaO2% (BldA) [Mass fraction] 98 % Dr. Breonna Dooley Work Phone: [facility] Work Phone: 01-15-2022 09:57-0400 Systolic blood pressure 138 mm[Hg] Dr. Breonna Dooley Work Phone: [facility] Work Phone: 12-13-2021 10:36-0400 Body mass index (BMI) [Ratio] 20.3 kg/m2 Dr. Breonna Dooley Work Phone: [facility] Work Phone: 12-13-2021 10:36-0400 Body temperature 97.1 [degF] Dr. Breonna Dooley Work Phone: [facility] Work Phone: 12-13-2021 10:36-0400 Body weight 50.[address] Breonna Dooley Work Phone: [facility] Work Phone: 12-13-2021 10:36-0400 Diastolic blood pressure 77 mm[Hg] Dr. Breonna Dooley Work Phone: [facility] Work Phone: 12-13-2021 10:36-0400 Heart rate 66 /min Dr. Breonna Dooley Work Phone: [facility] Work Phone: 12-13-2021 10:36-0400 Respiratory rate 16 /min Dr. Breonna Dooley Work Phone: [facility] Work Phone: 12-13-2021 10:36-0400 SaO2% (BldA) [Mass fraction] 98 % Dr. Breonna Dooley Work Phone: [facility] Work Phone: 12-13-2021 10:36-0400 Systolic blood pressure 133 mm[Hg] Dr. Breonna Dooley Work Phone: [facility] Work Phone: 12-06-2021 10:33-0400 Body height 157.[address] Breonna Dooley Work Phone: [facility] Work Phone: 12-06-2021 10:30-0400 Body mass index (BMI) [Ratio] 20.3 kg/m2 Dr. Breonna Dooley Work Phone: [facility] Work Phone: 12-06-2021 10:30-0400 Body temperature 97.2 [degF] Dr. Breonna Dooley Work Phone: [facility] Work Phone: 12-06-2021 10:30-0400 Body weight 50.[address] Breonna Dooley Work Phone: [facility] Work Phone: 12-06-2021 10:30-0400 Diastolic blood pressure 75 mm[Hg] Dr. Breonna Dooley Work Phone: [facility] Work Phone: 12-06-2021 10:30-0400 Heart rate 78 /min Dr. Breonna Dooley Work Phone: [facility] Work Phone: 12-06-2021 10:30-0400 Respiratory rate 16 /min Dr. Breonna Dooley Work Phone: [facility] Work Phone: 12-06-2021 10:30-0400 SaO2% (BldA) [Mass fraction] 99 % Dr. Breonna Dooley Work Phone: [facility] Work Phone: 12-06-2021 10:30-0400 Systolic blood pressure 140 mm[Hg] Dr. Breonna Dooley Work Phone: [facility] Work Phone: 11-09-2021 13:00-0400 Body mass index (BMI) [Ratio] 20.5 kg/m2 Dr. Breonna Dooley Work Phone: [facility] Work Phone: 11-09-2021 13:00-0400 Body temperature 97.2 [degF] Dr. Breonna Dooley Work Phone: [facility] Work Phone: 11-09-2021 13:00-0400 Body weight 50.[address] Breonna Dooley Work Phone: [facility] Work Phone: 11-09-2021 13:00-0400 Heart rate 72 /min Dr. Breonna Dooley Work Phone: [facility] Work Phone: 11-09-2021 13:00-0400 Respiratory rate 16 /min Dr. Breonna Dooley Work Phone: [facility] Work Phone: 11-09-2021 13:00-0400 SaO2% (BldA) [Mass fraction] 95 % Dr. Breonna Dooley Work Phone: [facility] Work Phone: 11-02-2021 10:04-0400 Body mass index (BMI) [Ratio] 20.3 kg/m2 Dr. Breonna Dooley Work Phone: [facility] Work Phone: 11-02-2021 10:04-0400 Body temperature 97.1 [degF] Dr. Breonna Dooley Work Phone: [facility] Work Phone: 11-02-2021 10:04-0400 Body weight 50.[address] Breonna Dooley Work Phone: [facility] Work Phone: 11-02-2021 10:04-0400 Diastolic blood pressure 74 mm[Hg] Dr. Breonna Dooley Work Phone: [facility] Work Phone: 11-02-2021 10:04-0400 Heart rate 98 /min Dr. Breonna Dooley Work Phone: [facility] Work Phone: 11-02-2021 10:04-0400 Respiratory rate 16 /min Dr. Breonna Dooley Work Phone: [facility] Work Phone: 11-02-2021 10:04-0400 SaO2% (BldA) [Mass fraction] 97 % Dr. Breonna Dooley Work Phone: [facility] Work Phone: 11-02-2021 10:04-0400 Systolic blood pressure 159 mm[Hg] Dr. Breonna Dooley Work Phone: [facility] Work Phone: 11-01-2021 13:41-0400 Body mass index (BMI) [Ratio] 20.3 kg/m2 Dr. Breonna Dooley Work Phone: [facility] Work Phone: 11-01-2021 13:41-0400 Body temperature 97.1 [degF] Dr. Breonna Dooley Work Phone: [facility] Work Phone: 11-01-2021 13:41-0400 Body weight 50.[address] Breonna Dooley Work Phone: [facility] Work Phone: 11-01-2021 13:41-0400 Diastolic blood pressure 80 mm[Hg] Dr. Breonna Dooley Work Phone: [facility] Work Phone: 11-01-2021 13:41-0400 Heart rate 80 /min Dr. Breonna Dooley Work Phone: [facility] Work Phone: 11-01-2021 13:41-0400 Respiratory rate 16 /min Dr. Breonna Dooley Work Phone: [facility] Work Phone: 11-01-2021 13:41-0400 SaO2% (BldA) [Mass fraction] 96 % Dr. Breonna Dooley Work Phone: [facility] Work Phone: 11-01-2021 13:41-0400 Systolic blood pressure 150 mm[Hg] Dr. Breonna Dooley Work Phone: [facility] Work Phone: 10-10-2021 13:45-0400 Body temperature 97.4 [degF] Dr. Breonna Dooley Work Phone: [facility] Work Phone: 10-10-2021 13:45-0400 Diastolic blood pressure 62 mm[Hg] Dr. Breonna Dooley Work Phone: [facility] Work Phone: 10-10-2021 13:45-0400 Heart rate 51 /min Dr. Breonna Dooley Work Phone: [facility] Work Phone: 10-10-2021 13:45-0400 Respiratory rate 18 /min Dr. Breonna Dooley Work Phone: [facility] Work Phone: 10-10-2021 13:45-0400 SaO2% (BldA) [Mass fraction] 96 % Dr. Breonna Dooley Work Phone: [facility] Work Phone: 10-10-2021 13:45-0400 Systolic blood pressure 152 mm[Hg] Dr. Breonna Dooley Work Phone: [facility] Work Phone: 10-10-2021 09:24-0400 Body height 157.[address] Breonna Dooley Work Phone: [facility] Work Phone: 10-10-2021 09:24-0400 Body mass index (BMI) [Ratio] 20.4 kg/m2 Dr. Breonna Dooley Work Phone: [facility] Work Phone: 10-10-2021 09:24-0400 Body weight 50.[address] Breonna Dooley Work Phone: [facility] Work Phone: 09-29-2021 14:04-0400 Body mass index (BMI) [Ratio] 20.1 kg/m2 Dr. Breonna Dooley Work Phone: [facility] Work Phone: 09-29-2021 14:04-0400 Body temperature 97.8 [degF] Dr. Breonna Dooley Work Phone: [facility] Work Phone: 09-29-2021 14:04-0400 Body weight [address] Breonna Dooley Work Phone: [facility] Work Phone: 09-29-2021 14:04-0400 Diastolic blood pressure 70 mm[Hg] Dr. Breonna Dooley Work Phone: [facility] Work Phone: 09-29-2021 14:04-0400 Heart rate 66 /min Dr. Breonna Dooley Work Phone: [facility] Work Phone: 09-29-2021 14:04-0400 Respiratory rate 18 /min Dr. Breonna Dooley Work Phone: [facility] Work Phone: 09-29-2021 14:04-0400 SaO2% (BldA) [Mass fraction] 97 % Dr. Breonna Dooley Work Phone: [facility] Work Phone: 09-29-2021 14:04-0400 Systolic blood pressure 129 mm[Hg] Dr. Breonna Dooley Work Phone: [facility] Work Phone: 09-25-2021 10:13-0400 Body height 157.[address] Breonna Dooley Work Phone: [facility] Work Phone: 09-25-2021 10:13-0400 Body mass index (BMI) [Ratio] 20.1 kg/m2 Dr. Breonna Dooley Work Phone: [facility] Work Phone: 09-25-2021 10:13-0400 Body weight 49.[address] Breonna Dooley Work Phone: [facility] Work Phone: 09-25-2021 10:13-0400 Diastolic blood pressure 69 mm[Hg] Dr. Breonna Dooley Work Phone: [facility] Work Phone: 09-25-2021 10:13-0400 Respiratory rate 18 /min Dr. Breonna Dooley Work Phone: [facility] Work Phone: 09-25-2021 10:13-0400 Systolic blood pressure 157 mm[Hg] Dr. Breonna Dooley Work Phone: [facility] Work Phone: 09-25-2021 10:13-0400 Body height 157.[address] Breonna Dooley Work Phone: [facility] Work Phone: 09-25-2021 10:13-0400 Body mass index (BMI) [Ratio] 20.1 kg/m2 Dr. Breonna Dooley Work Phone: [facility] Work Phone: 09-25-2021 10:13-0400 Body weight 49.[address] Breonna Dooley Work Phone: [facility] Work Phone: 09-25-2021 10:13-0400 Diastolic blood pressure 69 mm[Hg] Dr. Breonna Dooley Work Phone: [facility] Work Phone: 09-25-2021 10:13-0400 Respiratory rate 18 /min Dr. Breonna Dooley Work Phone: [facility] Work Phone: 09-25-2021 10:13-0400 Systolic blood pressure 157 mm[Hg] Dr. Breonna Dooley Work Phone: [facility] Work Phone: 12-28-2016 13:30-0400 BMI (Body Mass Index) 18.65 kg/m2 Marcy Field MD [facility] 12-28-2016 13:30-0400 Body Temperature 96.8 [degF] Marcy Field MD [facility] 12-28-2016 13:30-0400 BP Diastolic 72 mm[Hg] Marcy Field MD [facility] 12-28-2016 13:30-0400 BP Systolic 159 mm[Hg] Marcy Field MD [facility] 12-28-2016 13:30-0400 Height 157.48 cm Marcy Field MD [facility] 12-28-2016 13:30-0400 Pulse (Heart Rate) 70 /min Marcy Field MD [facility] 12-28-2016 13:30-0400 Respiratory Rate 16 /min Marcy Field MD [facility] 12-28-2016 13:30-0400 Weight 46.27 kg Marcy Field MD [facility] Encounters Encounter Date Encounter Type Care Provider Facility Start: 09-23-2024 ambulatory Breonna S Soumya Facility: [facility] Start: 09-18-2024 End: 09-18-[address] Jimmy Tiwari MD -[facility] Work Phone: Start: 09-18-2024 End: 09-18-2024 ambulatory Breonna S Soumya Facility:[facility] Start: 07-06-2024 End: 07-06-[address] Breonna Dooley MD Work Phone: [facility] Work Phone: Start: 07-06-2024 End: 07-06-[address] Reyes Martinez MD -Radiology, [facility] Work Phone: Start: 07-06-2024 End: 07-06-2024 ambulatory Breonna S Soumya Facility:[facility] Start: 04-01-[address] Reynold Newman MD -[facility] Start: 04-01-2024 End: 04-01-[address] Willi Calderon DO -[facility] Work Phone: Start: 04-01-2024 End: 04-01-2024 ambulatory Breonna Dooley Facility:[facility] Start: 09-24-2023 End: 09-24-2023 ambulatory Willi Calderon Facility:[facility] Start: 09-23-2023 End: 09-23-2023 ambulatory Willi Calderon Facility:[facility] Start: 12-04-2022 End: 12-04-[address] Bre[facility] Dooley [facility] [place] Work Phone: Start: 12-04-2022 End: 12-04-[address] Breonna Dooley Work Phone: [facility] Work Phone: Start: 11-26-2022 End: 11-26-[address] Breonna Dooley Work Phone: [facility] Start: 10-02-2022 End: 10-02-[address] Breonna Dooley Work Phone: [facility] Work Phone: Start: 09-26-[address] Breonna roy Work Phone: [facility] Start: 09-26-2022 End: 09-26-[address] Breonna Dooley Work Phone: [facility] Work Phone: Start: 09-21-2022 End: 09-21-[address] Breonna Dooley Work Phone: [facility] Work Phone: Start: 09-14-2022 End: 09-14-2022 ambulatory [facility] Work Phone: Start: 09-14-2022 End: 09-14-2022 Patient encounter procedure [facility] Start: 01-17-2022 End: 01-17-[address] Breonna Dooley Work Phone: [facility] Work Phone: Start: 01-17-2022 End: 01-17-[address] Breonna Dooley Work Phone: [facility] D[facility] Start: 01-15-2022 End: 01-15-[address] Breonna Dooley Work Phone: [facility] Start: 12-13-[address] Breonna roy Work Phone: [facility] Start: 12-13-2021 End: 12-13-[address] Breonna Dooley Work Phone: [facility] Start: 12-08-[address] Breonna roy Work Phone: [facility] Start: 12-06-2021 End: 12-06-[address] Breonna Dooley Work Phone: [facility] Start: 12-01-2021 Non-patient / Non-visit Dr. Anuradha Dooley Work Phone: [facility] Start: 11-23-2021 Non-patient / Non-visit Dr. Anuradha Dooley Work Phone: [facility] Start: 11-20-2021 End: 12-08-[address] Breonna Dooley Work Phone: [facility] Work Phone: Start: 11-20-2021 End: 12-08-[address] Breonna Dooley Work Phone: [facility] Start: 11-20-2021 Non-patient / Non-visit Dr. Anuradha Dooley Work Phone: [facility] Start: 11-09-2021 End: 11-09-[address] Breonna Dooley Work Phone: [facility] Start: 11-02-2021 End: 11-02-[address] Breonna Dooley Work Phone: [facility] Start: 11-01-2021 End: 11-01-[address] Breonna Dooley Work Phone: [facility] Start: 10-24-2021 End: 10-24-[address] Breonna Dooley Work Phone: [facility] Start: 10-10-2021 Non-patient / Non-visit Dr. Anuradha Dooley Work Phone: [facility] Start: 10-10-2021 End: 10-10-2021 Admission to same day surgery center Dr. Breonna Dooley Work Phone: [facility] Start: 09-29-2021 End: 09-29-[address] Breonna Dooley Work Phone: [facility] Start: 09-25-2021 End: 09-25-[address] Breonna Dooley Work Phone: [facility] Spec[facility] Start: 09-25-2021 End: 09-25-[address] Breonna Dooley Work Phone: [facility] Start: 09-20-2021 End: 09-20-2021 Patient encounter procedure [facility] Start: 09-16-2021 End: 09-16-2021 Patient encounter procedure [facility] [place], [facility] Start: 09-13-2021 End: 09-13-2021 Patient encounter procedure [facility] [place] [facility] Date Procedure Procedure Detail Performing Clinician Start: 09-18-2024 Urnls dip stick/tabl et reagent auto microscopy Dr. Breonna Dooley MD Work Phone: Start: 09-18-2024 Serum inorganic phos phate measurement Dr. Breonna Dooley MD Work Phone: Start: 09-18-2024 Plain X-ray abdomen Dr. Breonna Dooley MD Work Phone: Start: 07-06-[address] Breonna Dooley MD Work Phone: Start: 12-04-[address] Breonna hubbard Work Phone: Start: 09-21-2022 Screening mammography Leandra Dooley Work Phone: Start: 01-17-2022 Dual energy X-ray absorptiometry Dr. Breonna Dooley Work Phone: Start: 10-10-[address] Mark Dooley Work Phone: Start: 10-10-2021 Breast, Lumpectomy,S N w/ Neoprobe (Right) Dr. Breonna Dooley Work Phone: Start: 10-10-2021 Radionuclide sentine l lymph node study Dr. Breonna Dooley Work Phone: Start: 09-20-2021 Ultrasonography of breast Start: 09-20-2021 Bilateral mammography Start: 09-16-2021 CT of chest Plan of Treatment Date Care Activity Detail Author Start: 11-01-2021 Patient referral [facility] Work Phone: Start: 10-24-2021 Patient referral [facility] Work Phone: Start: 10-10-2021 Anes integ extremities ant trunk & perineum nos ANESTH SKIN EXT/PER/ATRUNK [facility] Work Phone: Start: 10-10-2021 Mastectomy partial w/axillary lymphadenectomy P-MASTECTOMY W/LN REMOVAL [facility] Work Phone: Start: 10-10-2021 Patient discharge [facility] Work Phone: Start: 12-28-2016 End: 12-28-2016 Bacteria genital culture *CUV - Culture, VAG/CX [facility] Start: 12-28-2016 End: 12-28-2016 Appointment Appointment [facility] Start: 12-28-2016 End: 12-28-2016 Bacteria genital culture [facility] CBC W Auto Different ial panel - Blood [facility] Work Phone: CBC W Auto Different ial panel - Blood [facility] DXA Bone [Mass/Area] Bone density [facility] [place] Work Phone: Lactate dehydrogenas e measurement [facility] Magnesium [Mass/volu me] in Serum or Plasma [facility] MG Breast - bilatera l Screening [facility] NM Lymph node Views [facility] Work Phone: Patient referral [facility] Work Phone: Radiation oncology A ND/OR radiotherapy [facility] [place] Work Phone: [facility] Payers Date Payer Category Payer Private Health Insurance [id number] 2021 Self-pay [id number] 2021 Medicare [id number] Unknown [id number] [id number] Unknown [id number] [id number] [id number] Unknown [id number] 2.16.8 [id number] Unknown [id number] 2.16.8 [id number] Unknown [id number] 2.16.8 [id number] Unknown [id number] 2.16.8 [id number] Unknown [id number] 2.16.8 [id number] Unknown [id number] [id number] [id number] Social History Date Type Detail Facility Start: 07-30-2016 End: 11-09-2021 Tobacco smoking status NHIS Unknown if ever smoked [facility] Start: 1940 Sex Assigned At Female [facility] Start: 11-09-2021 Tobacco smoking stat us NHIS Smokes tobacco daily (finding) [facility] Start: 07-13-2024 Sex Female (finding) [facility] Medical Equipment Procedure Code Equipment Code Equipment Origin al Text Equipment Identifier Dates Ligation clip, metallic ()[id number] FDA Start: 10-10-2021 Ligation clip, metallic ()[id number] FDA Start: 10-10-2021 Ligation clip, metallic ()[id number] FDA Start: 10-10-2021 Goals Date Patient Goal Desired Activity /State Mental Status Date Assessment Result Facility 03-28-2023 Cognitive function Voice/Name [facility] Work Phone: 09-26-2022 Cognitive function Awake;Alert;A ppropriate;Fol lows Commands [facility] Work Phone: 10-10-2021 Cognitive function Voice/Name [facility] Work Phone: Radiology Diagnostic study note 09-18-2024 Note Date & Type Note Facility 09-18-2024 Radiology Diagnostic study note [facility] Imaging Services [address] [place], [place] [address] Acute Abdomen Inc Chest MR#: [id number] Acct: [id number] Name: BRANDON GOODMAN Rep #: [id number] : 1940 F 84 From: Pratik Jauregui MD PCP: Dr. Breonna Dooley MD Status: REG CLI Study:Acute Abdomen Inc Chest Date of Exam: 09/18/24 Exam# [id number] Ordering Dr: Jimmy Tiwari MD PROCEDURE: ACUTE ABDOMEN INC CHEST 09/18/2024 REASON FOR EXAM: PAIN, BLOATING TECHNIQUE: Single view chest with supine and upright views of the abdomen. COMPARISON: None. FINDINGS: There are numerous calcified mediastinal and hilar lymph nodes bilaterally. There are multiple benign calcified granulomas in both lungs. There is no lobar consolidation or pleural effusion. The heart size is normal. Status post right partial mastectomy. There is a nonobstructive bowel gas pattern. There is stool in the rectal vault. There are no abnormal soft tissue calcifications. There is a left total hip arthroplasty. 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 RAD/Acute Abdomen Inc Chest IMPRESSION: 1. No evidence of acute cardiopulmonary or acute abdominal pathology. 2. Other findings as noted. Reading Location: [id number] CC: Dr. Breonna Dooley MD; Dr. Jimmy Tiwari MD ~ Application Security Developer: Signed [facility] Work Phone: Radiology Diagnostic study note 07-07-2024 Note Date & Type Note Facility 07-07-2024 Radiology Diagnostic study note [facility] Imaging Services [address] [place] [id number] Inj/Asp Estrada Jt Should/Hip/Knee MR#: [id number] Acct: [id number] Name: BRANDON GOODMAN Rep #: [id number] : 1940 F 84 From: Bayron Mann MD PCP: Dr. Breonna Dooley MD Status: REG CLI Study:Inj/Asp Estrada Jt Should/Hip/Knee Date of Exam: 07/06/24 Exam# [id number] Ordering Dr: Suze Martinez MD EXAM: Right shoulder injection under fluoroscopic guidance. CLINICAL HISTORY: Pain. COMPARISON: None. TECHNIQUE: See below. FINDINGS: Informed consent was obtained. Fluoroscopic guidance, aseptic technique, local anesthesia were utilized. The right shoulder joint was entered directly with 20 gauge spinal needle. 2 cc of omni view 370 were introduced, confirming the tip of the needle to be within the glenohumeral joint. Subsequently, 4 cc of lidocaine 1% mixed with 8 cc of Depo-Medrol were injected and the needle removed. Patient tolerated the procedure well and was discharged home directly. RAD/Inj/Asp Estrada Jt Should/Hip/Knee IMPRESSION: Uneventful fluoro guided intra-articular injection of local anesthetic and a particulate steroid. Reading Location: [facility] CC: Dr. Breonna Dooley MD; Dr. Reyes Martinez MD ~ Application Security Developer: Signed [facility] Evaluation note 04-01-2024 Note Date & Type Note Facility 04-01-2024 Evaluation note Diagnosis Onset Date Resolution Breast cancer in female acute April 01, 2 024 8:44am Osteopenia acute April 01, 2024 8:44am Breast cancer, right breast acute April 01, 024 8:44am [facility] Work Phone: Evaluation note Note Date & Type Note Facility Evaluation note No assessment information availa ble [facility] Work Phone: Evaluation note Note Date & Type Note Facility Evaluation note Diagnosis Onset Date Breast mass, right acute [facility] Work Phone: Evaluation note Note Date & Type Note Facility Evaluation note Diagnosis Onset Date Breast mass, right acute Breast cancer, right acute [facility] Work Phone: Evaluation note Note Date & Type Note Facility Evaluation note Diagnosis Onset Date Breast cancer in female acut e Breast cancer in female acut e Encounter for education acut e Osteopenia acute Breast cancer, right breast acute Breast cancer, right breast acute [facility] Work Phone: Evaluation note Note Date & Type Note Facility Evaluation note Diagnosis Onset Date Breast cancer in female acut e Breast cancer in female acut e Encounter for education acut e Osteopenia acute Breast cancer, right breast acute Breast cancer, right breast acute Breast cancer, right breast acute Breast cancer, right breast acute [facility] Work Phone: Evaluation note Note Date & Type Note Facility Evaluation note Diagnosis Onset Date Breast cancer in female acut e Osteopenia acute Breast cancer, right breast acute [facility] Work Phone: Reason for referral (narrative) Note Date & Type Note Facility Reason for referral (narrative) No reason for referral information available [facility] Work Phone: Chief Complaint and Reason for Visit Chief Complaint TOBACCO USE LT BREAST MASS Chief Complaint TOBACCO USE LT BREAST MASS R BREAST BIRADS 4 R. BREAST BIOPSY Reason for Visit Breast mass, right Chief Complaint TOBACCO USE LT BREAST MASS R BREAST BIRADS 4 R. BREAST BIOPSY Discuss results and breast surgery R US GUIDED WIRE LOC LUMPECTOMY SN BX RADIOTRACER R US GUIDED WIRE LOC LUMPECTOMY SN BX RADIOTRACER Reason for Visit Breast mass, right Breast cancer, right Chief Complaint TOBACCO USE LT BREAST MASS R BREAST BIRADS 4 R. BREAST BIOPSY Discuss results and breast surgery R US GUIDED WIRE LOC LUMPECTOMY SN BX RADIOTRACER R US GUIDED WIRE LOC LUMPECTOMY SN BX RADIOTRACER 2 W FU LUMP ON RT BREAST NEW PT - BREAST CANCER CHEMO ED CONSULT - breast MEYER otv 3 MO - LABS Reason for Visit Breast cancer in [facility] Breast cancer in female Encounter for education Osteopenia Breast cancer, right breast Breast cancer, right breast Chief Complaint R BREAST BIRADS 4 R. BREAST BIOPSY Discuss results and breast surgery R US GUIDED WIRE LOC LUMPECTOMY SN BX RADIOTRACER R US GUIDED WIRE LOC LUMPECTOMY SN BX RADIOTRACER 2 W FU LUMP ON RT BREAST NEW PT - BREAST CANCER CHEMO ED CONSULT - breast MEYER otv OTV 3 MO - LABS 1 month f/u post RT SCREENING Reason for Visit Breast cancer in [facility] Breast cancer in female Encounter for education Osteopenia Breast cancer, right breast Breast cancer, right breast Breast cancer, right breast Breast cancer, right breast Chief Complaint SCREENING; CC RESULT S TO SOUMYA Zhu MD 6MO LABS PROLIA 3 MO - LABS 4 month f/u breast (mammo 09/21) TOBACCO USE Reason for Visit Breast cancer in [facility] Osteopenia Breast cancer, right breast Chief Complaint Admit Date 6 MONTH F/U BREAST April 01, 2024 8:44am Reclast April 01, 2024 9:15am LT SHOULDER INJECTION July 06, 2024 8 :28am Reason for Visit Admit Date Breast cancer in female April 01, 8:44am Osteopenia April 01, 2024 8:44am Breast cancer, right breast March 8:44am Chief Complaint Admit Date LT SHOULDER INJECTION July 06, 2024 8 :28am pain, bloating September 18, 2024 1:34p m Advance Directives Advance Directive Response Recorded Date/ Time Living Will Yes July 30, 2016 4:58pm Power of Personnel Generalist Manager Yes July 30 4:58pm Advance Directive Response Recorded Date/ Time Name of Medical Power of Personnel Generalist Manager DAUGHTER October 03, 2021 8:15am Living Will Yes October 03, 2021 8:15am Power of Personnel Generalist Manager Yes October 03 8:15am Advance Directive Response Recorded Date/ Time Advance Directives Yes March 4:43pm Living Will Yes March 28 4:43pm Power of Personnel Generalist Manager Yes March 28, 2022 4:43pm Advance Directive Response Recorded Date/ Time Advance Directives on File Yes Decem 2021 4:43pm Advance Directives Yes March 4:43pm Living Will Yes March 28 4:43pm Power of Personnel Generalist Manager Yes March 28, 2022 4:43pm Advance Directive Response Recorded Date/ Time Living Will Yes March 28 4:43pm Do you have a Healthcare Power of Personnel Generalist Manager? Yes March 28, 2022 4:43pm Advance Directives on File Yes Decem 2021 4:43pm Advance Directives Yes March 4:43pm Advance Directive Response Recorded Date/ Time Advance Directives Yes March 4:43pm Family History Relationship Condition Age at Onset Recorded Date/T dariel sister Malignant neoplasm of breast Unknown brother Cerebrovascular accident (CVA) Unknown Cardiac disease Unknown Summary Purpose Additional Source Comments Goals (unrecognized section and content) Goals may be documented in a n alternate sectionGoals may be documented in an alternate sectionGoals may be documented in an alternate sectionGoals may be documented in an alternate sectionGoals may be documented in an alternate sectionGoals may be documented in an alternate sectionGoals may be documented in an alternate section Care Teams (unrecognized sec tion and content) Team Status: Active Member Role Status Dates Dr. Breonna Dooley MD Family Provider Active Dr. Breonna Dooley MD Primary Care Provider Active Team Status: Inactive Member Role Status Dates Dr. Breonna Dooley MD Primary Care Provider, Attendin g Provider Active Team Status: Inactive Member Role Status Dates Dr. Breonna Dooley MD Primary Care Provider, Referrin g Provider Active Dr. Wilmer Miles MD Attending Provider Active Team Status: Inactive Member Role Status Dates Dr. Breonna Dooley MD Primary Care Provider Active Dr. Willi Calderon DO Attending Provider Active Team Status: Active Member Role Status Dates Dr. Breonna Dooley MD Primary Care Provider Active Dr. Laron Newman MD Attending Provider, Referrin g Provider Active Dr. Willi Calderon DO Other Provider Active Team Status: Inactive Member Role Status Dates Dr. Willi Calderon DO Attending Provider, Referring P melissa Active Dr. Breonna Dooley MD Primary Care Provider Active Team Status: Inactive Member Role Status Dates Dr. Breonna Dooley MD Primary Care Prov ider, Attending Provider, Referring Provider Active Team Status: Active Member Role Status Dates Dr. Breonna Dooley MD Primary Care Provider Active Team Status: Inactive Member Role Status Dates Dr. Breonna Dooley MD Primary Care Provider Active Start: April 01, 2024 End: April 01, 2024 Dr. Breonna Dooley MD Referring Provider Active Start: April 01, 2024 End: April 01, 2024 Dr. Willi Calderon DO Attending Provider Active Start: April 01, 2024 End: April 01, 2024 Team Status: Active Member Role Status Dates Dr. Breonna Dooley MD Primary Care Provider Active Start: April 01, 2024 Dr. Laron Newman MD Attending Provider Active Start: April 01, 2024 Dr. Laron Newman MD Referring Provider Active Start: April 01, 2024 Dr. Willi Calderon DO Other Provider Active Sta rt: April 01, 2024 Team Status: Inactive Member Role Status Dates Dr. Breonna Dooley MD Primary Care Provider Active Start: July 06, 2024 End: July 06, 2024 Dr. Reyes Martinez MD Attending Provider Active Start: July 06, 2024 End: July 06, 2024 Dr. Reyes Martinez MD Referring Provider Active Start: July 06, 2024 End: July 06, 2024 Team Status: Inactive Member Role Status Dates Dr. Breonna Dooley MD Primary Care Provider Active Start: September 18, 2024 End: September 18, 2024 Dr. Jimmy Tiwari MD Attending Provider Active Start: September 18, 2024 End: September 18, 2024 Dr. Jimmy Tiwari MD Referring Provider Active Start: September 18, 2024 End: September 18, 2024 INFORMATION SOURCE (unrecogn ized section and content) DATE CREATED AUTHOR 09/22/2024 [facility] FOR RECORDS PERTAINING TO PATIENTS WHO ARE OR HAVE BEEN ENROLLED IN A CHEMICAL DEPENDENCY/SUBSTANCEABUSE PROGRAM, SOME INFORMATION MAY BE OMITTED. This clinical summary was aggregated from multiple sources. Caution should be exercised in using it in the provision of clinical care. This summary normalizes information from multiple sources, and as a consequence, information in this document may materially change the coding, format and clinical context of patient data. In addition, data may be omitted in some cases. CLINICAL DECISIONS SHOULD BE BASED ON THE PRIMARY CLINICAL RECORDS. [employer] provides no warranty or guarantee of the accuracy or completeness of information in this document.
== END | disposition home or self-care (01) ==
LOC: OPBI 10:14
PROVIDERS: PCP Family Medicine; Referring Provider Internal Medicine Medical Oncology; Visit Provider Internal Medicine Medical Oncology
DX: Z12.31 Encounter for screening mammogram for malignant neoplasm of breast (principal)
CPT/HCPCS: 77063; 77067

== ENCOUNTER → 2024-10-07 | Outpatient (CLI) | payer MEDICARE, SELFPAY ==
--- NOTE | 2024-10-07 13:22 | BD_ITS ---
PROCEDURE: DEXA BONE DENSITY STUDY 10/07/2024 REASON FOR EXAM: F, age 84 y/o . Postmenopausal. TECHNIQUE: DEXA BONE DENSITY STUDY COMPARISON: Prior study dated January 17, 2022. FINDINGS: BMD and T-SCORES Lumbar spine: 0.980 g/cm2, T-score -0.5 Levels: L1 through L4 Change from prior: Improvement of 5.2%. Right femoral neck: 0.593 g/cm2, T-score -2 point Femoral neck comparison data not recommended for monitoring change. Right total hip: 0.662 g/cm2, T-score -2.3 Change from prior: Loss of 3.7%. The World Health Organization has defined the following categories based on bone density: Normal bone density: T-score equal to or greater than -1.0 Osteopenia: T-score between -1.0 and -2.5 Osteoporosis: T-score equal to or less than -2.5 The patient does meet the pharmacological treatment recommendations for prevention of osteoporosis. BD/Dexa Bone Density Study IMPRESSION: OSTEOPENIA. Recommend follow-up as clinically warranted. Reading Location: [id number]
== END | disposition home or self-care (01) ==
LOC: OPBD 13:11
PROVIDERS: PCP Family Medicine
DX: Z78.0 Asymptomatic menopausal state (principal)
CPT/HCPCS: 77080

== ENCOUNTER → 2024-10-27 | Outpatient (CLI) | payer MEDICARE, SELFPAY ==
--- NOTE | 2024-10-27 14:11 | ECHOCS_ITS ---
Reason For Study Reason For Study: Murmur Procedure This was a 2D Doppler, Color Flow transthoracic echocardiogram. Myocardial strain analysis was performed in this exam to aid in the assessment of cardiac function. Contrast injection was performed. Exam performed in department. Left Ventricle Normal LV size. Mild concentric left ventricular hypertrophy. The global longitudinal strain = -21.6 % (normal). The estimated ejection fraction is 65 %. Stage 1 diastolic dysfunction. No regional wall motion abnormalities noted. Right Ventricle Normal RV size. Normal systolic function. Atria The left and right atria are normal. Mitral Valve The mitral valve is structurally normal. No prolapse or stenosis seen. Trivial mitral valve insufficiency. Tricuspid Valve Normal tricuspid valve. Trivial tricuspid valve insufficiency. Pulmonary artery systolic pressure is 31 mmHg. Aortic Valve Trisinus/trileaflet aortic valve. Mild focal aortic valve thickening. There is no aortic stenosis. Pulmonic Valve Normal pulmonic valve. Trivial pulmonic valve insufficiency. Great Vessels Normal sized aortic root. Pericardium/Pleural No pericardial effusion. Medication 22 gauge I.V. with prn adaptor inserted into left arm. Diluted definity 1.5ml given slow IV push to enhance endocardial definition. MMode/2D Measurements & Calculations LVIDd: 4.0 cm IVSd: 1.2 cm LVOT diam: 1.7 cm LVIDs: 2.7 cm LVPWd: 0.87 cm RVDd: 3.3 cm FS: 32.9 % LVOT area: 2.2 cm2 Ao root diam: 3.0 cm LAV(MOD-bp): 32.8 ml LVAd ap4: 21.6 cm2 LAV(MOD-bp) Indexed: 22.6 ml/m2 LVLd ap4: 6.3 cm LAV(MOD-sp2): 29.9 ml EDV(MOD-sp4): 60.0 ml LAV(MOD-sp4): 35.6 ml EDV(sp4-el): 62.9 ml LVAs ap4: 9.4 cm2 LVLs ap4: 4.4 cm ESV(MOD-sp4): 16.5 ml ESV(sp4-el): 16.9 ml EF(MOD-sp4): 72.5 % EF(sp4-el): 73.1 % SV(MOD-sp4): 43.5 ml SV(sp4-el): 46.0 ml LA A4 area: 14.1 cm2 SI(MOD-sp4): 30.0 ml/m2 LA dimension(2D): 2.4 cm RA A4 area: 11.1 cm2 TAPSE: 2.2 cm Time Measurements MV dec time: 0.23 sec Doppler Measurements & Calculations MV E max jorge l: 87.0 cm/sec Lat Peak E' Jorge L: 5.5 cm/sec Med Peak E' Jorge L: 6.3 cm/sec MV A max jorge l: 109.1 cm/sec E/E' lat: 15.9 E/E' med: 13.7 MV E/A: 0.80 MV V2 max: 150.0 cm/sec MV P1/2t max jorge l: 150.4 cm/sec Ao V2 max: 119.0 cm/sec MV max P.0 mmHg MV P1/2t: 102.7 msec Ao max P.7 mmHg MV V2 mean: 78.8 cm/sec MV dec slope: 429.0 cm/sec2 Ao V2 mean: 87.8 cm/sec MV mean P.1 mmHg MVA(P1/2t): 2.1 cm2 Ao mean P.4 mmHg MV V2 VTI: 56.9 cm Ao V2 VTI: 34.1 cm MVA(VTI): 1.2 cm2 AV (velocity ratio): 0.90 DIAMANTE(I,D): 2.0 cm2 DIAMANTE(V,D): 2.2 cm2 LV V1 max: 117.9 cm/sec SV(LVOT): 67.9 ml PA V2 max: 84.6 cm/sec LV V1 max P.6 mmHg LV V1 mean P.1 mmHg LV V1 mean: 82.8 cm/sec LV V1 VTI: 30.6 cm TR max jorge l: 264.8 cm/sec TR max P.0 mmHg ECHO/Echo Complete W/ Contrast Interpretation Summary The estimated ejection fraction is 65 %. Stage 1 diastolic dysfunction. Mild focal aortic valve thickening. Contrast injection was performed. Ordering Physician: Jimmy Tiwari Referring Physician: Jimmy Tiwari Performed By: Bob Reagan RCS
== END | disposition home or self-care (01) ==
LOC: CVS 13:39
PROVIDERS: PCP Family Medicine; Referring Provider Family Medicine; Visit Provider Family Medicine
DX: R01.1 Cardiac murmur, unspecified (principal)
CPT/HCPCS: 93306; Q9957; A4216; C8929